=== PATIENT | male | born 1985 | race African-American/Black ===

== ENCOUNTER 2023-06-11 14:04 | Emergency (ER) | payer MEDICAID, SELFPAY ==
[2023-06-11] VITALS (18 sets, daily range): BP systolic 116–126; BP diastolic 76–88; PULSE 72–88; RESP 14–24; TEMP 36.8; O2SAT 94–100
--- NOTE | 2023-06-11 14:27 | ED.GENADUL_ITS ---
Discharge Plan Disposition Patient Disposition: Home Condition: Good Discharge Details Clinical Impression: Depression Primary Care Provider: None,None ED Provider: Von Beck Home Meds and New Rx's Prescriptions: No Action No Known Home Meds Discharge Instructions Instructions: Depression (ED) Additional Instructions: Please abide by the safety plan established with you by your mental health advocates. If you notice any worsening of your symptoms, or any new symptoms such as vomiting, diarrhea, fever, chills, shortness of breath, chest pain, numbness, weakness, or fainting , please return immediately to the emergency department for reevaluation. Please follow up with your primary care provider as soon as possible for reassessment and reevaluation. As always, it was a pleasure participating in your medical care today. Referrals: Abida Vilchis [Emergency Nurse] - Discharge Data Discharge Date/Time-TO BE ENTERED AT DEPARTURE: 06/12/23 10:52 Medical Decision Making <STEVAN Morales - Last Filed: 06/14/23 09:43> Patient is a pleasant 38-year-old male with past medical history significant for chronic alcohol use, pack-a-day smoker, presenting today with chief complaint of shortness of breath and suicidal ideation. He reports that he has plans to drink himself to . Did drink prior to arrival. He has been clean historically and states that he has not had any seizures with his withdrawals. Drank just prior to arrival and is not currently feeling like he is having any withdrawal symptoms. States that he has at max strength about 1 cake per day or half a gallon of hard liquor. Shortness of breath sounds to be chronic and he associates with smoking. He denies any chest pain. No fevers or chills. Endorses chronic cough but no change in his sputum production. Denies any GI upset today but states that yesterday he was having some vomiting associated with alcohol intake and that this was streaked with blood. No lauro red blood or large amounts of emesis. On exam, patient appears nontoxic. He is not tremulous or diaphoretic. He is resting comfortably no acute distress. Lungs are clear, normal cardiac exam. He does not appear anxious or restless. No acute evidence of ETOH withdrawal. Will put on CIWA with amount he drinks. No LE edema, calf pain. 2+ distal pulses. He has limited insight but is also intoxicated at this time. Endorses want to via ETOH intoxication and OD. Patient in safety clothing, one to one observer. Will obtain cxr for SOB, ECG, labs. Once sober, plan for MH evaluation. Concerned about MH. In regards to SOB, he is not having CP, unlikely ACS but will evaaluate with troponin. As this has been going on for days, not likely to need delta unless elevation. He does no thave personal, familial history or other risk factor for PE. No evidence of dissection. No chest trauma. He also advises that this could be asasociated with smoking. Will give nicotine supplementation. ECG without acute abnormaalaity. Labs reviewed. ETOH level 146. Has blood in urine which will need to be reevaluated by PCP. No other acute abnormality. At the end of my shift, patient resting comfortably, voluntarily waiting for MH evaluation and possible placement. Care transitioned to Albino Hilton with MH evaluation and disposition pending. 1600-patient signed out to me pending alcohol clearance, monitoring for any withdrawal symptoms, and psychiatric evaluation for suicidal ideations. Patient remained stable with no complaints or needs requested. Patient did have a recheck of alcohol and level was 12 so mental health was called for evaluation and evaluation. Patient signed out to Dr. Camille Stevenson pending psychiatric evaluation and recommendation. <Jorge Hilton, MELVIN - Last Filed: 06/12/23 00:20> Patient is a pleasant 38-year-old male with past medical history significant for chronic alcohol use, pack-a-day smoker, presenting today with chief complaint of shortness of breath and suicidal ideation. He reports that he has plans to drink himself to . Did drink prior to arrival. He has been clean historically and states that he has not had any seizures with his withdrawals. Drank just prior to arrival and is not currently feeling like he is having any withdrawal symptoms. States that he has at max strength about 1 cake per day or half a gallon of hard liquor. Shortness of breath sounds to be chronic and he associates with smoking. He denies any chest pain. No fevers or chills. Endorses chronic cough but no change in his sputum production. Denies any GI upset today but states that yesterday he was having some vomiting associated with alcohol intake and that this was streaked with blood. No lauro red blood or large amounts of emesis. On exam, patient appears nontoxic. He is not tremulous or diaphoretic. He is resting comfortably no acute distress. 1600-patient signed out to me pending alcohol clearance, monitoring for any withdrawal symptoms, and psychiatric evaluation for suicidal ideations. Patient remained stable with no complaints or needs requested. Patient did have a recheck of alcohol and level was 12 so mental health was called for evaluation and evaluation. Patient signed out to Dr. Camille Stevenson pending psychiatric evaluation and recommendation. HPI <STEVAN Morales - Last Filed: 06/14/23 09:43> General Date/Time Provider Initiated Documentation: 06/11/23 14:11 . Limitations to Documentation: no limitations . Information obtained by: patient and RN notes reviewed . History of Present Illness 38 year old M presents to the emergency department with the chief complaint of SI, wishes to detox from ETOH, described as moderate and similar to prior episodes, Quality is described as other (denies any pain), and is localized to the chest (endorses some SOB). Patient started experiencing this day(s) (chronic issues, worse in recent days) and it has been constant. No relieving factors improve symptom(s), No exacerbating factors reported . Patient notes cough (associated with smoking, states chronic), malaise and shortness of breath; denies chest pain, fever/chills, headaches, nausea/vomiting, rash, syncope and weakness. Patient did receive the following treatments prior to arrival, none Related Data Home Medications Medication Instructions Recorded Confirmed Unknown [No Known Home Meds] 06/11/23 06/11/23 Allergies Allergy/AdvReac Type Severity Reaction Status Date / Time tomato Allergy Intermediate Hives Unverified 06/11/23 14:09 General Stated Complaint: PsychEval MIRI: 2 Review of Systems <STEVAN Morales - Last Filed: 06/14/23 09:43> Constitutional Constitutional: Reports as per HPI, Denies chills, Denies fever(s) and Denies headache(s) ENT Ears, Nose, Mouth, and Throat: Denies headache(s) Cardiovascular Cardiovascular: Reports as per HPI, Denies chest pain and Denies lightheadedness Respiratory Respiratory: Reports as per HPI and Denies cough Gastrointestinal Gastrointestinal: Reports as per HPI, Denies abdominal pain, Denies change in bowel habits, Denies nausea and Denies vomiting Genitourinary Genitourinary: Denies system reviewed and no additional complaints, except as documented (denies any change in urinary habits) Integumentary/Breasts Skin/Breast: Reports as per HPI and Denies rash Neurologic Neurologic: Denies abnormal movements, Denies abnormal speech and Denies headache(s) PFSH <STEVAN Morales - Last Filed: 06/14/23 09:43> All Active Problems (Updated 06/12/23 @ 10:44 by Von Beck DO) Depression (Chronic) Social History Smoking/Tobacco Use Status: Current every day Tobacco Type: smokeless tobacco Smoking risk assessment performed?: Yes Alcohol Intake: current Alcohol Intake frequency: 3 or more drinks per day Alcohol type: beer Drug use: Never Substance use type: does not use Exam <STEVAN Morales - Last Filed: 06/14/23 09:43> Const General: cooperative, healthy appearing, comfortable, no acute distress, well developed and well groomed Nutritional Appearance: average body habitus and well nourished Orientation: alert and awake Eyes General: appearance normal, both eyes and all related structures Resp Effort & Inspection: normal respiratory effort, able to speak in complete sentences and no respiratory distress Auscultation: clear to auscultation bilaterally, no rales, no rhonchi and no wheezes Cardio Rate: regular rate Rhythm: regular rhythm Heart Sounds: S1 normal and S2 normal Skin General skin exam: no rashes or lesions noted and other (linear scars on left forearm) Trauma: no lacerations or abrasions Neuro General: patient alert and patient awake Cognition: normal cognition Speech: speech normal Gait: normal gait Psych Appearance: grossly normal and well kempt Mental Status: mental status grossly normal Speech and Movement: speech and movement normal Mood: congruent mood Affect: normal affect Attitude: cooperative Thought Process: normal Thought Content: suicidality (wants to by ETOH) Insight: limited Judgment: limited (has ETOH on board as well) Course <STEVAN Morales - Last Filed: 06/14/23 09:43> Vital Signs Vital signs: Vital Signs Temperature 36.8 C 06/11/23 14:00 Pulse 88 06/11/23 14:00 Respiratory Rate 14 06/11/23 14:00 Blood Pressure 124/80 06/11/23 14:00 Pulse Oximetry 100 06/11/23 14:00 Temperature 36.8 C 06/11/23 14:00 Temperature Source Skin 06/11/23 14:00 Pulse 88 06/11/23 14:00 Respiratory Rate 14 06/11/23 14:00 Blood Pressure 124/80 06/11/23 14:00 Blood Pressure Position Sitting 06/11/23 14:00 Pulse Oximetry 100 06/11/23 14:00 Oxygen Delivery Method Room Air 06/11/23 14:00 Oxygen Flow Rate 0 06/11/23 14:00 Pain Level 10 06/11/23 14:00 Sign Out <STEVAN Morales - Last Filed: 06/14/23 09:43> Sign Out Data: Sign Out Comment: Care transition to Jorge Hilton NP, with disposition pending. Patient hemodynamically stable with no acute abnormalities on labs. Here with chief complaint of shortness of breath, suicidal ideation and homicidality. He is agreeable and pleasant to staff at this time. CIRI protocol is established. No history of seizures with withdrawals. Last alcoholic beverage was just prior to arrival. Patient has not yet seen mental health. Chest x-ray pending. Shortness of breath was reported to be associated with smoking. Last updated by Adelina Becerril PA at 06/11/23 16:40 Sign Out Comment: Seen by crisis. Made a voluntary bed search. Not showing any acute signs of alcohol withdrawal at this time. No acute events overnight. I, Chaz Stevenson, have signed out care to the oncoming team pending voluntary bed search. Medically cleared but would still monitor for signs of significant alcohol withdrawal. Last updated by Chaz Stevenson MD at 06/12/23 04:53
--- NOTE | 2023-06-11 14:30 | RT.EKG_ITS ---
APPROVED REPORT Exam: Resting ECG Reason for Exam: SOB Patient Location: E HR:72 bpm ECG Measurements Heart Rate 72 AXIS WA 172 P 34 QRSd 80 QRS 5 QT 368 T 28 QTc 403 Conclusion Sinus rhythm...normal P axis, V-rate 60- 99 ST elev, probable normal early repol pattern...ST elevation, age<55
--- NOTE | 2023-06-11 14:30 | DI.RAD_ITS ---
Exam(s) XR CHEST 2V PA LATERAL EXAM: XR CHEST 2V PA LATERAL CLINICAL HISTORY: SOB. TECHNIQUE: 2D digital imaging was performed. COMPARISON: No exams were available for comparison FINDINGS: 2 views: Heart size is normal. The mediastinum is not widened. Lungs are clear. No infiltrates nor pleural effusions. IMPRESSION: No acute pulmonary findings. DATA REPOSITORY: RADIATION DOSE DELIVERED:
[2023-06-11 15:06] LABS: Abs Immature Grans 0.03 10^3/uL (0.0-0.06); Absolute Basophil Count 0.04 10^3/uL (0.0-0.2); Absolute Eosinophil Count 0.01 10^3/uL (0.0-0.7); Absolute Lymphocyte Count 1.28 10^3/uL (1.2-3.4); Absolute Monocyte Count 0.39 10^3/uL (0.1-0.8); Absolute Neutrophil Count 4.88 10^3/uL (1.2-6.7); Basophils % 0.6; Eosinophils % 0.2; HCT 42.5 % (40.0-50.0); HGB 14.1 g/dL (13.5-17.5); Immature Grans % 0.5; Lymphocytes % 19.3; MCH 33.1 pg (27.0-33.0); MCHC 33.2 % (32.0-36.0); MCV 100 fL (80-95); MPV 9.2 fL (8.0-11.0); Monocytes % 5.9; Neutrophils % 73.5; Platelet Count 207 10^3/uL (130-400); RBC 4.26 10^6/uL (4.36-5.78); RDW 11.9 % (11.8-14.1); RDW-SD 44.3 fL; WBC 6.63 10^3/uL (4.4-10.8)
[2023-06-11 15:07] LABS: Bilirubin Negative (Negative); Blood Trace-intact (Negative); Clarity Clear (Clear); Glucose Negative (Negative); Ketones Negative (Negative); Leukocyte Esterase Negative (Negative); Nitrite Negative (Negative); pH 5.5 (5-8)
[2023-06-11 15:19] LABS: Bacteria Rare HPF (Negative); Crystals Negative HPF (Negative); Epithelial Cells Rare HPF (Negative); Other Cells Negative (Negative); RBC 0-2 HPF (0-2); WBC 0-2 HPF (0-5)
[2023-06-11 15:20] LABS: C & S Indicated? No; Casts Negative LPF (Negative); Mucus Trace (Negative)
[2023-06-11 15:22] LABS: *AMPHETAMINES SCREEN URINE Negative (Negative); *BARBITURATES SCREEN URINE Negative (Negative); *BENZODIAZEPINES SCREEN URINE Negative (Negative); Cannabinoids THC Negative (Negative); Cocaine Screen,Urine Negative (Negative); METHADONE URINE SCREEN Negative (Negative); OPIATES URINE SCREEN Negative (Negative)
[2023-06-11 15:25] LABS: Tricyclic Antidepressants Negative (Negative)
[2023-06-11 15:27] LABS: Troponin I < 50 ng/L (<or=60)
[2023-06-11 15:33] LABS: Salicylate 3.1 mg/dL (<2.8)
[2023-06-11 15:35] LABS: ALT 43 U/L (16-63); AST 46 U/L (15-37); Albumin 3.9 g/dL (3.4-5.0); Alkaline Phosphatase 73 U/L (46-116); Anion Gap 6.8 mmol/L (3-11); BUN 15 mg/dL (7-18); CO2 31.2 mmol/L (21.0-32.0); CREATININE 1.1 mg/dL (0.70-1.30); Chloride 102 mmol/L (98-107); ETHANOL BLOOD 146.2 mg/dL (<10); Estimated GFR 87.57 (mL/min/1.73m2); Glucose 92 mg/dL (74-106); Potassium 4.6 mmol/L (3.5-5.1); Sodium 140 mmol/L (136-145); TSH (W/Ref FT4) 0.58 uIU/mL (0.36-3.74); Total Protein 7.9 g/dL (6.4-8.2)
[2023-06-11 15:36] LABS: Acetaminophen < 2 ug/mL (10-30)
[2023-06-11] MEDS: Nicotine 4 MG GUM CH (16:32)
--- NOTE | 2023-06-11 19:00 | NUR.NOTE ---
Addendum entered by Daniela Alejo RN 06/11/23 19:01: Assumed care of patient at this time. Original Note: Nursing Note: Report received from Earl YUSUF
[2023-06-11 21:03] LABS: ETHANOL BLOOD 12.9 mg/dL (<10)
--- NOTE | 2023-06-12 04:50 | W.EDPROG ---
Date of service: 06/12/23 Time of Service: 04:51 Medical Decision Making I, Chaz Stevenson, took signout on this patient. In summary 38-year-old male presents with suicidal ideation and alcohol intoxication. Clinically sober now and has cleared any alcohol that might of been in his system. Not showing signs of alcohol withdrawal. Seen by [facility] as he was still saying he wanted to drink himself to and he has been made a voluntary bed search. No acute events overnight. Medical Records Medical records reviewed: Yes I reviewed the patient's medical records. Sign Out Sign Out Data: Sign Out Comment: Care transition to Jorge Hilton NP, with disposition pending. Patient hemodynamically stable with no acute abnormalities on labs. Here with chief complaint of shortness of breath, suicidal ideation and homicidality. He is agreeable and pleasant to staff at this time. [facility] protocol is established. No history of seizures with withdrawals. Last alcoholic beverage was just prior to arrival. Patient has not yet seen mental health. Chest x-ray pending. Shortness of breath was reported to be associated with smoking. Last updated by Adelina Becerril PA at 06/11/23 16:40 Discharge Plan Discharge Details Chief Complaint: PsychEval Primary Care Provider: None,None ED Provider: Chaz Stevenson Home Meds and New Rx's Prescriptions: No Action No Known Home Meds
[2023-06-12] MEDS: Nicotine 4 MG GUM CH (08:42)
--- NOTE | 2023-06-12 10:42 | ED.PROG_ITS ---
Date of service: 06/12/23 Time of Service: 10:42 Medical Decision Making Patient was signed out to me by colleague Dr. Stevenson. Please refer to his HPI, physical exam, assessment plan. At time of signout we are awaiting reassessment by mental health. Patient is clinically sober. Patient feels much better. [facility] is seen and evaluated the patient, and at this time they and the patient feel comfortable going home. Safety plan has been established. Patient agrees with plan. The patient is able to speak clearly. There is no demonstration of any slurring of speech. There is evidence of clear decision making capacity. Patient is able to ambulate well without any difficulty. There are no signs of ataxia or stumbling motions.I have extensively reviewed the treatment plan and discharge instructions with the patient. I have addressed all patient concerns at this time. The patient was made aware of what symptoms to monitor for that would warrant a return to the emergency department. Discussed the plan with the patient, they demonstrate verbal understanding and agreement with our assessment and plan at this time. The documentation in this chart was dictated using Emida dictation software. Please excuse any dictation errors. Sign Out Sign Out Data: Sign Out Comment: Care transition to Jorge Hilton NP, with disposition pending. Patient hemodynamically stable with no acute abnormalities on labs. Here with chief complaint of shortness of breath, suicidal ideation and homicidality. He is agreeable and pleasant to staff at this time. [facility] protocol is established. No history of seizures with withdrawals. Last alcoholic beverage was just prior to arrival. Patient has not yet seen mental health. Chest x-ray pending. Shortness of breath was reported to be associated with smoking. Last updated by Adelina Becerril PA at 06/11/23 16:40 Sign Out Comment: Seen by crisis. Made a voluntary bed search. Not showing any acute signs of alcohol withdrawal at this time. No acute events overnight. I, Chaz Stevenson, have signed out care to the oncoming team pending voluntary bed search. Medically cleared but would still monitor for signs of significant alcohol withdrawal. Last updated by Chaz Stevenson MD at 06/12/23 04:53 Discharge Plan Disposition Patient Disposition: Home Condition: Good Discharge Details Chief Complaint: PsychEval Clinical Impression: Depression Primary Care Provider: None,None ED Provider: Hudson,Von R Home Meds and New Rx's Prescriptions: No Action No Known Home Meds Discharge Instructions Instructions: Depression (ED) Additional Instructions: Please abide by the safety plan established with you by your mental health advocates. If you notice any worsening of your symptoms, or any new symptoms such as vomiting, diarrhea, fever, chills, shortness of breath, chest pain, numbness, weakness, or fainting , please return immediately to the emergency department for reevaluation. Please follow up with your primary care provider as soon as possible for reassessment and reevaluation. As always, it was a pleasure participating in your medical care today. Referrals: Abida Vilchis [Emergency Nurse] -
--- NOTE | 2023-06-12 11:02 | CMPROGNOTE_ITS ---
Date of service: 06/12/23 Time of Service: 11:02 Care Management Progress Note Progress Note Text Progress Note Text: DISPOSITION: Yon presents in the ED on 06/11/2023 for suicidal ideation and intoxication. Once clinically sober, he was assessed by [facility] and remained at [facility] awaiting a voluntary psych placement. This morning, he is reassessed by Louise of [facility]. He now wishes to be discharged and declines to enter into a safety plan with [facility]. He is subsequently discharged to the community.
--- NOTE | 2023-06-12 11:02 | PDOC.CMPRO ---
Date of service: 06/12/23 Time of Service: 11:02 Care Management Progress Note Progress Note Text Progress Note Text: DISPOSITION: oYn presents in the ED on 06/11/2023 for suicidal ideation and intoxication. Once clinically sober, he was assessed by [facility] and remained at [facility] awaiting a voluntary psych placement. This morning, he is reassessed by Louise of [facility]. He now wishes to be discharged and declines to enter into a safety plan with [facility]. He is subsequently discharged to the community.
--- NOTE | 2023-06-12 14:06 | MHPN_ITS ---
Date of service: 06/12/23 Time of Service: 10:10 Mental Health Emergency Note Release [facility] release signed:: Yes Reason for Visit Client presented to [facility] ED [facility] on 06/11 due to shortness of breath and report of both suicidal and homicidal ideations. Client was under the influence of alcohol upon arrival to the ED. Client was assessed by TAYLOR Gay in the director of donor relations hour's of 06/12 where he reported to her plans of drinking himself to . Client is seen in person at [facility] ED by this personal lines underwriter this morning for re-assessment as he is currently seeking voluntary inpatient treatment. In the last 2 weeks has the pt presented for ES prior to today?: No Impression Client is a 38 y/o single male that is currently homeless, however per his report has been staying at the [facility] in [place] for the past month. Client reports that he came to [facility] ED to seek inpatient treatment in the [facility] and to get assistance with his substance use. Client presents with symptoms most congruent with major depressive disorder, however the client reports to this personal lines underwriter previous dx of Schzo- affective disorder. Client reports that he has been in the [facility] for about a month and is looking to get back to [place]. When this personal lines underwriter asks the client about suicidal and homicidal ideations he denies that he is having these thoughts. Client does not wish to seek inpatient treatment at this time and will be discharged back to the community. Plan/Disposition Recommended Disposition: Community resources (This client recommended that the client follow- through with [facility] in [place] where he reports that he is working with a case managerto get a bus ticket back to [place]. ). Plan: Client does not meet criteria for inpatient treatment at this time and does not wish to pursue inpatient treatment. Client is discharged from the hospital where he report that he will catch the [facility] bus back to [facility] so he can go to [facility]. Client declines to partake in safety plan with this personal lines underwriter. Client is provided with [facility] 24 hour phone number as well as [phone] to utilize as a resource if needed. Reports/communication Outcome discussed with: ED/Personnel (Verbal passover given to [facility] ED provider Dr. Beck. )
--- NOTE | 2023-06-12 14:06 | PDOC.MHPN2 ---
Date of service: 06/12/23 Time of Service: 10:10 Mental Health Emergency Note Release [facility] release signed:: Yes Reason for Visit Client presented to [facility] ED [facility] on 06/11 due to shortness of breath and report of both suicidal and homicidal ideations. Client was under the influence of alcohol upon arrival to the ED. Client was assessed by TAYLOR Gay in the painter interior finish hour's of 06/12 where he reported to her plans of drinking himself to . Client is seen in person at [facility] ED by this literary writer this morning for re-assessment as he is currently seeking voluntary inpatient treatment. In the last 2 weeks has the pt presented for ES prior to today?: No Impression Client is a 38 y/o single male that is currently homeless, however per his report has been staying at the [facility] in [place] for the past month. Client reports that he came to [facility] ED to seek inpatient treatment in the [facility] and to get assistance with his substance use. Client presents with symptoms most congruent with major depressive disorder, however the client reports to this literary writer previous dx of Schzo-affective disorder. Client reports that he has been in the [facility] for about a month and is looking to get back to [place]. When this literary writer asks the client about suicidal and homicidal ideations he denies that he is having these thoughts. Client does not wish to seek inpatient treatment at this time and will be discharged back to the community. Plan/Disposition Recommended Disposition: Community resources (This client recommended that the client follow- through with [facility] in [place] where he reports that he is working with a case managerto get a bus ticket back to [place]. ). Plan: Client does not meet criteria for inpatient treatment at this time and does not wish to pursue inpatient treatment. Client is discharged from the hospital where he report that he will catch the [facility] bus back to [facility] so he can go to [facility]. Client declines to partake in safety plan with this literary writer. Client is provided with [facility] 24 hour phone number as well as [phone] to utilize as a resource if needed. Reports/communication Outcome discussed with: ED/Personnel (Verbal passover given to [facility] ED provider Dr. Beck. )
== END 2023-06-12 10:52 | disposition home or self-care (01) ==
PROVIDERS: Nurse Practitioner Family; Physician Assistant; Emergency Provider Student in an Organized Health Care Education/Training Program
DX: R45.851 Suicidal ideations (principal); F10.120 Alcohol abuse with intoxication, uncomplicated; R06.02 Shortness of breath; F32.A Depression, unspecified; F17.210 Nicotine dependence, cigarettes, uncomplicated; Z59.00 Homelessness unspecified
CPT/HCPCS: 36415; 80053; 80307; 93005; 99284; 71046; 80320; 80329; 81003; 81015; 84443; 84484; 85025; 93010

== ENCOUNTER 2023-06-21 09:34 | Emergency (ER) | payer MEDICAID, SELFPAY ==
--- NOTE | 2023-06-21 09:30 | RT.EKG_ITS ---
APPROVED REPORT Exam: Resting ECG Reason for Exam: sob Patient Location: E HR:68 bpm ECG Measurements Heart Rate 68 AXIS WV 166 P 37 QRSd 72 QRS 34 QT 386 T 28 QTc 410 Conclusion Sinus rhythm...normal P axis, V-rate 60- 99 ST elevation, consider anterior injury...ST >0.15mV, V1-V5 Physician: diffuse ST evelation suggestive of repol. no stemi, unchanged from prior ekg on 06/11/23
[2023-06-21 09:37] VITALS: BP 125/76; PULSE 81; RESP 16; TEMP 36.9; O2SAT 98
--- OUTSIDE RECORDS SUMMARY | 2023-06-21 09:39 | XMS_ITS | Referral Summary ---
Author Name Unknown Organization [facility] o [address] [phone] [place] [address]- Care Team Providers Care Perl Software Engineer Name Role Phone PCP, Not on Staff Primary Care Physician Unavail able Encounter MRCY_FIN [id number] Date(s): 11/10/15 - 11/15/[address] [place]xxxxxxx [phone]- [phone] Discharge Diagnosis: Suicidal ideations Discharge Diagnosis: Bipolar disorder, unspecified Discharge Diagnosis: Tobacco use Discharge Disposition: Psychiatric/Mental Health Facility Attending Physician: CHAN RUST MD Vital Signs Most recent to oldest [Reference Range]: 1 2 3 4 5 6 7 8 9 10 Pain Intensity 0 (11/15/15 8:08 AM) 0 (11/15/15 6:33 AM) 0 (11/14/15 4:00 AM) 0 (11/10 10:27 PM) Pain Scale Used Numeric Rating Scale (11/15/15 6:33 AM) Numeric Rating Scale (11/14/15 4:00 AM) Numeric Rating Scale (11/10/15 10:27 PM) Temperature PO [36-37.5 deg C] 36.8 deg C (11/15/15 8:08 AM) 36.8 deg C (11/15/15 6:33 AM) 36.0 deg C (11/13/15 8:00 PM) 36.7 deg C ( 6 8:00 AM) 36.6 deg C ( 6 7:30 PM) 36.0 deg C ( 6 10:43 AM) 36.2 deg C (11/11 11:00 PM) 35.8 deg C *L* (11/11 4:00 PM) 35.5 deg C *L* (11/11 9:00 AM) 37 deg C (10/14 11/26 1:30 AM) Temp Tympanic [36.2-38.1 deg C] 36.8 deg C (11/10/15 10:27 PM) Heart Rate [50-120 bpm] 70 bpm (11/15/15 8:08 AM) 69 bpm (11/15/15 6:33 AM) 75 bpm (11/14/15 9:00 PM) 61 bpm ( 8:48 AM) 72 bpm ( 4:00 AM) 58 bpm ( 8:00 PM) 66 bpm ( 8:00 AM) 70 bpm ( 7:30 PM) 64 bpm ( 10:43 AM) 74 bpm (10/14 11/26 11:00 PM) Blood Pressure [90-160/40-140 mm Hg] 108/63mm Hg (11/15/15 8:08 AM) 109/53mm Hg (11/14/15 9:00 PM) 107/60mm Hg (11/14/15 4:00 AM) 103/61 mm Hg ( 8:00 PM) 99/50m m Hg ( 8:00 AM) 130/62 mm Hg ( 7:30 PM) 119/63 mm Hg ( 10:43 AM) 131/58 mm Hg (11/11 11:00 PM) NIBP Systolic [90-160 mm Hg] 108 mm Hg (11/15/15 6:33 AM) 121 mm Hg (11/14/15 8:48 AM) NIBP Diastolic [40-140 mm Hg] 63 mm Hg (11/15/15 6:33 AM) 65 mm Hg (11/14/15 8:48 AM) NIBP Mean 65 mm Hg (11/14/15 8:48 AM) Resp Rate (Monitor) [12-20 Breaths/Min] 20 Breaths/Mi n (11/15/15 6:33 AM) 20 Breaths/Mi n (11/14/15 9:00 PM) 16 Breaths/Mi n (11/14/15 8:48 AM) 16 Breath s/Min ( 4:00 AM) 17 Breath s/Min ( 8:00 PM) 16 Breath s/Min ( 8:00 AM) 18 Breath s/Min ( 7:30 PM) 16 Breath s/Min ( 10:43 AM) 18 Breath s/Min (11/11 11:00 PM) 14 Breat hs/Mi n (10/14 11/26 4:00 PM) SPO2 [87-100 %] 100 % (11/15/15 8:08 AM) 100 % (11/15/15 6:33 AM) 96 % (11/14/15 9:00 PM) 99 % ( 8:48 AM) 99 % ( 4:00 AM) 99 % ( 8:00 PM) 100 % ( 8:00 AM) 99 % ( 7:30 PM) 97 % (11/11 1:30 AM) 96 % (10/14 10:27 PM) Oxygen Amount Room air (11/15/15 6:33 AM) Room air (11/14/15 9:00 PM) Room air (11/14/15 8:48 AM) Room air ( 4:00 AM) Room air ( 8:00 PM) Room air ( 8:00 AM) Room air ( 10:43 AM) Room air (11/11 4:00 PM) Room air (11/11 9:00 AM) FIO2 - pt care 98 % (11/12/15 10:43 AM) 98 % (11/11/15 11:00 PM) Glucose Level [70-99 mg/dL] 83 mg/dL (11/10/15 11:32 PM) Height [244.00 cm] 170 cm (11/10/15 10:27 PM) Drug Calc Weight (kg) 72.7 kg (11/10/15 10:27 PM) Weight Method Stated (11/10/15 10:27 PM) BMI 25.16 (11/10/15 10:27 PM) Problem List Condition Effective Dates Status Health Status Inform ant Bipolar 1 disorder(Confirmed) Active HIV disease(Confirmed) Active Allergies, Adverse Reactions, Alerts No Known Allergies Medications No Known Medications Results General Chemistry Most recent to oldest [Reference Range]: 1 Sodium [136-146 mmol/L] 136 mmol/L (11/10/15 11:32 PM) Potassium [3.5-5.5 mmol/L] 3.9 mmol/L (11/10/15 11:32 PM) Chloride [98-110 mmol/L] 101 mmol/L (11/10/15 11:32 PM) CO2 [24-32 mmol/L] 27 mmol/L (11/10/15 11:32 PM) Anion Gap [6-17 mmol/L] 12 mmol/L (11/10/15 11:32 PM) Glucose Level [70-99 mg/dL] 83 mg/dL (11/10/15 11:32 PM) BUN [8-25 mg/dL] 19 mg/dL (11/10/15 11:32 PM) Creatinine [0.50-1.50 mg/dL] 1.17 mg/dL (11/10/15 11:32 PM) BUN/Second Helper Ratio [8-24] 16 (11/10/15 11:32 PM) eGFR Non- Am 73 mL/min/1.73m2 *NA* (11/10/15 11:32 PM) eGFR Afr/Amer 88 mL/min/1.73m2 *NA* (11/10/15 11:32 PM) Calcium [8.4-10.5 mg/dL] 9.0 mg/dL (11/10/15 11:32 PM) Corrected Calcium [8.4-10.5 mg/dL] 8.9 m g/dL (11/10/15 11:32 PM) Protein, Total [6.0-8.0 gm/dL] 6.9 gm/dL (11/10/15 11:32 PM) Albumin [3.0-5.0 gm/dL] 4.1 gm/dL (11/10/15 11:32 PM) Bili Total [0.2-1.2 mg/dL] 1.5 mg/dL *H* (11/10/15 11:32 PM) ALT [0-45 IU/L] 39 IU/L (11/10/15 11:32 PM) AST [0-40 IU/L] 49 IU/L *H* (11/10/15 11:32 PM) Alkphos [35-130 IU/L] 67 IU/L (11/10/15 11:32 PM) Hematology-CBC Most recent to oldest [Reference Range]: 1 WBC [4.3-11.0 K/uL] 8.8 K/uL (11/10/15 11:32 PM) RBC [4.40-5.90 million/uL] 4.09 million/ uL *L* (11/10/15 11:32 PM) Hgb [13.5-17.5 gm/dL] 12.6 gm/dL *L* (11/10/15 11:32 PM) Hct [41.0-52.0 %] 39.2 % *L* (11/10/15 11:32 PM) MCV [80.0-100.0 fL] 95.8 fL (11/10/15 11:32 PM) MCH [25.0-35.0 pg] 30.7 pg (11/10/15 11:32 PM) MCHC [31.0-37.0 gm/dL] 32.0 gm/dL (11/10/15 11:32 PM) RDW [11.5-14.5 %] 13.2 % (11/10/15 11:32 PM) Plt [150-400 K/uL] 237 K/uL (11/10/15 11:32 PM) Therapeutic Drugs Most recent to oldest [Reference Range]: 1 Acetaminophen Level [10-30 mcg/mL] <10 m cg/mL *L* (11/10/15 11:32 PM) Salicylate Level [0-20 mg/dL] <4 mg/dL (11/10/15 11:32 PM) Toxicology Most recent to oldest [Reference Range]: 1 Ethanol [<=5 mg/dL] <5 mg/dL (11/10/15 11:32 PM) Amphetamines Ur Negative *NA* (11/10/15 11:00 PM) Barbiturate Ur Negative *NA* (11/10/15 11:00 PM) Benzodiazepine Ur Negative *NA* (11/10/15 11:00 PM) Cocaine Ur Negative *NA* (11/10/15 11:00 PM) UMethadone Scr Negative *NA* (11/10/15 11:00 PM) Opiates Ur Negative *NA* (11/10/15 11:00 PM) PCP Scrn, Ur Negative *NA* (11/10/15 11:00 PM) THC, Ur Negative *NA* (11/10/15 11:00 PM) Tricyclic Scr, Ur Negative *NA* (11/10/15 11:00 PM) DrgScrn Method Instrument (11/10/15 11:00 PM) DrugScrn Interp URINE DRUG ABUSE SCR EEN THRESHOLD LIMITS ARE FOLLOWS Amphetamines 1000 ng/mL Benzodiazepines 200 ng/mL Cocaine Metabolite 300 ng/mL Opiates 300 ng/mL Barbiturates 200 ng/mL Tetrahydrocannibinol (THC) 50 ng/mL Phencyclidine (PCP) 25 ng/mL Tricyclic Antidepressants 500 ng/mL Methadone 300 ng/mL NOTE: The above assays provide only preliminary analytical results. If confirmation or quantification is needed, please request the specific assay(s) desired. Results are for medical purposes only. *Unknown* (11/10/15 11:00 PM) Immunizations Not Given Vaccine Date Status Refusal Reason influenza virus vaccine, inactivated 12/24/15 Not Given Patient Refuses Procedures Procedure Date Related Diagnosis Body Site None Social History Social History Type Response Tobacco Daily 10+ cigarettes , Cigarettes, Chewing tobacco Smoking Status Current every day sm oker Functional Status No data available for this section Assessment and Plan No data available for this section Hospital Discharge Instructions No data available for this section
--- OUTSIDE RECORDS SUMMARY | 2023-06-21 09:39 | XMS_ITS | Referral Summary ---
Author Name Unknown Organization [facility] o [address] [phone] [place] [address]- Care Team Providers Care Crm Business Analyst Name Role Phone PCP, Not on Staff Primary Care Physician Unavail able Encounter MRCY_FIN [id number] Date(s): 12/20/15 - 12/21/[address] [place] [phone]- [phone] Discharge Diagnosis: Suicidal ideations Discharge Diagnosis: Bipolar disorder, unspecified Discharge Disposition: Home/self care Attending Physician: Kelvin Ibarra MD Vital Signs Most recent to oldest [Reference Range]: 1 2 3 4 5 6 Pain Intensity 0 (12/20/15 6:27 PM) Pain Scale Used Numeric Rating Scale (12/20/15 6:27 PM) Temperature PO [36-37.5 deg C] 36.9 deg C (12/21/15 8:21 PM) 36.8 deg C (12/21/15 1:15 PM) 37.1 deg C (12/21/15 6:00 AM) 37.1 deg C (12/20/15 9:47 PM) Temperature Temporal Artery [36.4-38.1 deg C] 36.7 deg C (12/21/15 6:24 PM) 37.1 deg C (12/20/15 6:27 PM) Heart Rate [50-120 bpm] 74 bpm (12/21/15 8:21 PM) 67 bpm (12/21/15 6:24 PM) 78 bpm (12/21/15 1:15 PM) 68 bpm (12/21/15 6:00 AM) 70 bpm (12/20/15 9:47 PM) 80 bpm (12/20/15 6:27 PM) Blood Pressure [90-160/40-140 mm Hg] 109/60mm Hg (12/21/15 8:21 PM) 106/72mm Hg (12/21/15 6:24 PM) 130/88mm Hg (12/21/15 1:15 PM) 112/61mm Hg (12/21/15 6:00 AM) 124/74mm Hg (12/20/15 9:47 PM) 127/84mm Hg (12/20/15 6:27 PM) Resp Rate (Monitor) [12-20 Breaths/Min] 16 Breaths/Min (12/21/15 8:21 PM) 18 Breaths/Min (12/21/15 6:24 PM) 18 Breaths/Min (12/21/15 1:15 PM) 16 Breaths/Mi n (12/21/15 6:00 AM) 18 Breaths/Mi n (12/20/15 9:47 PM) 20 Breaths/Mi n (12/20/15 6:27 PM) SPO2 [87-100 %] 97 % (12/21/15 8:21 PM) 100 % (12/21/15 6:24 PM) 99 % (12/21/15 1:15 PM) 99 % (12/21/15 6:00 AM) 99 % (12/20/15 9:47 PM) 99 % (12/20/15 6:27 PM) Oxygen Amount Room air (12/21/15 8:21 PM) Room air (12/21/15 6:24 PM) Room air (12/21/15 1:15 PM) Glucose Level [70-99 mg/dL] 94 mg/dL (12/20/15 7:23 PM) Most recent to [Reference Range]: 1 2 3 4 5 6 Height [244.00 cm] 177 cm (12/20/15 6:27 PM) Drug Calc Weight (kg) 72.7 kg (12/20/15 6:27 PM) Weight Method Stated (12/20/15 6:27 PM) Most recent to [Reference Range]: 1 2 3 4 5 6 BMI 23.21 (12/20/15 6:27 PM) Problem List Condition Effective Dates Status Health Status Inform ant Bipolar 1 disorder(Confirmed) Active HIV disease(Confirmed) Active Allergies, Adverse Reactions, Alerts No Known Allergies Medications No Known Medications Results General Chemistry Most recent to oldest [Reference Range]: 1 Sodium [136-146 mmol/L] 140 mmol/L (12/20/15 7: PM) Potassium [3.5-5.5 mmol/L] 4.4 mmol/L (12/20/15: PM) Chloride [98-110 mmol/L] 103 mmol/L (12/20/15: PM) CO2 [24-32 mmol/L] 30 mmol/L (12/20/15: PM) Anion Gap [6-17 mmol/L] 11 mmol/L (12/20/15: PM) Glucose Level [70-99 mg/dL] 94 mg/dL (12/20/15: PM) BUN [8-25 mg/dL] 14 mg/dL (12/20/15: PM) Creatinine [0.50-1.50 mg/dL] 1.10 mg/dL (12/20/15:23 PM) BUN/Relay Shop Tester Ratio [8-24] 13 (12/20/15: PM) eGFR Non- Am 78 mL/min/1.73m2 *NA* (12/20/15: PM) eGFR Afr/Amer 94 mL/min/1.73m2 *NA* (12/20/15: PM) Calcium [8.4-10.5 mg/dL] 9.4 mg/dL (12/20/15: PM) Hematology-CBC Most recent to oldest [Reference Range]: 1 WBC [4.3-11.0 K/uL] 6.4 K/uL (12/20/15: PM) RBC [4.40-5.90 million/uL] 4.34 million/ uL *L* (12/20/15: PM) Hgb [13.5-17.5 gm/dL] 13.7 gm/dL (12/20/15: PM) Hct [41.0-52.0 %] 42.2 % (12/20/15: PM) MCV [80.0-100.0 fL] 97.4 fL (12/20/15: PM) MCH [25.0-35.0 pg] 31.7 pg (2/8/16 7:23 PM) MCHC [31.0-37.0 gm/dL] 32.5 gm/dL (12/20/15 7:23 PM) RDW [11.5-14.5 %] 12.8 % (12/20/15 7:23 PM) Plt [150-400 K/uL] 237 K/uL (12/20/15 7:23 PM) Therapeutic Drugs Most recent to oldest [Reference Range]: 1 Acetaminophen Level [10-30 mcg/mL] <10 m cg/mL *L* (12/20/15 7:23 PM) Salicylate Level [0-20 mg/dL] <4 mg/dL *NA* (12/20/15 7:23 PM) Toxicology Most recent to oldest [Reference Range]: 1 Ethanol [<=5 mg/dL] 81 mg/dL *H* (12/20/15 7:23 PM) Amphetamines Ur Negative *NA* (12/21/15 1:40 AM) Barbiturate Ur Negative *NA* (12/21/15 1:40 AM) Benzodiazepine Ur Negative *NA* (12/21/15 1:40 AM) Cocaine Ur Negative *NA* (12/21/15 1:40 AM) UMethadone Scr Negative *NA* (12/21/15 1:40 AM) Opiates Ur Negative *NA* (12/21/15 1:40 AM) PCP Scrn, Ur Negative *NA* (12/21/15 1:40 AM) THC, Ur Negative *NA* (12/21/15 1:40 AM) Tricyclic Scr, Ur Negative *NA* (12/21/15 1:40 AM) DrgScrn Method Instrument (12/21/15 1:40 AM) DrugScrn Interp URINE DRUG ABUSE SCR EEN [...] Results are for medical purposes only. *Unknown* (12/21/15 1:40 AM) Urinalysis Most recent to oldest [Reference Range]: 1 Color [Yellow] Yellow (12/21/15 1:45 PM) Appearance [Clear] Clear (12/21/15 1:45 PM) Specific [place] [1.005-1.035] 1.015 (12/21/15 1:45 PM) UpH [5.0-7.0] 7.0 (12/21/15 1:45 PM) UGlucose [Negative] Negative *NA* (12/21/15 1:45 PM) UBilirubin [Negative] Negative *NA* (12/21/15 1:45 PM) UKetones [Negative] Negative (12/21/15 1:45 PM) UBlood [Negative] Negative *NA* (12/21/15 1:45 PM) UProtein [Negative] Negative *NA* (12/21/15 1:45 PM) UA Urobilinogen [0.2-1.0 EU/dL] 0.2 EU/d L *NA* (12/21/15 1:45 PM) UNitrite [Negative] Negative *NA* (12/21/15 1:45 PM) ULeukocyte Esterase [Negative] Negative *NA* (12/21/15 1:45 PM) UCIF Yes/No No (12/21/15 1:45 PM) Immunizations No data available for this section Procedures Procedure Date Related Diagnosis Body Site None Social History Social History Type Response Tobacco Daily 10+ cigarettes , Cigarettes, Chewing tobacco Smoking Status Current every day sm oker Functional Status No data available for this section Assessment and Plan No data available for this section Hospital Discharge Instructions No data available for this section
--- OUTSIDE RECORDS SUMMARY | 2023-06-21 09:39 | XMS_ITS | Referral Summary ---
Author Name Unknown Organization [facility] o [address] [phone] [place] [address]- Care Team Providers Care Moccasin Sewer Name Role Phone PCP, Not on Staff Primary Care Physician Unavail able Encounter MRCY_FIN [id number] Date(s): 12/28/15 - 12/29/[address] [place] [phone]- [phone] Discharge Diagnosis: Bipolar disorder, unspecified Discharge Diagnosis: Patient's noncompliance with other medical treatment and regimen Discharge Disposition: Left Before Trtment Completed (Eloped) Attending Physician: Macy Mckeon MD Vital Signs Most recent to oldest [Reference Range]: 1 Pain Intensity 10 (12/28/15 11:46 PM) Pain Scale Used Numeric Rating Scale (12/28/15 11:46 PM) Temperature Temporal Artery [36.4-38.1 d eg C] 36.5 deg C (12/28/15 11:46 PM) Heart Rate [50-120 bpm] 91 bpm (12/28/15 11:46 PM) Blood Pressure [90-160/40-140 mm Hg] 130 /73mm Hg (12/28/15 11:46 PM) Resp Rate (Monitor) [12-20 Breaths/Min] 16 Breaths/Min (12/28/15 11:46 PM) SPO2 [87-100 %] 96 % (12/28/15 11:46 PM) Oxygen Amount Room air (12/28/15 11:46 PM) Most recent to oldest [Reference Range]: 1 Height [244.00 cm] 177.8 cm (12/28/15 11:46 PM) Drug Calc Weight (kg) 81.818 kg (12/28/15 11:46 PM) Weight Method Stated (12/28/15 11:46 PM) Most recent to oldest [Reference Range]: 1 BMI 25.88 (12/28/15 11:46 PM) Problem List Condition Effective Dates Status Health Status Inform ant Bipolar 1 disorder(Confirmed) Active HIV disease(Confirmed) Active Allergies, Adverse Reactions, Alerts No Known Allergies Medications No data available for this section Results No data available for this section Immunizations No data available for this section [...]
--- OUTSIDE RECORDS SUMMARY | 2023-06-21 09:40 | XMS_ITS | Referral Summary ---
Author Name Unknown Organization [facility] o [address] [phone] [place] [address]- Care Team Providers Care Residential Advisor Name Role Phone PCP, Not on Staff Primary Care Physician Unavail able Encounter MRCY_FIN [id number] Date(s): 11/29/15 - 11/29/[address] [place]xxx [phone]- [phone] Discharge Diagnosis: Bipolar disorder, current episode depressed, mild or moderate severity, unspecified Discharge Diagnosis: Pain in right hand Discharge Disposition: Psychiatric/Mental Health Facility Attending Physician: Gabbie Steve MD Vital Signs Most recent to oldest [Reference Range]: 1 2 3 4 Pain Intensity 3 (11/29/15 2:21 AM) 3 (11/29/15 2:21 AM) 10 (11/29/15 1:51 AM) 10 (11/29/15 12:38 AM) Pain Scale Used Numeric Rating Scale (11/29/15 2:21 AM) Numeric Rating Scale (11/29/15 2:21 AM) Numeric Rating Scale (11/29/15 1:51 AM) Numeric Rating Scale (11/29/15 12:38 AM) Temperature PO [36.0-37.5 deg C] 35.7 deg C *L* (11/29/15 12:38 AM) Heart Rate [50-120 bpm] 74 bpm (11/29/15 6:53 AM) 74 bpm (11/29/15 12:38 AM) Blood Pressure [90-160/40-140 mm Hg] 117/68mm Hg (11/29/15 6:53 AM) 134/85mm Hg (11/29/15 12:38 AM) Resp Rate (Monitor) [12-20 Breaths/Min] 18 Breaths/Min (11/29/15 6:53 AM) 18 Breaths/Min (11/29/15 12:38 AM) SPO2 [87-100 %] 100 % (11/29/15 6:53 AM) 100 % (11/29/15 12:38 AM) Oxygen Amount Room air (11/29/15 12:38 AM) Height [244.00 cm] 177 cm (11/29/15 12:38 AM) Drug Calc Weight (kg) 90 kg (11/29/15 12:38 AM) Weight Method Stated (11/29/15 12:38 AM) BMI 28.73 (11/29/15 12:38 AM) Problem List Condition Effective Dates Status Health Status Inform ant Bipolar 1 disorder(Confirmed) Active HIV disease(Confirmed) Active Allergies, Adverse Reactions, Alerts No Known Allergies Medications No Known Medications Results Therapeutic Drugs Most recent to oldest [Reference Range]: 1 Acetaminophen Level [10-30 mcg/mL] <10 m cg/mL *L* (11/29/15 1:58 AM) Salicylate Level [0-20 mg/dL] <4 mg/dL *NA* (11/29/15 1:58 AM) Toxicology Most recent to oldest [Reference Range]: 1 Ethanol [<=5 mg/dL] <5 mg/dL (11/29/15 1:58 AM) Amphetamines Ur Negative *NA* (11/29/15 1:20 AM) Barbiturate Ur Negative *NA* (11/29/15 1:20 AM) Benzodiazepine Ur Negative *NA* (11/29/15 1:20 AM) Cocaine Ur Negative *NA* (11/29/15 1:20 AM) UMethadone Scr Negative *NA* (11/29/15 1:20 AM) Opiates Ur Negative *NA* (11/29/15 1:20 AM) PCP Scrn, Ur Negative *NA* (11/29/15 1:20 AM) THC, Ur Negative *NA* (11/29/15 1:20 AM) Tricyclic Scr, Ur Negative *NA* (11/29/15 1:20 AM) DrgScrn Method Instrument (11/29/15 1:20 AM) DrugScrn Interp URINE DRUG ABUSE SCR [...] Results are for medical purposes only. *Unknown* (11/29/15 1:20 AM) Immunizations Not Given Vaccine Date Status Refusal [...] available for this section Hospital Discharge Instructions Patient Education 11/29/2015 00:37:20 Depression, Adult Depression, Adult Depression refers to feeling sad, low, down in the dumps, blue, gloomy, or empty. In general, thereare two kinds of depression: 1. Depression that we all experience from time to time because of upsetting life experiences, including the loss of a job or the ending of a relationship (normal sadness or normal grief). This kind of depression is considered normal, is short lived, and resolves within a few days to 2 weeks. (Depression experienced after the loss of a loved one is called bereavement. Bereavement often lasts longer than 2 weeks but normally gets better with time.) 2. Clinical depression, which lasts longer than normal sadness or normal grief or interferes with your ability to function at home, at work, and in school. It also interferes with your personal relationships. It affects almost every aspect of your life. Clinical depression is an illness. Symptoms of depression also can be caused by conditions other than normal sadness and grief or clinical depression. Examples of these conditions are listed as follows: ??? Physical illness???Some physical illnesses, including underactive thyroid gland (hypothyroidism), severe anemia, specific types of cancer, diabetes, uncontrolled seizures, heart and lung problems, strokes, and chronic pain are commonly associated with symptoms of depression. ??? Side effects of some prescription medicine???In some people, certain types of prescription medicine can cause symptoms of depression. ??? Substance abuse???Abuse of alcohol and illicit drugs can cause symptoms of depression. SYMPTOMS Symptoms of normal sadness and normal grief include the following: ??? Feeling sad or crying for short periods of time. ??? Not caring about anything (apathy). ??? Difficulty sleeping or sleeping too much. ??? No longer able to enjoy the things you used to enjoy. ??? Desire to be by oneself all the time (social isolation). ??? Lack of energy or motivation. ??? Difficulty concentrating or remembering. ??? Change in appetite or weight. ??? Restlessness or agitation. Symptoms of clinical depression include the same symptoms of normal sadness or normal grief and also the following symptoms: ??? Feeling sad or crying all the time. ??? Feelings of guilt or worthlessness. ??? Feelings of hopelessness or helplessness. ??? Thoughts of suicide or the desire to harm yourself (suicidal ideation). ??? Loss of touch with reality (psychotic symptoms). Seeing or hearing things that are not real (hallucinations) or having false beliefs about your life or the people around you (delusions and paranoia). DIAGNOSIS The diagnosis of clinical depression usually is based on the severity and duration of the symptoms.Your caregiver also will ask you questions about your medical history and substance use to find outif physical illness, use of prescription medicine, or substance abuse is causing your depression. Your caregiver also may order blood tests. TREATMENT Typically, normal sadness and normal grief do not require treatment. However, sometimes antidepressant medicine is prescribed for bereavement to ease the depressive symptoms until they resolve. The treatment for clinical depression depends on the severity of your symptoms but typically includes antidepressant medicine, counseling with a mental health professional, or a combination of both. Your caregiver will help to determine what treatment is best for you. Depression caused by physical illness usually goes away with appropriate medical treatment of the illness. If prescription medicine is causing depression, talk with your caregiver about stopping the medicine, decreasing the dose, or substituting another medicine. Depression caused by abuse of alcohol or illicit drugs abuse goes away with abstinence from these substances. Some adults need professional help in order to stop drinking or using drugs. SEEK IMMEDIATE CARE IF: ??? You have thoughts about hurting yourself or others. ??? You lose touch with reality (have psychotic symptoms). ??? You are taking medicine for depression and have a serious side effect. FOR MORE INFORMATION National [place] on Mental Illness: www.dominic.org?? National [place] of Mental Health: www.[facility].nih.gov?? Document Released: 10/26/2001 Document Revised: 04/29/2013 Document Reviewed: 01/27/2013 ExitCare?? Patient Information ??2015 [employer]. This information is not intended to replace advice given to you by your health care provider. Make sure you discuss any questions you have with your health care provider. Thumb Dislocation Thumb Dislocation Thumb dislocation is the displacement of the large bone of your thumb (metacarpal) from the socket that connects it to your hand. Very strong, fibrous tissues (ligaments) connect your thumb metacarpal to a bone in your hand at your thumb joint. Dislocation is caused by a forceful impact to your thumb. This impact moves your thumb metacarpal off your thumb joint and often tears your ligaments. Thumb dislocation usually occurs on the back (dorsal) side of your thumb. SYMPTOMS Symptoms of thumb dislocation include: ??? Noticeable deformity of your thumb. ??? Pain, with loss of movement. ??? Weakened employment service specialist between your thumb and your index finger. ??? Looseness in the joint, indicating a tear of the ligaments. DIAGNOSIS Thumb dislocation is diagnosed with a physical exam. Often, X-ray exams are done to see if you haveassociated injuries, such as bone fractures. TREATMENT Thumb dislocations are treated by putting your bones back into position (reduction) either by manually moving the bones back into place or through surgery. Your thumb is then kept in a fixed position(immobilized) with the use of a plaster cast or splint for 4 to 6 weeks. When your ligament has to be surgically repaired, it needs to be kept in a fixed position with a plaster cast or splint for 6 weeks. Hand exercises or physical therapy to maintain the range of motionand to regain strength is usually started as soon as the ligament is healed. Exercises and therapy generally last no more than 3 months. HOME CARE INSTRUCTIONS The following measures can help to reduce pain and speed up the healing process: ??? Rest your injured joint. Do not move it. Avoid activities similar to the one that caused your injury. ??? Apply ice to your injured joint for the first day or 2 after your reduction or as directed by your caregiver. Applying ice helps to reduce inflammation and pain. ? Put ice in a plastic bag. ? Place a towel between your skin and the bag. ? Leave the ice on for 15 to 20 minutes at a time, every 2 hours while you are awake. ??? Elevate your hand above your heart as directed by your caregiver. ??? Take [id number] or prescription medicine for pain as your caregiver instructs you. SEEK IMMEDIATE MEDICAL CARE IF: ??? Your cast becomes damaged. ??? Your pain becomes worse rather than better. ??? You lose feeling in your thumb or cannot move the tip of your thumb. MAKE SURE YOU: ??? Understand these instructions. ??? Will watch your condition. ??? Will get help right away if you are not doing well or get worse. Document Released: 01/07/2003 Document Revised: 01/20/2013 Document Reviewed: 03/28/2012 ExitCare?? Patient Information ??2015 [employer]. This information is not intended to replace advice given to you by your health care provider. Make sure you discuss any questions you have with your health care provider. Follow Up Care 11/29/2015 00:37:20 [facility] [place] Address:Unknown When:Unknown Comments:Please follow up at [facility] for your psychiatric care, and have someone check your medicines to see what you are really supposed to be on . I have written you these prescriptions, but you need to verify your medicines and doses. Take hte ibuprofen for your hand pain, and [facility] Dr Dhillon about your thumb With:Matt Dhillon Address: [address] [place] [address] [address] [place] [address] [phone] Business (1) When:2 to 4 days
--- OUTSIDE RECORDS SUMMARY | 2023-06-21 09:40 | XMS_ITS | Referral Summary ---
Author Name Unknown Organization [facility] o [address] [phone] [place] [address]- Care Team Providers Care Barrel Filler Head Name Role Phone PCP, Not on Staff Primary Care Physician Unavail able Encounter MRCY_FIN [id number] Date(s): 11/27/15 - 11/28/[address] [place] [phone]- [phone] Discharge Diagnosis: Suicidal ideations Discharge Diagnosis: Suicidal ideation, Resolved Discharge Diagnosis: Marijuana abuse Discharge Diagnosis: Cannabis abuse, uncomplicated Discharge Disposition: Psychiatric/Mental Health Facility Attending Physician: Kelvin Ibarra MD Vital Signs Most recent to oldest [Reference Range]: 1 2 3 Pain Intensity 0 (11/27/15 6:51 PM) Pain Scale Used Numeric Rating Scale (11/27/15 6:51 PM) Temperature PO [36-37.5 deg C] 36.8 deg C (11/28/15 4:00 PM) 36.6 deg C (11/28/15 8:07 AM) Temperature Temporal Artery [36.4-38.1 deg C] 37 deg C (11/27/15 6:51 PM) Heart Rate [50-120 bpm] 89 bpm (11/28/15 4:00 PM) 100 bpm (11/28/15 8:07 AM) 86 bpm (11/27/15 6:51 PM) Blood Pressure [90-160/40-140 mm Hg] 118/68mm Hg (11/28/15 4:00 PM) 133/67mm Hg (11/28/15 8:07 AM) 138/63mm Hg (11/27/15 6:51 PM) Resp Rate (Monitor) [12-20 Breaths/Min] 19 Breaths/Min (11/28/15 4:00 PM) 18 Breaths/Min (11/28/15 8:07 AM) 20 Breaths/Min (11/27/15 6:51 PM) SPO2 [87-100 %] 100 % (11/28/15 4:00 PM) 100 % (11/28/15 8:07 AM) 97 % (11/27/15 6:51 PM) Oxygen Amount Room air (11/28/15 4:00 PM) Room air (11/28/15 8:07 AM) Glucose Level [70-99 mg/dL] 79 mg/dL (11/27/15 7:40 PM) Height [244.00 cm] 177.8 cm (11/27/15 6:51 PM) Drug Calc Weight (kg) 90.909 kg (11/27/15 6:51 PM) Weight Method Stated (11/27/15 6:51 PM) BMI 28.76 (11/27/15 6:51 PM) Problem List Condition Effective Dates Status Health Status Inform ant Bipolar 1 disorder(Confirmed) Active HIV disease(Confirmed) Active Allergies, Adverse Reactions, Alerts No Known Allergies Medications No Known Medications Results General Chemistry Most recent to oldest [Reference Range]: 1 Sodium [136-146 mmol/L] 136 mmol/L (11/27/15 7:40 PM) Potassium [3.5-5.5 mmol/L] 3.8 mmol/L (11/27/15 7:40 PM) Chloride [98-110 mmol/L] 96 mmol/L *L* (11/27/15 7:40 PM) CO2 [24-32 mmol/L] 28 mmol/L (11/27/15 7:40 PM) Anion Gap [6-17 mmol/L] 16 mmol/L (11/27/15 7:40 PM) Glucose Level [70-99 mg/dL] 79 mg/dL (11/27/15 7:40 PM) BUN [8-25 mg/dL] 16 mg/dL (11/27/15 7:40 PM) Creatinine [0.50-1.50 mg/dL] 1.15 mg/dL (11/27/15 7:40 PM) BUN/Laundromat Worker Ratio [8-24] 14 (11/27/15 7:40 PM) eGFR Non- Am 74 mL/min/1.73m2 *NA* (11/27/15 7:40 PM) eGFR Afr/Amer 90 mL/min/1.73m2 *NA* (11/27/15 7:40 PM) Calcium [8.4-10.5 mg/dL] 9.0 mg/dL (11/27/15 7:40 PM) Hematology-CBC Most recent to oldest [Reference Range]: 1 WBC [4.3-11.0 K/uL] 8.3 K/uL (11/27/15 7:40 PM) RBC [4.40-5.90 million/uL] 3.99 million/ uL *L* (11/27/15 7:40 PM) Hgb [13.5-17.5 gm/dL] 12.7 gm/dL *L* (11/27/15 7:40 PM) Hct [41.0-52.0 %] 38.6 % *L* (11/27/15 7:40 PM) MCV [80.0-100.0 fL] 96.9 fL (11/27/15 7:40 PM) MCH [25.0-35.0 pg] 31.8 pg (11/27/15 7:40 PM) MCHC [31.0-37.0 gm/dL] 32.8 gm/dL (11/27/15 7:40 PM) RDW [11.5-14.5 %] 13.3 % (11/27/15 7:40 PM) Plt [150-400 K/uL] 204 K/uL (11/27/15 7:40 PM) Therapeutic Drugs Most recent to oldest [Reference Range]: 1 Acetaminophen Level [10-30 mcg/mL] <10 m cg/mL *L* (11/27/15 7:40 PM) Salicylate Level [0-20 mg/dL] <4 mg/dL (11/27/15 7:40 PM) Toxicology Most recent to oldest [Reference Range]: 1 Ethanol [<=5 mg/dL] < 5 mg/dL *NA* (11/27/15 7:40 PM) Amphetamines Ur Negative *NA* (11/27/15 7:29 PM) Barbiturate Ur Negative *NA* (11/27/15 7:29 PM) Benzodiazepine Ur Negative *NA* (11/27/15 7:29 PM) Cocaine Ur Negative *NA* (11/27/15 7:29 PM) UMethadone Scr Negative *NA* (11/27/15 7:29 PM) Opiates Ur Negative *NA* (11/27/15 7:29 PM) PCP Scrn, Ur Negative *NA* (11/27/15 7:29 PM) THC, Ur Positive *NA* (11/27/15 7:29 PM) Tricyclic Scr, Ur Negative *NA* (11/27/15 7:29 PM) DrgScrn Method Instrument (11/27/15 7:29 PM) DrugScrn Interp URINE DRUG ABUSE SCR [...] Results are for medical purposes only. *Unknown* (11/27/15 7:29 PM) Immunizations Not Given Vaccine Date Status Refusal Reason influenza virus vaccine, inactivated 12/24/15 Not Given Patient Refuses Procedures Procedure Date Related Diagnosis Body Site None Social History Social History Type Response Tobacco Daily 10+ cigarettes , Cigarettes, Chewing tobacco Smoking Status Current every day oker Functional Status No data available for this section Assessment and Plan No data available for this section Hospital Discharge Instructions Patient Education 11/27/2015 18:44:06 Suicidal Feelings, How to Help Yourself Suicidal Feelings, How to Help Yourself Everyone feels sad or unhappy at times, but depressing thoughts and feelings of hopelessness can lead to thoughts of suicide. It can seem as if life is too tough to handle. If you feel as though you have reached the point where suicide is the only answer, it is time to let someone know immediately. HOW TO COPE AND PREVENT SUICIDE ??? Let family, friends, teachers, or counselors know. Get help. Try not to isolate yourself from those who care about you. Even though you may not feel sociable, talk with someone every day. It is best if it is xbio-aj-byto. Remember, they will want to help you. ??? Eat a regularly spaced and well-balanced diet. ??? Get plenty of rest. ??? Avoid alcohol and drugs because they will only make you feel worse and may also lower your inhibitions. Remove them from the home. If you are thinking of taking an overdose of your prescribed medicines, give your medicines to someone who can give them to you one day at a time. If you are on antidepressants, let your caregiver know of your feelings so he or she can provide a safer medicine, ifthat is a concern. ??? Remove weapons or poisons from your home. ??? Try to stick to routines. Follow a schedule and remind yourself that you have to keep that schedule every day. ??? Set some realistic goals and achieve them. Make a list and cross things off as you go. Accomplishments give a sense of worth. Wait until you are feeling better before doing things you find difficult or unpleasant to do. ??? If you are able, try to start exercising. Even half-hour periods of exercise each day will makeyou feel better. Getting out in the sun or into nature helps you recover from depression faster. Ifyou have a favorite place to walk, take advantage of that. ??? Increase safe activities that have always given you pleasure. This may include playing your favorite music, reading a good book, painting a picture, or playing your favorite instrument. Do whatever takes your mind off your depression. ??? Keep your living space well-lighted. GET HELP Contact a suicide hotline, crisis center, or local suicide prevention center for help right away. Local centers may include a hospital, clinic, community service organization, social service provider, or health department. ??? Call your local emergency services (911 in the [place]). ??? Call a suicide hotline: ? 6-601-314-TALK ( ) in the [place]. ? 0-844-CUBNQUB ( ) in the [place]. ? in the [place] for [place]-speaking counselors. ? 7-973-413-4TTY ( ) in the [place] for TTY users. ??? Visit the following websites for information and help: ? National Suicide Prevention Lifeline: www.suicidepreventionlifeline.org ? Hopeline: www.hopeline.com ? [place] [employer] for Suicide Prevention: www.afsp.org ??? For lesbian, almaraz, bisexual, transgender, or questioning youth, contact The [employer]: ? 7-283-2-U-CHRISTIE ( ) in the [place]. ? www.theStartWirevorproject.org ??? In [place], treatment resources are listed in each province with listings available under [employer] or similar titles. Another source for Crisis Centres by Province is located at http://www.suicideprevention.ca/em-eqvllz-nyt/rjgo-o-tcfytf-centre-now/crisis-ce ntres Document Released: 05/04/2004 Document Revised: 01/20/2013 Document Reviewed: 09/22/2008 ExitCare?? Patient Information ??2015 [employer]. This information is not intended to replace advice given to you by your health care provider. Make sure you discuss any questions you have with your health care provider. Follow Up Care 11/27/2015 18:44:06 With:Return to ED if symptoms worsen Address:Unknown When:Unknown Comments:development of feeling like hurting yourself With:Follow up with your usual provider Address:Unknown When:Unknown
--- OUTSIDE RECORDS SUMMARY | 2023-06-21 09:40 | XMS_ITS | Referral Summary ---
Author Name Unknown Organization [facility] Address [address] [place] [address] [place] [address]- Care Team Providers Care Glass Worker Name Role Phone PCP, Not on Staff Primary Care Physician Unavail able Encounter MRCY_SHELTON [id number] Date(s): 11/30/15 - 11/30/[address] [address]- [phone] Discharge Diagnosis: Chest pain Discharge Diagnosis: Chest pain, unspecified Discharge Disposition: Home/self care Attending Physician: Satish Apodaca MD Vital Signs Most recent to oldest [Reference Range]: 1 2 Pain Intensity 0 (11/30/15 12:26 PM) 0 (11/30/15 10:45 AM) Pain Scale Used Numeric Rating Scale (11/30/15 10:45 AM) Temperature PO [36-37.5 deg C] 36.6 deg C (11/30/15 12:26 PM) Temperature PO [36.0-37.5 deg C] 36.8 de g C (11/30/15 10:45 AM) Heart Rate [50-120 bpm] 89 bpm (11/30/15 12:26 PM) 58 bpm (11/30/15 10:45 AM) Blood Pressure [90-160/40-140 mm Hg] 131 /86mm Hg (11/30/15 12:26 PM) 114/72mm Hg (11/30/15 10:45 AM) Resp Rate (Monitor) [12-20 Breaths/Min] 18 Breaths/Min (11/30/15 12:26 PM) 18 Breaths/Min (11/30/15 10:45 AM) SPO2 [87-100 %] 100 % (11/30/15 12:26 PM) 97 % (11/30/15 10:45 AM) Glucose Level [70-99 mg/dL] 67 mg/dL *L* (11/30/15 11:00 AM) Height [244.00 cm] 177 cm (11/30/15 10:45 AM) Drug Calc Weight (kg) 90 kg (11/30/15 10:45 AM) Weight Method Stated (11/30/15 10:45 AM) BMI 28.73 (11/30/15 10:45 AM) Problem List Condition Effective Dates Status Health Status Inform ant Bipolar 1 disorder(Confirmed) Active HIV disease(Confirmed) Active Allergies, Adverse Reactions, Alerts No Known Allergies Medications No Known Medications Results Cardiac Most recent to oldest [Reference Range]: 1 Troponin I [<=30 ng/L] <20 ng/L (11/30/15 11:00 AM) General Chemistry Most recent to oldest [Reference Range]: 1 Sodium [136-146 mmol/L] 139 mmol/L (11/30/15 11:00 AM) Potassium [3.5-5.5 mmol/L] 4.7 mmol/L (11/30/15 11:00 AM) Chloride [98-110 mmol/L] 103 mmol/L (11/30/15 11:00 AM) CO2 [24-32 mmol/L] 25 mmol/L (11/30/15 11:00 AM) Anion Gap [6-17 mmol/L] 16 mmol/L (11/30/15 11:00 AM) Glucose Level [70-99 mg/dL] 67 mg/dL *L* (11/30/15 11:00 AM) BUN [8-25 mg/dL] 17 mg/dL (11/30/15 11:00 AM) Creatinine [0.50-1.50 mg/dL] 0.95 mg/dL (11/30/15 11:00 AM) BUN/Asbestos Shingle Inspector Ratio [8-24] 18 (11/30/15 11:00 AM) eGFR Non- Am 92 mL/min/1.73m2 *NA* (11/30/15 11:00 AM) eGFR Afr/Amer 112 mL/min/1.73m2 *NA* (11/30/15 11:00 AM) Calcium [8.4-10.5 mg/dL] 10.0 mg/dL (11/30/15 11:00 AM) Hematology-CBC Most recent to oldest [Reference Range]: 1 WBC [4.3-11.0 K/uL] 7.1 K/uL (11/30/15 11:00 AM) RBC [4.40-5.90 million/uL] 4.47 million/ uL (11/30/15 11:00 AM) Hgb [13.5-17.5 gm/dL] 14.3 gm/dL (11/30/15 11:00 AM) Hct [41.0-52.0 %] 44.2 % (11/30/15 11:00 AM) MCV [80.0-100.0 fL] 98.9 fL (11/30/15 11:00 AM) MCH [25.0-35.0 pg] 31.9 pg (11/30/15 11:00 AM) MCHC [31.0-37.0 gm/dL] 32.3 gm/dL (11/30/15 11:00 AM) RDW [11.5-14.5 %] 13.5 % (11/30/15 11:00 AM) Plt [150-400 K/uL] 209 K/uL (11/30/15 11:00 AM) Therapeutic Drugs Most recent to oldest [Reference Range]: 1 Acetaminophen Level [10-30 mcg/mL] <10 m cg/mL *L* (11/30/15 11:00 AM) Salicylate Level [0-20 mg/dL] 0 mg/dL *NA* (11/30/15 11:00 AM) Toxicology Most recent to oldest [Reference Range]: 1 Ethanol [<=5 mg/dL] <5 mg/dL (11/30/15 11:00 AM) Amphetamines Ur [Negative] Negative *NA* (11/30/15 10:30 AM) Barbiturate Ur [Negative] Negative *NA* (11/30/15 10:30 AM) Benzodiazepine Ur [Negative] Negative *NA* (11/30/15 10:30 AM) Cocaine Ur [Negative] Negative *NA* (11/30/15 10:30 AM) Opiates Ur [Negative] Negative *NA* (11/30/15 10:30 AM) PCP Scrn, Ur [Negative] Negative *NA* (11/30/15 10:30 AM) THC, Ur [Negative] Negative *NA* (11/30/15 10:30 AM) Tricyclic Scr, Ur [Negative] Negative *NA* (11/30/15 10:30 AM) DrgScrn Method Instrument (11/30/15 10:30 AM) DrugScrn Interp URINE DRUG ABUSE SCR EEN THRESHOLD LIMITS ARE FOLLOWS Amphetamines 1000 ng/mL Benzodiazepines 200 ng/mL Cocaine Metabolite 300 ng/mL Opiates 300 ng/mL Barbiturates 200 ng/mL Tetrahydrocannibinol (THC) 50 ng/mL Phencyclidine (PCP) 25 ng/mL Tricyclic Antidepressants 500 ng/mL NOTE: This method does not detect Methadone.?? The above assays provide only preliminary analytical results.?? If confirmation or quantification is needed, please request the specific assay(s) desired. Results are for medical purposes only. *Unknown* (11/30/15 10:30 AM) KYCAScr Raw 129 *NA* (11/30/15 10:30 AM) Immunizations Not Given Vaccine Date Status [...] this section Hospital Discharge Instructions Patient Education 11/30/2015 10:12:21 Chest Pain (Nonspecific) Chest Pain (Nonspecific) It is often hard to give a specific diagnosis for the cause of chest pain. There is always a chancethat your pain could be related to something serious, such as a heart attack or a blood clot in thelungs. You need to follow up with your health care provider for further evaluation. CAUSES ??? Heartburn. ??? Pneumonia or bronchitis. ??? Anxiety or stress. ??? Inflammation around your heart (pericarditis) or lung (pleuritis or pleurisy). ??? A blood clot in the lung. ??? A collapsed lung (pneumothorax). It can develop suddenly on its own (spontaneous pneumothorax) or from trauma to the chest. ??? Shingles infection (herpes zoster virus). The chest wall is composed of bones, muscles, and cartilage. Any of these can be the source of the pain. ??? The bones can be bruised by injury. ??? The muscles or cartilage can be strained by coughing or overwork. ??? The cartilage can be affected by inflammation and become sore (costochondritis). DIAGNOSIS Lab tests or other studies may be needed to find the cause of your pain. Your health care provider may have you take a test called an ambulatory electrocardiogram (ECG). An ECG records your heartbeatpatterns over a 24-hour period. You may also have other tests, such as: ??? Transthoracic echocardiogram (TTE). During echocardiography, sound waves are used to evaluate how blood flows through your heart. ??? Transesophageal echocardiogram (TAO). ??? Cardiac monitoring. This allows your health care provider to monitor your heart rate and rhythmin real time. ??? Holter monitor. This is a portable device that records your heartbeat and can help diagnose heart arrhythmias. It allows your health care provider to track your heart activity for several days, if needed. ??? Stress tests by exercise or by giving medicine that makes the heart beat faster. TREATMENT ??? Treatment depends on what may be causing your chest pain. Treatment may include: ? Acid blockers for heartburn. ? Anti-inflammatory medicine. ? Pain medicine for inflammatory conditions. ? Antibiotics if an infection is present. ??? You may be advised to change lifestyle habits. This includes stopping smoking and avoiding alcohol, caffeine, and chocolate. ??? You may be advised to keep your head raised (elevated) when sleeping. This reduces the chance of acid going backward from your stomach into your esophagus. Most of the time, nonspecific chest pain will improve within 2???3 days with rest and mild pain medicine. HOME CARE INSTRUCTIONS ??? If antibiotics were prescribed, take them as directed. Finish them even if you start to feel better. ??? For the next few days, avoid physical activities that bring on chest pain. Continue physical activities as directed. ??? Do not use any tobacco products, including cigarettes, chewing tobacco, or electronic cigarettes. ??? Avoid drinking alcohol. ??? Only take medicine as directed by your health care provider. ??? Follow your health care provider's suggestions for further testing if your chest pain does not go away. ??? Keep any follow-up appointments you made. If you do not go to an appointment, you could developlasting (chronic) problems with pain. If there is any problem keeping an appointment, call to reschedule. SEEK MEDICAL CARE IF: ??? Your chest pain does not go away, even after treatment. ??? You have a rash with blisters on your chest. ??? You have a fever. SEEK IMMEDIATE MEDICAL CARE IF: ??? You have increased chest pain or pain that spreads to your arm, neck, jaw, back, or abdomen. ??? You have shortness of breath. ??? You have an increasing cough, or you cough up blood. ??? You have severe back or abdominal pain. ??? You feel nauseous or vomit. ??? You have severe weakness. ??? You faint. ??? You have chills. This is an emergency. Do not wait to see if the pain will go away. Get medical help at once. Call your local emergency services (911 in [place] Do not drive yourself to the hospital. MAKE SURE YOU: ??? Understand these instructions. ??? Will watch your condition. ??? Will get help right away if you are not doing well or get worse. Document Released: 08/08/2006 Document Revised: 11/03/2014 Document Reviewed: 06/03/2009 ExitCare?? Patient Information ??2015 [employer], [employer]. This information is not intended to replace advice given to you by your health care provider. Make sure you discuss any questions you have with your health care provider. Follow Up Care 11/30/2015 10:12:21 With:Return to ED if symptoms worsen Address:Unknown When:As needed With:Follow up with your usual provider Address:Unknown When:1 to 2 days With:Call for follow up appointment Address:Unknown When:1 to 2 days
--- OUTSIDE RECORDS SUMMARY | 2023-06-21 09:40 | XMS_ITS | Referral Summary ---
Author Name Unknown Organization [facility] o [address] [phone] [place] [address]- Care Team Providers Care Lens Examiner Name Role Phone PCP, Not on Staff Primary Care Physician Unavail able Encounter MRCY_FIN [id number] Date(s): 11/10/15 - 11/15/[address] [place] [address]- [phone] Discharge Diagnosis: Suicidal ideations Discharge Diagnosis: Bipolar [...] [0.50-1.50 mg/dL] 1.17 mg/dL (11/10/15 11:32 PM) BUN/Senior Sales Operations Manager Ratio [8-24] 16 (11/10/15 11:32 PM) eGFR [...]
--- OUTSIDE RECORDS SUMMARY | 2023-06-21 09:40 | XMS_ITS | Referral Summary ---
Author Name Unknown Organization [facility] o [address] [phone] [place] [address]- Care Team Providers Care Christmas Tree Contractor Name Role Phone PCP, Not on Staff Primary Care Physician Unavail able Encounter MRCY_FIN [id number] Date(s): 11/27/15 - 11/28/[address] [place] [address]- [phone] Discharge Diagnosis: Suicidal ideations Discharge Diagnosis: Suicidal [...] [0.50-1.50 mg/dL] 1.15 mg/dL (11/27/15 7:40 PM) BUN/Drafter Tool Design Ratio [8-24] 14 (11/27/15 7:40 PM) eGFR [...] day. It is best if it is [id number]-qkrw. Remember, they will want to help you. [...] your local emergency services (911 in the [place]). ??? Call a suicide hotline: ? 2-381-902-TALK ( ) in the [place]. ? 5-962-OTFRXGS ( ) in the [place]. ? in the [place] for Malian-speaking counselors. ? 2-880-582-4TTY ( ) in the [place] for TTY users. ??? Visit the following websites for information and help: ? National Suicide Prevention Lifeline: www.suicidepreventionlifeline.org ? Hopeline: www.hopeline.com ? [place] Foundation for Suicide Prevention: www.afsp.org ??? For lesbian, almaraz, bisexual, transgender, or questioning youth, contact The [place] [employer]: ? 8-280-3-U-CHRISTIE ( ) in the [place]. ? www.theclypdvorproject.org ??? In [place], treatment resources are listed in each province with listings available under [employer] or similar titles. Another source for Crisis Centres by Province is located at http://www.suicideprevention.ca/wb-gfjusj-pld/iowx-e-ggfkcx-centre-now/crisis-ce ntres Document Released: 05/04/2004 Document Revised: 01/20/2013 Document Reviewed: 09/22/2008 ExitCare?? Patient Information ??2015 [employer], [employer]. This information is not intended to replace advice given to you by your health care provider. Make sure you discuss any questions you have with your health care provider. Follow Up Care 11/27/2015 18:44:06 With:Return to ED if symptoms worsen Address:Unknown When:Unknown Comments:development of feeling like hurting yourself With:Follow up with your usual provider Address:Unknown When:Unknown
--- OUTSIDE RECORDS SUMMARY | 2023-06-21 09:40 | XMS_ITS | Referral Summary ---
Author Name Unknown Organization [facility] Address [address] [place] [address] [place] [address]- Care Team Providers Care Counseling Program Leader Name Role Phone PCP, Not on Staff Primary Care Physician Unavail able Encounter MRCY_SHELTON [id number] Date(s): 11/30/15 - 11/30/[address] [address]- [phone] Discharge Diagnosis: Chest pain Discharge Diagnosis: Chest [...] [0.50-1.50 mg/dL] 0.95 mg/dL (11/30/15 11:00 AM) BUN/Elastic Yarn Twister Helper Ratio [8-24] 18 (11/30/15 11:00 AM) eGFR [...] medical purposes only. *Unknown* (11/30/15 10:30 AM) MTCAScr Raw 129 *NA* (11/30/15 10:30 AM) Immunizations [...] Document Reviewed: 06/03/2009 ExitCare?? Patient Information ??2015 [employer], [employer]. This information is not intended to replace [...]
--- OUTSIDE RECORDS SUMMARY | 2023-06-21 09:40 | XMS_ITS | Referral Summary ---
Author Name Unknown Organization [facility] o [address] [phone] [place] [address]- Care Team Providers Care Ticket Taker Ferryboat Name Role Phone PCP, Not on Staff Primary Care Physician Unavail able Encounter MRCY_FIN [id number] Date(s): 11/29/15 - 11/29/[address] [place] [address]- [phone] Discharge Diagnosis: Bipolar disorder, current episode depressed, [...] serious side effect. FOR MORE INFORMATION National [place] on Mental Illness: www.dominic.org?? National [place] of Mental Health: www.[facility].nih.gov?? Document Released: 10/26/2001 Document Revised: 04/29/2013 Document Reviewed: 01/27/2013 ExitCare?? Patient Information ??2015 [employer]. This information is not intended to replace [...] Pain, with loss of movement. ??? Weakened tooler between your thumb and your index finger. [...] as directed by your caregiver. ??? Take grti-usi-daxybjz or prescription medicine for pain as your [...] Document Reviewed: 03/28/2012 ExitCare?? Patient Information ??2015 [employer]. This information is not intended to replace advice given to you by your health care provider. Make sure you discuss any questions you have with your health care provider. Follow Up Care 11/29/2015 00:37:20 [facility] Address:Unknown When:Unknown Comments:Please follow up at [facility] for your psychiatric care, and have someone check your medicines to see what you are really supposed to be on . I have written you these prescriptions, but you need to verify your medicines and doses. Take hte ibuprofen for your hand pain, and [facility], Dr Dhillon about your thumb With:Matt Dhillon Address: [address] [place] [address] [address] [place] [address] [phone] Business (1) When:2 to 4 days
--- OUTSIDE RECORDS SUMMARY | 2023-06-21 09:41 | XMS_ITS | Continuity of Care Document ---
Author Name [email or web address] [facility] Care Team Providers Care [employer] Psychology Professor Name Role Phone [facility] Unavailable Unavailable Problems Problem Status Onset Date Classification Date Reported Comments Source Bipolar I disorder (disorder) Active 05/08/2016 [facility] Human immunodeficiency virus infection (disorder) Active 05/08/2016 [facility] Discharge Diagnosis: Bipolar disorder, unspecified 05/08/2016 [facility] Discharge Diagnosis: Patient's noncompliance with other medical treatment and regimen 02/06/2016 [facility] Discharge Diagnosis: Bipolar disorder, current episode depressed, mild or moderate severity, unspecified 04/22/2016 [facility] Discharge Diagnosis: Pain in right hand 04/22/2016 [facility] Discharge Diagnosis: Chest pain 04/22/2016 [facility] Discharge Diagnosis: Suicidal ideations 05/08/2016 [facility] Discharge Diagnosis: Marijuana abuse 04/22/2016 [facility] Discharge Diagnosis: Tobacco use 05/08/2016 [facility] Medications Medication Details Route Status Patient Instructions Ordering Provider Order Date Source No Known Medications No known medications Active 016 [facility] No Known Medications No known medications Active 016 [facility] No Known Medications No known medications Active 016 [facility] No Known Medications No known medications Active 016 [facility] No Known Medications No known medications Active 015 [facility] Immunizations Immunization Date Given Site Status Last Updated Comments So urce influenza virus vaccine, inactivated 12/24/2015 Not Given [facility] Results Order Name Results Value Reference Range Date Interpretation Comments Source [facility]rug[facility] Amphetamines Ur Negative^C X7NEG 01/25 [facility]rug[facility] Barbiturate Ur Negative^C X7NEG 01/25 [facility] UADrugScrn Benzodiazepi ne Ur Negative^C X7NEG 01/25 [facility] UADrugScrn Cocaine Ur Negative^C X7NEG 01/25 [facility] UADrugScrn UMethadone Scr Negative^C X7NEG 01/25 [facility] UADrug[facility] Opiates Ur Negative^C X7NEG 01/25 [facility] UADrug[facility]rn PCP Scrn, Ur Negative^C X7NEG 01/25 [facility] UADrug[facility]rn THC, Ur Negative^C X7NEG 01/25 [facility] UADrugScrn Tricyclic Scr, Ur Negative^C X7NEG [facility]/25 [facility] ^Instrumen t 01/25 [facility] Interp URINE DRUG ABUSE SCREEN THRESHOLD LIMITS ARE FOLLOWS ------ Amphetamin es 1000 ng/mL Benzodiaze pines 200 ng/mL Cocaine Metabolite 300 ng/mL Opiates 300 ng/mL Barbiturat es 200 ng/mL Tetrahydro cannibinol (THC) 50 ng/mL Phencyclid ine (PCP) 25 ng/mL Tricyclic Antidepres sants 500 ng/mL Methadone 300 ng/mL NOTE: The above assays provide only preliminar y analytical results. If confirmati on or quantifica tion is needed, please request the specific assay(s) desired. Results are for medical purposes only. 01/25 [facility] Acetaminop hen Level Acetaminophe n Level <10 10 - 30 01/25 L Acetaminophen Ranges: Therapeutic: 10 - 30 mcg/mL Toxic 4 hr Post OD: > 150 mcg/mL Toxic 12 hr Post OD: > 50 mcg/mL To interpret levels after an overdose, the time of ingestion must be known. Serum half-life is the best predictor of the extent of possible hepatic injury. [facility] Sodium 134 136 - 146 01/25 L [facility] Potassium 3.6 3.5 - 5.5 01/25 [facility] Chloride 100 98 - 110 01/25 [facility] CMP CO2 26 24 - 32 01/25 [facility] Glucose Level 92 70 - 99 01/25 [facility] BUN 18 8 - 25 01/25 [facility] Creatinine 0.97 0.50 - 1.50 01/25 [facility] BUN/Library Consultant Ratio 19 8 - 24 01/25 [facility] Anion Gap 12 6 - 17 01/25 The reported anion gap uses the calculation of (Na + K)-(Cl +CO2). [facility] CMP Calcium 9.2 8.4 - 10.5 01/25 [facility] Corrected Calcium 9.0 8.4 - 10.5 01/25 [facility] Protein, Total 7.5 6.0 - 8.0 01/25 [facility] Albumin 4.2 3.0 - 5.0 01/25 [facility] CMP Alkphos 61 35 - 130 01/25 [facility] CMP ALT 24 0 - 45 01/25 [facility] CMP AST 29 0 - 40 01/25 [facility] CMP Bili Total 1.3 0.2 - 1.2 01/25 H [facility] CMP eGFR Non- Am 90 01/25 [facility] CMP eGFR Afr/Amer 109 01/25 Normal Reference: Greater than 60 mL/min/1.73m2 Chronic Kidney Disease Staging: The National Kidney Foundation criteria requires documentation of the GFR on two occasions at least 90 days apart. Stage 1 and 2 definitions REQUIRE correlations WITH the presence of Abnormal Urinalysis Sediment and/or Abnormal Radiographic findings. Stages are NOT defined by the GFR alone Stage 1: Kidney damage with normal or high GFR of 90 or greater Stage 2: Kidney damage with mild decrease in GFR of 60-89 Stage 3: Kidney damage with moderate decrease in GFR 30-59 Stage 4: Kidney damage with severe decrease in GFR 15-29 Stage 5: Kidney damage with GFR Less than 15 or on dialysis [facility] Ethanol Ethanol <5 <=5 01/25 Blood Alcohol (Ethanol) Conversion Information: Multiply mg/dL X 0.001 to convert to G/L Examples: 100 mg/dL X 0.001 = 0.10 G/L 80 mg/dL X 0.001 = 0.08 G/L Note: [place] Legal Limit = 0.08 G/L [facility] Salicylate Salicylate Level <4 0 - 20 01/25 ANALGESIC.... ........ 5.0 - 10.0 mg/dL ANTI-INFLAMMA TORY.... 20.0 - 30.0 mg/dL Levels above 30 may be toxic [facility] CBC w/Diff WBC 8.7 4.3 - 11.0 01/25 [facility] CBC w/Diff RBC 4.08 4.40 - 5.90 01/25 [facility] CBC w/Diff Hgb 12.8 13.5 - 17.5 01/25 [facility] CBC w/Diff Hct 38.7 41.0 - 52.0 01/25 [facility] CBC w/Diff MCV 94.8 80.0 - 100.0 01/25 [facility] CBC w/Diff MCH 31.4 25.0 - 35.0 01/25 [facility] CBC w/Diff MCHC 33.2 31.0 - 37.0 01/25 [facility] CBC w/Diff RDW 12.0 11.5 - 14.5 01/25 [facility] CBC w/Diff Plt 250 150 - 400 01/25 [facility] CBC w/Diff Neuts 57 36 - 76 01/25 [facility] CBC w/Diff Lymphs 32 20 - 45 01/25 [facility] CBC w/Diff Monos. 9 3 - 12 01/25 [facility] CBC w/Diff Eos. 1 0 - 5 01/25 [facility] CBC w/Diff Baso. 1 0 - 1 01/25 [facility] CBC w/Diff ABS Neut 4.9 1.3 - 7.4 01/25 [facility] CBC w/Diff ABS Lymph 2.8 0.7 - 3.1 01/25 [facility] CBC w/Diff ABS [place] 0.8 0.2 - 0.9 01/25 [facility] CBC w/Diff ABS Eos 0.1 0.0 - 0.4 01/25 [facility] CBC w/Diff ABS Baso 0.1 0.0 - 0.1 01/25 [facility] CBC w/Diff CBC Scan Auto Diff^Auto Diff 01/25 [facility] Sodium 140 136 - 146 01/16 [facility] Potassium 4.0 3.5 - 5.5 01/16 [facility] Chloride 103 98 - 110 01/16 [facility] CO2 31 24 - 32 01/16 [facility] Glucose Level 86 70 - 99 01/16 [facility] BUN 19 8 - 25 01/16 [facility] Creatinine 0.98 0.50 - 1.50 01/16 [facility] BUN/Library Consultant Ratio 19 8 - 24 01/16 [facility] Anion Gap 10 6 - 17 01/16 The reported anion gap uses the calculation of (Na + K)-(Cl +CO2). [facility] Calcium 9.2 8.4 - 10.5 01/16 [facility] Corrected Calcium 8.8 8.4 - 10.5 01/16 [facility] Protein, Total 7.6 6.0 - 8.0 01/16 [facility] Albumin 4.5 3.0 - 5.0 01/16 [facility] Alkphos 68 35 - 130 01/16 [facility] ALT 34 0 - 45 01/16 [facility] AST 30 0 - 40 01/16 [facility] Bili Total 0.8 0.2 - 1.2 01/16 [facility] eGFR Non- Am 89 01/16 [facility] eGFR Afr/Amer 108 01/16 Normal Reference: Greater than 60 mL/min/1.73m2 Chronic Kidney Disease Staging: The National Kidney Foundation criteria requires documentation of the GFR on two occasions at least 90 days apart. Stage 1 and 2 definitions REQUIRE correlations WITH the presence of Abnormal Urinalysis Sediment and/or Abnormal Radiographic findings. Stages are NOT defined by the GFR alone Stage 1: Kidney damage with normal or high GFR of 90 or greater Stage 2: Kidney damage with mild decrease in GFR of 60-89 Stage 3: Kidney damage with moderate decrease in GFR 30-59 Stage 4: Kidney damage with severe decrease in GFR 15-29 Stage 5: Kidney damage with GFR Less than 15 or on dialysis [facility] Salicylate Salicylate Level <4 0 - 20 01/16 ANALGESIC.... ........ 5.0 - 10.0 mg/dL ANTI-INFLAMMA TORY.... 20.0 - 30.0 mg/dL Levels above 30 may be toxic [facility] Acetaminop hen Level Acetaminophe n Level <10 10 - 30 01/16 L Acetaminophen Ranges: Therapeutic: 10 - 30 mcg/mL Toxic 4 hr Post OD: > 150 mcg/mL Toxic 12 hr Post OD: > 50 mcg/mL To interpret levels after an overdose, the time of ingestion must be known. Serum half-life is the best predictor of the extent of possible hepatic injury. [facility] Ethanol Ethanol <5 <=5 01/16 Blood Alcohol (Ethanol) Conversion Information: Multiply mg/dL X 0.001 to convert to G/L Examples: 100 mg/dL X 0.001 = 0.10 G/L 80 mg/dL X 0.001 = 0.08 G/L Note: [place] Legal Limit = 0.08 G/L [facility] CBC w/Diff WBC 5.9 4.3 - 11.0 01/16 [facility] CBC w/Diff RBC 4.10 4.40 - 5.90 01/16 [facility] CBC w/Diff Hgb 13.1 13.5 - 17.5 01/16 [facility] CBC w/Diff Hct 39.5 41.0 - 52.0 01/16 [facility] CBC w/Diff MCV 96.5 80.0 - 100.0 01/16 [facility] CBC w/Diff MCH 32.1 25.0 - 35.0 01/16 [facility] CBC w/Diff MCHC 33.2 31.0 - 37.0 01/16 [facility] CBC w/Diff RDW 12.5 11.5 - 14.5 01/16 [facility] CBC w/Diff Plt 223 150 - 400 01/16 [facility] CBC w/Diff Neuts 65 36 - 76 01/16 [facility] CBC w/Diff Lymphs 24 20 - 45 01/16 [facility] CBC w/Diff Monos. 9 3 - 12 01/16 [facility] CBC w/Diff Eos. 1 0 - 5 01/16 [facility] CBC w/Diff Baso. 1 0 - 1 01/16 [facility] CBC w/Diff ABS Neut 3.9 1.3 - 7.4 01/16 [facility] CBC w/Diff ABS Lymph 1.4 0.7 - 3.1 01/16 [facility] CBC w/Diff ABS [place] 0.5 0.2 - 0.9 01/16 [facility] CBC w/Diff ABS Eos 0.1 0.0 - 0.4 01/16 [facility] CBC w/Diff ABS Baso 0.1 0.0 - 0.1 01/16 [facility] CBC w/Diff CBC Scan Auto Diff^Auto Diff 01/16 [facility] UADrugScrn Amphetamines Ur Negative^C X7NEG Negative 01/16 [facility] UADrugScrn Barbiturate Ur Negative^C X7NEG Negative 01/16 [facility] UADrugScrn Benzodiazepi ne Ur Negative^C X7NEG Negative 01/16 [facility] UADrugScrn Cocaine Ur Negative^C X7NEG Negative [facility]^C X7NEG Negative [facility] Negative^C X7NEG Negative [facility]/16 [facility] P[facility], Ur Negative^C X7NEG Negative [facility]/16 [facility] THC, Ur Negative^C X7NEG Negative 01/16 [facility] Tricyclic Scr, Ur Negative^C X7NEG 01/16 [facility] Drg[facility] Method Instrument ^Instrumen t 01/16 [facility] DrugScrn Interp URINE DRUG ABUSE SCREEN THRESHOLD LIMITS ARE FOLLOWS ------ Amphetamin es 1000 ng/mL Benzodiaze pines 200 ng/mL Cocaine Metabolite 300 ng/mL Methadone 300 ng/mL Opiates 300 ng/mL Barbiturat es 200 ng/mL Tetrahydro cannibinol (THC) 50 ng/mL Phencyclid ine (PCP) 25 ng/mL Tricyclic Antidepres sants 500 ng/mL NOTE: The above assays provide only preliminar y analytical results. If confirmati on or quantifica tion is needed, please request the specific assay(s) desired. Results are for medical purposes only. 01/16 [facility] Acetamino hen Level Acetaminophe n Level <10 10 - 30 01/16 L Acetaminophen Ranges: Therapeutic: 10 - 30 mcg/mL Toxic 4 hr Post OD: > 150 mcg/mL Toxic 12 hr Post OD: > 50 mcg/mL To interpret levels after an overdose, the time of ingestion must be known. Serum half-life is the best predictor of the extent of possible hepatic injury. [facility] CMP Sodium 136 136 - 146 01/16 [facility] CMP Potassium 3.7 3.5 - 5.5 01/16 [facility] CMP Chloride 99 98 - 110 01/16 [facility] CMP CO2 28 24 - 32 01/16 [facility] CMP Glucose Level 87 70 - 99 01/16 [facility] CMP BUN 19 8 - 25 01/16 [facility] CMP Creatinine 1.01 0.50 - 1.50 01/16 [facility] CMP BUN/Library Consultant Ratio 19 8 - 24 01/16 [facility] CMP Anion Gap 13 6 - 17 01/16 The reported anion gap uses the calculation of (Na + K)-(Cl +CO2). [facility] CMP Calcium 9.2 8.4 - 10.5 01/16 [facility] Corrected Calcium 9.0 8.4 - 10.5 01/16 [facility] CMP Protein, Total 7.7 6.0 - 8.0 01/16 [facility] CMP Albumin 4.3 3.0 - 5.0 01/16 [facility] CMP Alkphos 78 35 - 130 01/16 [facility] CMP ALT 37 0 - 45 01/16 [facility] CMP AST 27 0 - 40 01/16 [facility] CMP Bili Total 0.6 0.2 - 1.2 01/16 [facility] CMP eGFR Non- Am 86 01/16 [facility] CMP eGFR Afr/Amer 104 01/16 Normal Reference: Greater than 60 mL/min/1.73m2 Chronic Kidney Disease Staging: The National Kidney Foundation criteria requires documentation of the GFR on two occasions at least 90 days apart. Stage 1 and 2 definitions REQUIRE correlations WITH the presence of Abnormal Urinalysis Sediment and/or Abnormal Radiographic findings. Stages are NOT defined by the GFR alone Stage 1: Kidney damage with normal or high GFR of 90 or greater Stage 2: Kidney damage with mild decrease in GFR of 60-89 Stage 3: Kidney damage with moderate decrease in GFR 30-59 Stage 4: Kidney damage with severe decrease in GFR 15-29 Stage 5: Kidney damage with GFR Less than 15 or on dialysis [facility] Ethanol Ethanol 140 <=5 01/16 H Blood Alcohol (Ethanol) Conversion Information: Multiply mg/dL X 0.001 to convert to G/L Examples: 100 mg/dL X 0.001 = 0.10 G/L 80 mg/dL X 0.001 = 0.08 G/L Note: [place] Limit = 0.08 G/L [facility] Salicylate Salicylate Level <4 0 - 20 01/16 ANALGESIC.... ........ 5.0 - 10.0 mg/dL ANTI-INFLAMMA TORY.... 20.0 - 30.0 mg/dL Levels above 30 may be toxic [facility] Hemogram WBC 6.2 4.3 - 11.0 01/16 [facility] Hemogram RBC 4.03 4.40 - 5.90 01/16 L [facility] Hemogram Hgb 12.8 13.5 - 17.5 01/16 [facility] Hemogram Hct 39.2 41.0 - 52.0 01/16 [facility] Hemogram MCV 97.2 80.0 - 100.0 01/16 [facility] Hemogram MCH 31.6 25.0 - 35.0 01/16 [facility] Hemogram MCHC 32.5 31.0 - 37.0 01/16 [facility] Hemogram RDW 12.2 11.5 - 14.5 01/16 [facility] Hemogram Plt 215 150 - 400 01/16 [facility] UADrugScrn Amphetamines Ur Positive^C X7POS 01/16 [facility] Barbiturate Ur Negative^C X7NEG 01/16 [facility] UADrugScrn Benzodiazepi ne Ur Negative^C X7NEG 01/16 [facility] UADrugScrn Cocaine Ur Negative^C X7NEG 01/16 [facility] UADrugScrn UMethadone Scr Negative^C X7NEG 01/16 [facility] UADrugScrn Opiates Ur Negative^C X7NEG 01/16 [facility] UADrugScrn PCP Scrn, Ur Negative^C X7NEG 01/16 [facility] UADrugScrn THC, Ur Negative^C X7NEG 01/16 [facility] UADrugScrn Tricyclic Scr, Ur Negative^C X7NEG 01/16 . [facility] UADrugScrn DrgScrn Method Instrument ^Instrumen t 01/16 [facility] UADrugScrn DrugScrn Interp URINE DRUG ABUSE SCREEN THRESHOLD LIMITS ARE FOLLOWS ------ Amphetamin es 1000 ng/mL Benzodiaze pines 200 ng/mL Cocaine Metabolite 300 ng/mL Opiates 300 ng/mL Barbiturat es 200 ng/mL Tetrahydro cannibinol (THC) 50 ng/mL Phencyclid ine (PCP) 25 ng/mL Tricyclic Antidepres sants 500 ng/mL Methadone 300 ng/mL NOTE: The above assays provide only preliminar y analytical results. If confirmati on or quantifica tion is needed, please request the specific assay(s) desired. Results are for medical purposes only. 01/16 [facility] [id number] .TSH 3rd Gen 0.6906 0.35 - 4.94 12/23 Test performed at: [facility] [employer] [facility] A member of [address] # [id number] Coagulation Operator: Duy Stone M.D. [facility] CMP Sodium 140 136 - 146 12/22 [facility] CMP Potassium 4.1 3.5 - 5.5 12/22 [facility] CMP Chloride 101 98 - 116 12/22 [facility] CMP CO2 31 24 - 32 12/22 [facility] CMP Glucose Level 94 70 - 99 12/22 [facility] CMP BUN 12 8 - 25 12/22 [facility] CMP Creatinine 1.03 0.50 - 1.50 12/22 [facility] CMP BUN/Library Consultant Ratio 12 8 - 24 12/22 [facility] CMP Anion Gap 12 6 - 17 12/22 The reported anion gap uses the calculation of (Na + K)-(Cl +CO2). [facility] CMP Calcium 9.2 8.4 - 10.5 12/22 [facility] CMP Corrected Calcium 9.5 8.4 - 10.5 12/22 [facility] CMP Protein, Total 6.0 6.0 - 8.0 12/22 [facility] CMP Albumin 3.6 3.0 - 5.0 12/22 [facility] CMP Alkphos 64 35 - 130 12/22 [facility] CMP ALT 25 0 - 45 12/22 [facility] CMP AST 23 0 - 40 12/22 [facility] CMP Bili Total 0.8 0.2 - 1.2 12/22 [facility] CMP eGFR Non- Am 84 12/22 [facility] CMP eGFR Afr/Amer 101 12/22 Normal Reference: Greater than 60 mL/min/1.73m2 Chronic Kidney Disease Staging: The National Kidney Foundation criteria requires documentation of the GFR on two occasions at least 90 days apart. Stage 1 and 2 definitions REQUIRE correlations WITH the presence of Abnormal Urinalysis Sediment and/or Abnormal Radiographic findings. Stages are NOT defined by the GFR alone Stage 1: Kidney damage with normal or high GFR of 90 or greater Stage 2: Kidney damage with mild decrease in GFR of 60-89 Stage 3: Kidney damage with moderate decrease in GFR 30-59 Stage 4: Kidney damage with severe decrease in GFR 15-29 Stage 5: Kidney damage with GFR Less than 15 or on dialysis [facility] CBC w/Diff WBC 5.0 4.3 - 11.0 12/22 [facility] CBC w/Diff RBC 3.92 4.40 - 5.90 12/22 [facility] CBC w/Diff Hgb 13.0 13.5 - 17.5 12/22 [facility] CBC w/Diff Hct 37.5 41.0 - 52.0 12/22 [facility] CBC w/Diff MCV 95.5 80.0 - 100.0 12/22 [facility] CBC w/Diff MCH 33.0 25.0 - 35.0 12/22 [facility] CBC w/Diff MCHC 34.6 31.0 - 37.0 12/22 [facility] CBC w/Diff RDW 12.3 11.5 - 14.5 12/22 [facility] CBC w/Diff Plt 228 150 - 400 12/22 [facility] CBC w/Diff Neuts 60 36 - 76 12/22 [facility] CBC w/Diff Lymphs 29 20 - 45 12/22 [facility] CBC w/Diff Monos. 8 3 - 12 12/22 [facility] CBC w/Diff Eos. 2 0 - 5 12/22 [facility] CBC w/Diff Baso. 1 0 - 1 12/22 [facility] CBC w/Diff ABS Neut 3.1 1.3 - 7.4 12/22 [facility] CBC w/Diff ABS Lymph 1.4 0.7 - 3.1 12/22 [facility] CBC w/Diff ABS [place] 0.4 0.2 - 0.9 12/22 [facility] CBC w/Diff ABS Eos 0.1 0.0 - 0.4 12/22 [facility] CBC w/Diff ABS Baso 0.0 0.0 - 0.1 12/22 [facility] CBC w/Diff CBC Scan Auto Diff^Auto Diff 12/22 [facility] UA CIF Appearance Clear^COTY R Clear 12/21 [facility] CIF Color Yellow^YEL LOW Yellow 12/21 [facility] CIF Specific [place] 1.015 1.005 - 1.035 12/21 [facility] CIF UpH 7.0^7.0 5.0 - 7.0 12/21 [facility] CIF UBlood Negative^N EGATIVE Negative 12/21 [facility] CIF UBilirubin Negative^N EGATIVE Negative 12/21 [facility] CIF UGlucose Negative^N EGATIVE Negative 12/21 [facility] CIF UKetones Negative^N EGATIVE Negative 12/21 [facility] CIF ULeukocyte Esterase Negative^N EGATIVE Negative 12/21 [facility] CIF UNitrite Negative^N EGATIVE Negative 12/21 [facility] CIF UProtein Negative^N EGATIVE Negative 12/21 [facility] UA CIF UA Urobilinogen 0.2^0.2 0.2 - 1.0 12/21 [facility] UA CIF UCIF Yes/No No^No 12/21 [facility] Urinalysis UBlood Negative *NA* (12/21/15 1:45 PM) Negative 12/21 [facility] Urinalysis UpH 7.0 (12/21/15 1:45 PM) 5.0 - 7.0 12/21 [facility] Urinalysis ULeukocyte Esterase Negative *NA* (12/21/15 1:45 PM) Negative 12/21 [facility] Urinalysis UCIF Yes/No No (12/21/15 1:45 PM) 12/21 [facility] Urinalysis UProtein Negative *NA* (12/21/15 1:45 PM) Negative 12/21 [facility] Urinalysis UNitrite Negative *NA* (12/21/15 1:45 PM) Negative 12/21 [facility] Urinalysis Specific [place] 1.015 1.005 - 1.035 12/21 [facility] Urinalysis UKetones Negative (12/21/15 1:45 PM) Negative 12/21 [facility] Urinalysis UA Urobilinogen 0.2 EU/dL 0.2 - 1.0 12/21 [facility] Urinalysis UBilirubin Negative *NA* (12/21/15 1:45 PM) Negative 12/21 [facility] Urinalysis UGlucose Negative *NA* (12/21/15 1:45 PM) Negative 12/21 [facility] Urinalysis Appearance Clear (12/21/15 1:45 PM) Clear 12/21 [facility] Urinalysis Color Yellow (12/21/15 1:45 PM) Yellow 12/21 [facility] [facility] UADrugScrn Amphetamines Ur Negative^C X7NEG 12/21 [facility] UADrugScrn Barbiturate Ur Negative^C X7NEG 12/21 [facility] UADrugScrn Benzodiazepi ne Ur Negative^C X7NEG 12/21 [facility] UADrugScrn Cocaine Ur Negative^C [facility]7NEG 12/[facility]^C X7NEG 12/21 [facility] UADrugScrn Opiates Ur Negative^C X7NEG 12/[facility], Ur Negative^C X7NEG 12/21 [facility] UADrugScrn THC, Ur Negative^C X7NEG 12/21 [facility] UADrugScrn Tricyclic Scr, Ur Negative^C X7NEG 12/21 [facility] ^Instrumen t 12/21 [facility] Interp URINE DRUG ABUSE SCREEN THRESHOLD LIMITS ARE FOLLOWS ------ Amphetamin es 1000 ng/mL Benzodiaze pines 200 ng/mL Cocaine Metabolite 300 ng/mL Opiates 300 ng/mL Barbiturat es 200 ng/mL Tetrahydro cannibinol (THC) 50 ng/mL Phencyclid ine (PCP) 25 ng/mL Tricyclic Antidepres sants 500 ng/mL Methadone 300 ng/mL NOTE: The above assays provide only preliminar y analytical results. If confirmati on or quantifica tion is needed, please request the specific assay(s) desired. Results are for medical purposes only. 12/21 [facility] Toxicology Tricyclic Scr, Ur Negative *NA* (12/21/15 1:40 AM) 12/21 [facility] Toxicology DrgScrn Method Instrument (12/21/15 1:40 AM) 12/21 [facility] Toxicology Amphetamines Ur Negative *NA* (12/21/15 1:40 AM) 12/21 [facility] Toxicology Barbiturate Ur Negative *NA* (12/21/15 1:40 AM) 12/21 [facility] Toxicology Benzodiazepi ne Ur Negative *NA* (12/21/15 1:40 AM) 12/21 [facility] Toxicology Cocaine Ur Negative *NA* (12/21/15 1:40 AM) 12/21 [facility] Toxicology THC, Ur Negative *NA* (12/21/15 1:40 AM) 12/21 [facility] Toxicology Opiates Ur Negative *NA* (12/21/15 1:40 AM) 12/21 [facility] Toxicology UMethadone Scr Negative *NA* (12/21/15 1:40 AM) 12/21 [facility] Toxicology PCP Scrn, Ur Negative *NA* (12/21/15 1:40 AM) 12/21 [facility] Toxicology DrugScrn Interp URINE DRUG ABUSE SCREEN THRESHOLD LIMITS ARE FOLLOWS ------ Amphetamin es 1000 ng/mL Benzodiaze pines 200 ng/mL Cocaine Metabolite 300 ng/mL Opiates 300 ng/mL Barbiturat es 200 ng/mL Tetrahydro cannibinol (THC) 50 ng/mL Phencyclid ine (PCP) 25 ng/mL Tricyclic Antidepres sants 500 ng/mL Methadone 300 ng/mL NOTE: The above assays provide only preliminar y analytical results. If confirmati on or quantifica tion is needed, please request the specific assay(s) desired. Results are for medical purposes only. 12/21 [facility] Acetaminop hen Level Acetaminophe n Level <10 10 - 30 12/21 L Acetaminophen Ranges: Therapeutic: 10 - 30 mcg/mL Toxic 4 hr Post OD: > 150 mcg/mL Toxic 12 hr Post OD: > 50 mcg/mL To interpret levels after an overdose, the time of ingestion must be known. Serum half-life is the best predictor of the extent of possible hepatic injury. [facility] Salicylate Salicylate Level <4 0 - 20 12/21 ANALGESIC.... ........ 5.0 - 10.0 mg/dL ANTI-INFLAMMA TORY.... 20.0 - 30.0 mg/dL Levels above 30 may be toxic [facility] Ethanol Ethanol 81 <=5 12/21 H Blood Alcohol (Ethanol) Conversion Information: Multiply mg/dL X 0.001 to convert to G/L Examples: 100 mg/dL X 0.001 = 0.10 G/L 80 mg/dL X 0.001 = 0.08 G/L Note: [place] Legal Limit = 0.08 G/L [facility] BASIC Sodium 140 136 - 146 12/21 [facility] BASIC Potassium 4.4 3.5 - 5.5 12/21 [facility] BASIC Chloride 103 98 - 110 12/21 [facility] BASIC CO2 30 24 - 32 12/21 [facility] BASIC Glucose Level 94 70 - 99 12/21 [facility] BASIC BUN 14 8 - 25 12/21 [facility] BASIC Creatinine 1.10 0.50 - 1.50 12/21 [facility] BASIC BUN/Library Consultant Ratio 13 8 - 24 12/21 [facility] BASIC Calcium 9.4 8.4 - 10.5 12/21 [facility] BASIC Anion Gap 11 6 - 17 12/21 The reported anion gap uses the calculation of (Na + K)-(Cl +CO2). [facility] BASIC eGFR Non- Am 78 12/21 [facility] BASIC eGFR Afr/Amer 94 12/21 Normal Reference: Greater than 60 mL/min/1.73m2 Chronic Kidney Disease Staging: The National Kidney Foundation criteria requires documentation of the GFR on two occasions at least 90 days apart. Stage 1 and 2 definitions REQUIRE correlations WITH the presence of Abnormal Urinalysis Sediment and/or Abnormal Radiographic findings. Stages are NOT defined by the GFR alone Stage 1: Kidney damage with normal or high GFR of 90 or greater Stage 2: Kidney damage with mild decrease in GFR of 60-89 Stage 3: Kidney damage with moderate decrease in GFR 30-59 Stage 4: Kidney damage with severe decrease in GFR 15-29 Stage 5: Kidney damage with GFR Less than 15 or on dialysis [facility] Hemogram WBC 6.4 4.3 - 11.0 12/21 [facility] Hemogram RBC 4.34 4.40 - 5.90 12/21 L [facility] Hemogram Hgb 13.7 13.5 - 17.5 12/21 [facility] Hemogram Hct 42.2 41.0 - 52.0 12/21 [facility] Hemogram MCV 97.4 80.0 - 100.0 12/21 [facility] Hemogram MCH 31.7 25.0 - 35.0 12/21 [facility] Hemogram MCHC 32.5 31.0 - 37.0 12/21 [facility] Hemogram RDW 12.8 11.5 - 14.5 12/21 [facility] Hemogram Plt 237 150 - 400 12/21 [facility] General Chemistry CO2 30 24 - 32 12/21 [facility] General Chemistry Chloride 103 98 - 110 12/21 [facility] Chemistry BUN 14 8 - 25 12/21 [facility] Chemistry eGFR Afr/Amer 94 12/21 [facility] Chemistry eGFR Non- Am 78 12/21 [facility] Chemistry Creatinine 1.10 0.50 - 1.50 12/21 [facility] BUN/Library Consultant Ratio 13 8 - 24 12/21 [facility] General Chemistry Anion Gap 11 6 - 17 12/21 [facility] General Chemistry Calcium 9.4 8.4 - 10.5 12/21 [facility] General Chemistry Potassium 4.4 3.5 - 5.5 12/21 [facility] General Chemistry Sodium 140 136 - 146 12/21 [facility] Glucose Level 94 70 - 99 12/21 [facility] Hematology -CBC Plt 237 150 - 400 12/21 [facility] Hematology -CBC RDW 12.8 11.5 - 14.5 12/21 [facility] Hematology -CBC MCHC 32.5 31.0 - 37.0 12/21 [facility] Hematology -CBC MCH 31.7 25.0 - 35.0 12/21 [facility] Hematology -CBC WBC 6.4 4.3 - 11.0 12/21 [facility] Hematology -CBC Hgb 13.7 13.5 - 17.5 12/21 [facility] Hematology -CBC RBC 4.34 4.40 - 5.90 12/21 [facility] Hematology -CBC MCV 97.4 80.0 - 100.0 12/21 [facility] Hematology -CBC Hct 42.2 41.0 - 52.0 12/21 [facility] Salicylate Level <4 0 - 20 12/21 [facility] c Drugs Acetaminophe n Level <10 10 - 30 12/21 [facility] Toxicology Ethanol 81 <=5 mg/dL 12/21 [facility] Troponin I Troponin I <20 <=30 11/30 The laboratory has changed to using a high sensitivity Troponin I assay. The results are now reported as whole numbers in ng/L. The new reference range is 0-30 ng/L, and is set at the 99th percentile of values in a normal (non cardiac) population. The 2012 [place] Definition of Myocardial Infarction recommends a cutoff value of 30 ng/L for the diagnosis of [place]. In the appropriate clinical context, the level of troponin alone is not diagnostic of [place]. Serial assays are recommended, and must be correlated with the clinical and EKG findings. [facility] Acetaminop hen Level Acetaminophe n Level <10 10 - 30 11/30 L Acetaminophen Ranges: Therapeutic: 10 - 30 mcg/mL Toxic 4 hr Post OD: > 150 mcg/mL Toxic 12 hr Post OD: > 50 mcg/mL To interpret levels after an overdose, the time of ingestion must be known. Serum half-life is the best predictor of the extent of possible hepatic injury. [facility] Salicylate Salicylate Level 0 0 - 20 11/30 ANALGESIC.... ........ 5.0 - 10.0 mg/dL ANTI-INFLAMMA TORY.... 20.0 - 30.0 mg/dL Levels above 30 may be toxic [facility] BASIC Sodium 139 136 - 146 11/30 [facility] BASIC Potassium 4.7 3.5 - 5.5 11/30 [facility] BASIC Chloride 103 98 - 110 11/30 [facility] BASIC CO2 25 24 - 32 11/30 [facility] BASIC Glucose Level 67 70 - 99 11/30 L [facility] BASIC BUN 17 8 - 25 11/30 [facility] BASIC Creatinine 0.95 0.50 - 1.50 11/30 [facility] BASIC BUN/Library Consultant Ratio 18 8 - 24 11/30 [facility] BASIC Calcium 10.0 8.4 - 10.5 11/30 [facility] BASIC Anion Gap 16 6 - 17 11/30 The reported anion gap uses the calculation of (Na + K)-(Cl +CO2). [facility] BASIC eGFR Non- Am 92 11/30 [facility] BASIC eGFR Afr/Amer 112 11/30 Normal Reference: Greater than 60 mL/min/1.73m2 Chronic Kidney Disease Staging: The National Kidney Foundation criteria requires documentation of the GFR on two occasions at least 90 days apart. Stage 1 and 2 definitions REQUIRE correlations WITH the presence of Abnormal Urinalysis Sediment and/or Abnormal Radiographic findings. Stages are NOT defined by the GFR alone Stage 1: Kidney damage with normal or high GFR of 90 or greater Stage 2: Kidney damage with mild decrease in GFR of 60-89 Stage 3: Kidney damage with moderate decrease in GFR 30-59 Stage 4: Kidney damage with severe decrease in GFR 15-29 Stage 5: Kidney damage with GFR Less than 15 or on dialysis [facility] Ethanol Ethanol <5 <=5 11/30 Blood Alcohol (Ethanol) Conversion Information: Multiply mg/dL X 0.001 to convert to G/L Examples: 100 mg/dL X 0.001 = 0.10 G/L 80 mg/dL X 0.001 = 0.08 G/L Note: [place] Legal Limit = 0.08 G/L [facility] Hemogram WBC 7.1 4.3 - 11.0 11/30 [facility] Hemogram RBC 4.47 4.40 - 5.90 11/30 [facility] Hemogram Hgb 14.3 13.5 - 17.5 11/30 [facility] Hemogram Hct 44.2 41.0 - 52.0 11/30 [facility] Hemogram MCV 98.9 80.0 - 100.0 11/30 [facility] Hemogram MCH 31.9 25.0 - 35.0 11/30 [facility] Hemogram MCHC 32.3 31.0 - 37.0 11/30 [facility] Hemogram RDW 13.5 11.5 - 14.5 11/30 [facility] Hemogram Plt 209 150 - 400 11/30 [facility] UADrugScrn Amphetamines Ur Negative^C X7NEG Negative 11/30 [facility] UADrug[facility]rn Barbiturate Ur Negative^C X7NEG Negative 11/30 [facility] UADrugScrn Benzodiazepi ne Ur Negative^C X7NEG Negative 11/30 [facility] UADrugScrn Cocaine Ur Negative^C X7NEG Negative 11/30 [facility] UADrugScrn Opiates Ur Negative^C X7NEG Negative 11/30 [facility] UADrugScrn PCP Scrn, Ur Negative^C X7NEG Negative 11/30 [facility] UADrugScrn THC, Ur Negative^C X7NEG Negative 11/30 [facility] UADrug[facility]rn Tricyclic Scr, Ur Negative^N egative Negative 11/30 [facility] UADrug[facility]rn DrgScrn Method Instrument ^Instrumen t 11/30 [facility] UADrug[facility] DrugScrn Interp URINE DRUG ABUSE SCREEN THRESHOLD LIMITS ARE FOLLOWS ------ Amphetamin es 1000 ng/mL Benzodiaze pines 200 ng/mL Cocaine Metabolite 300 ng/mL Opiates 300 ng/mL Barbiturat es 200 ng/mL Tetrahydro cannibinol (THC) 50 ng/mL Phencyclid ine (PCP) 25 ng/mL Tricyclic Antidepres sants 500 ng/mL NOTE: This method does not detect Methadone. The above assays provide only preliminar y analytical results. If confirmati on or quantifica tion is needed, please request the specific assay(s) desired. Results are for medical purposes only. 11/30 [facility] Cardiac Troponin I <20 <=30 ng/L 11/30 [facility] General Chemistry BUN/Library Consultant Ratio 18 8 - 24 11/30 [facility] General Chemistry eGFR Afr/Amer 112 11/30 [facility] General Chemistry eGFR Non- Am 92 11/30 [facility] General Chemistry BUN 17 8 - 25 11/30 [facility] General Chemistry Creatinine 0.95 0.50 - 1.50 11/30 [facility] General Chemistry Anion Gap 16 6 - 17 11/30 [facility] General Chemistry Calcium 10.0 8.4 - 10.5 11/30 [facility] General Chemistry CO2 25 24 - 32 11/30 [facility] General Chemistry Sodium 139 136 - 146 11/30 [facility] General Chemistry Glucose Level 67 70 - 99 11/30 [facility] General Chemistry Chloride 103 98 - 110 11/30 [facility] General Chemistry Potassium 4.7 3.5 - 5.5 11/30 [facility] Hematology -CBC Plt 209 150 - 400 11/30 [facility] Hematology -CBC MCV 98.9 80.0 - 100.0 11/30 [facility] Hematology -CBC RDW 13.5 11.5 - 14.5 11/30 [facility] Hematology -CBC MCHC 32.3 31.0 - 37.0 11/30 [facility] Hematology -CBC MCH 31.9 25.0 - 35.0 11/30 [facility] Hematology -CBC WBC 7.1 4.3 - 11.0 11/30 [facility] Hematology -CBC Hct 44.2 41.0 - 52.0 11/30 [facility] Hematology -CBC RBC 4.47 4.40 - 5.90 11/30 [facility] Hematology -CBC Hgb 14.3 13.5 - 17.5 11/30 [facility] Therapeuti c Drugs Acetaminophe n Level <10 10 - 30 11/30 [facility] Therapeuti c Drugs Salicylate Level 0 0 - 20 11/30 [facility] Toxicology Ethanol <5 <=5 mg/dL 11/30 [facility] Toxicology Cocaine Ur Negative *NA* (11/30/15 10:30 AM) Negative 11/30 [facility] Toxicology Opiates Ur Negative *NA* (11/30/15 10:30 AM) Negative 11/30 [facility] Toxicology PCP Scrn, Ur Negative *NA* (11/30/15 10:30 AM) Negative 11/30 [facility] Toxicology DrgScrn Method Instrument (11/30/15 10:30 AM) 11/30 [facility] Toxicology UTCAScr Raw 129 11/30 [facility] Toxicology DrugScrn Inter URINE DRUG ABUSE SCREEN THRESHOLD LIMITS ARE FOLLOWS ------ Amphetamin es 1000 ng/mL Benzodiaze pines 200 ng/mL Cocaine Metabolite 300 ng/mL Opiates 300 ng/mL Barbiturat es 200 ng/mL Tetrahydro cannibinol (THC) 50 ng/mL Phencyclid ine (PCP) 25 ng/mL Tricyclic Antidepres sants 500 ng/mL NOTE: This method does not detect Methadone. ? The above assays provide only preliminar y analytical results.? If confirmati on or quantifica tion is needed, please request the specific assay(s) desired. Results are for medical purposes only. 11/30 [facility] Toxicology Tricyclic Scr, Ur Negative *NA* (11/30/15 10:30 AM) Negative 11/30 [facility] Toxicology THC, Ur Negative *NA* (11/30/15 10:30 AM) Negative 11/30 [facility] Toxicology Barbiturate Ur Negative *NA* (11/30/15 10:30 AM) Negative 11/30 [facility] Toxicology Benzodiazepi ne Ur Negative *NA* (11/30/15 10:30 AM) Negative 11/30 [facility] Toxicology Amphetamines Ur Negative *NA* (11/30/15 10:30 AM) Negative 11/30 [facility] UADrugScrn Amphetamines Ur Negative^C X7NEG 11/29 [facility] UADrugScrn Barbiturate Ur Negative^C X7NEG 11/29 [facility] UADrugScrn Benzodiazepi ne Ur Negative^C X7NEG 11/29 [facility] UADrugScrn Cocaine Ur Negative^C X7NEG 11/29 [facility] UADrugScrn UMethadone Scr Negative^C X7NEG 11/29 [facility] UADrugScrn Opiates Ur Negative^C X7NEG 11/29 [facility] UADrugScrn PCP Scrn, Ur Negative^C X7NEG 11/29 [facility] UADrugScrn THC, Ur Negative^C X7NEG 11/29 [facility] UADrugScrn Tricyclic Scr, Ur Negative^C X7NEG 11/29 . [facility] UADrugScrn DrgScrn Method Instrument ^Instrumen t 11/29 [facility] UADrugScrn DrugScrn Interp URINE DRUG ABUSE SCREEN THRESHOLD LIMITS ARE FOLLOWS ------ Amphetamin es 1000 ng/mL Benzodiaze pines 200 ng/mL Cocaine Metabolite 300 ng/mL Opiates 300 ng/mL Barbiturat es 200 ng/mL Tetrahydro cannibinol (THC) 50 ng/mL Phencyclid ine (PCP) 25 ng/mL Tricyclic Antidepres sants 500 ng/mL Methadone 300 ng/mL NOTE: The above assays provide only preliminar y analytical results. If confirmati on or quantifica tion is needed, please request the specific assay(s) desired. Results are for medical purposes only. 11/29 [facility] Acetaminop hen Level Acetaminophe n Level <10 10 - 30 11/29 L Acetaminophen Ranges: Therapeutic: 10 - 30 mcg/mL Toxic 4 hr Post OD: > 150 mcg/mL Toxic 12 hr Post OD: > 50 mcg/mL To interpret levels after an overdose, the time of ingestion must be known. Serum half-life is the best predictor of the extent of possible hepatic injury. [facility] Ethanol Ethanol <5 <=5 11/29 Blood Alcohol (Ethanol) Conversion Information: Multiply mg/dL X 0.001 to convert to G/L Examples: 100 mg/dL X 0.001 = 0.10 G/L 80 mg/dL X 0.001 = 0.08 G/L Note: [place] Legal Limit = 0.08 G/L [facility] Salicylate Salicylate Level <4 0 - 20 11/29 ANALGESIC.... ........ 5.0 - 10.0 mg/dL ANTI-INFLAMMA TORY.... 20.0 - 30.0 mg/dL Levels above 30 may be toxic [facility] Therapeu [facility] Drugs Salicylate Level <4 0 - 20 11/29 [facility] Therapeuti c Drugs Acetaminophe n Level <10 10 - 30 11/29 [facility] Toxicology Ethanol <5 <=5 mg/dL 11/29 [facility] Toxicology DrugScrn Interp URINE DRUG ABUSE SCREEN THRESHOLD LIMITS ARE FOLLOWS ------ Amphetamin es 1000 ng/mL Benzodiaze pines 200 ng/mL Cocaine Metabolite 300 ng/mL Opiates 300 ng/mL Barbiturat es 200 ng/mL Tetrahydro cannibinol (THC) 50 ng/mL Phencyclid ine (PCP) 25 ng/mL Tricyclic Antidepres sants 500 ng/mL Methadone 300 ng/mL NOTE: The above assays provide only preliminar y analytical results. If confirmati on or quantifica tion is needed, please request the specific assay(s) desired. Results are for medical purposes only. 11/29 [facility] Toxicology PCP Scrn, Ur Negative *NA* (11/29/15 1:20 AM) 11/29 [facility] Toxicology UMethadone Scr Negative *NA* (11/29/15 1:20 AM) 11/29 [facility] Toxicology Opiates Ur Negative *NA* (11/29/15 1:20 AM) 11/29 [facility] Toxicology DrgScrn Method Instrument (11/29/15 1:20 AM) 11/29 [facility] Toxicology Tricyclic Scr, Ur Negative *NA* (11/29/15 1:20 AM) 11/29 [facility] Toxicology Amphetamines Ur Negative *NA* (11/29/15 1:20 AM) 11/29 [facility] Toxicology Benzodiazepi ne Ur Negative *NA* (11/29/15 1:20 AM) 11/29 [facility] Toxicology Barbiturate Ur Negative *NA* (11/29/15 1:20 AM) 11/29 [facility] Toxicology Cocaine Ur Negative *NA* (11/29/15 1:20 AM) 11/29 [facility] Toxicology THC, Ur Negative *NA* (11/29/15 1:20 AM) 11/29 [facility] UADrugScrn Amphetamines Ur Negative^C X7NEG 11/28 [facility] UADrugScrn Barbiturate Ur Negative^C X7NEG 11/28 [facility] UADrugScrn Benzodiazepi ne Ur Negative^C X7NEG 11/[facility]^C X[facility]NEG 11/28 [facility] UMethadone Scr Negative^C X7NEG 11/28 [facility] UADrugScrn Opiates Ur Negative^C X7NEG 11/28 [facility] UADrugScrn PCP Scrn, Ur Negative^C X7NEG 11/28 [facility] UADrugScrn THC, Ur Positive^C X7POS 11/28 [facility] Tricyclic Scr, Ur Negative^C X7NEG 11/28 . [facility] Method Instrument ^Instrumen t 11/28 [facility] Interp URINE DRUG ABUSE SCREEN THRESHOLD LIMITS ARE FOLLOWS ------ Amphetamin es 1000 ng/mL Benzodiaze pines 200 ng/mL Cocaine Metabolite 300 ng/mL Opiates 300 ng/mL Barbiturat es 200 ng/mL Tetrahydro cannibinol (THC) 50 ng/mL Phencyclid ine (PCP) 25 ng/mL Tricyclic Antidepres sants 500 ng/mL Methadone 300 ng/mL NOTE: The above assays provide only preliminar y analytical results. If confirmati on or quantifica tion is needed, please request the specific assay(s) desired. Results are for medical purposes only. 11/28 [facility] Acetaminop hen Level Acetaminophe n Level <10 10 - 30 11/28 L Acetaminophen Ranges: Therapeutic: 10 - 30 mcg/mL Toxic 4 hr Post OD: > 150 mcg/mL Toxic 12 hr Post OD: > 50 mcg/mL To interpret levels after an overdose, the time of ingestion must be known. Serum half-life is the best predictor of the extent of possible hepatic injury. [facility] BASIC Sodium 136 136 - 146 11/28 [facility] BASIC Potassium 3.8 3.5 - 5.5 11/28 [facility] BASIC Chloride 96 98 - 110 11/28 L [facility] BASIC CO2 28 24 - 32 11/28 [facility] BASIC Glucose Level 79 70 - 99 11/28 [facility] BASIC BUN 16 8 - 25 11/28 [facility] BASIC Creatinine 1.15 0.50 - 1.50 11/28 [facility] BASIC BUN/Library Consultant Ratio 14 8 - 24 11/28 [facility] BASIC Calcium 9.0 8.4 - 10.5 11/28 [facility] BASIC Anion Gap 16 6 - 17 11/28 The reported anion gap uses the calculation of (Na + K)-(Cl +CO2). [facility] BASIC eGFR Non- Am 74 11/28 [facility] BASIC eGFR Afr/Amer 90 11/28 Normal Reference: Greater than 60 mL/min/1.73m2 Chronic Kidney Disease Staging: The National Kidney Foundation criteria requires documentation of the GFR on two occasions at least 90 days apart. Stage 1 and 2 definitions REQUIRE correlations WITH the presence of Abnormal Urinalysis Sediment and/or Abnormal Radiographic findings. Stages are NOT defined by the GFR alone Stage 1: Kidney damage with normal or high GFR of 90 or greater Stage 2: Kidney damage with mild decrease in GFR of 60-89 Stage 3: Kidney damage with moderate decrease in GFR 30-59 Stage 4: Kidney damage with severe decrease in GFR 15-29 Stage 5: Kidney damage with GFR Less than 15 or on dialysis [facility] Salicylate Salicylate Level <4 0 - 20 11/28 ANALGESIC.... ........ 5.0 - 10.0 mg/dL ANTI-INFLAMMA TORY.... 20.0 - 30.0 mg/dL Levels above 30 may be toxic [facility] Hemogram WBC 8.3 4.3 - 11.0 11/28 [facility] Hemogram RBC 3.99 4.40 - 5.90 11/28 L [facility] [facility] Hemogram Hgb 12.7 13.5 - 17.5 11/28 [facility] Hemogram Hct 38.6 41.0 - 52.0 11/28 [facility] Hemogram MCV 96.9 80.0 - 100.0 11/28 [facility] Hemogram MCH 31.8 25.0 - 35.0 11/28 [facility] Hemogram MCHC 32.8 31.0 - 37.0 11/28 [facility] Hemogram RDW 13.3 11.5 - 14.5 11/28 [facility] Hemogram Plt 204 150 - 400 11/28 [facility] Ethanol Ethanol < 5 <=5 11/28 Blood Alcohol (Ethanol) Conversion Information: Multiply mg/dL X 0.001 to convert to G/L Examples: 100 mg/dL X 0.001 = 0.10 G/L 80 mg/dL X 0.001 = 0.08 G/L Note: [place] Legal Limit = 0.08 G/L [facility] General Chemistry Anion Gap 16 6 - 17 11/28 [facility] General Chemistry Chloride 96 98 - 110 11/28 [facility] Chemistry CO2 28 24 - 32 11/28 [facility] Chemistry Glucose Level 79 70 - 99 11/28 [facility] Chemistry BUN 16 8 - 25 11/28 [facility] Chemistry Sodium 136 136 - 146 11/28 [facility] Chemistry BUN/Library Consultant Ratio 14 8 - 24 11/28 [facility] General Chemistry eGFR Afr/Amer 90 11/28 [facility] General Chemistry Potassium 3.8 3.5 - 5.5 11/28 [facility] General Chemistry Creatinine 1.15 0.50 - 1.50 11/28 [facility] Chemistry Calcium 9.0 8.4 - 10.5 11/28 [facility] Chemistry eGFR Non- Am 74 11/28 [facility] Hematology -CBC RDW 13.3 11.5 - 14.5 11/28 [facility] Hematology -CBC MCHC 32.8 31.0 - 37.0 11/28 [facility] Hematology -CBC Plt 204 150 - 400 11/28 [facility] Hematology -CBC MCH 31.8 25.0 - 35.0 11/28 [facility] Hematology -CBC Hgb 12.7 13.5 - 17.5 11/28 [facility] Hematology -CBC WBC 8.3 4.3 - 11.0 11/28 [facility] Hematology -CBC MCV 96.9 80.0 - 100.0 11/28 [facility] Hematology -CBC RBC 3.99 4.40 - 5.90 11/28 [facility] Hematology -CBC Hct 38.6 41.0 - 52.0 11/28 [facility] Drugs Acetaminophe n Level <10 10 - 30 11/28 [facility] c Drugs Salicylate Level <4 0 - 20 11/28 [facility] Toxicology Ethanol <5 <=5 mg/dL 11/28 [facility] Toxicology Tricyclic Scr, Ur Negative *NA* (11/27/15 7:29 PM) 11/28 [facility] Toxicology PCP Scrn, Ur Negative *NA* (11/27/15 7:29 PM) 11/28 [facility] Toxicology DrgScrn Method Instrument (11/27/15 7:29 PM) 11/28 [facility] Toxicology DrugScrn Inter URINE DRUG ABUSE SCREEN THRESHOLD LIMITS ARE FOLLOWS ------ Amphetamin es 1000 ng/mL Benzodiaze pines 200 ng/mL Cocaine Metabolite 300 ng/mL Opiates 300 ng/mL Barbiturat es 200 ng/mL Tetrahydro cannibinol (THC) 50 ng/mL Phencyclid ine (PCP) 25 ng/mL Tricyclic Antidepres sants 500 ng/mL Methadone 300 ng/mL NOTE: The above assays provide only preliminar y analytical results. If confirmati on or quantifica tion is needed, please request the specific assay(s) desired. Results are for medical purposes only. 11/28 [facility] Toxicology Amphetamines Ur Negative *NA* (11/27/15 7:29 PM) 11/28 [facility] Toxicology Cocaine Ur Negative *NA* (11/27/15 7:29 PM) 11/28 [facility] Toxicology THC, Ur Positive *NA* (11/27/15 7:29 PM) 11/28 [facility] Toxicology Benzodiazepi ne Ur Negative *NA* (11/27/15 7:29 PM) 11/28 [facility] Toxicology UMethadone Scr Negative *NA* (11/27/15 7:29 PM) 11/28 [facility] Toxicology Opiates Ur Negative *NA* (11/27/15 7:29 PM) 11/28 [facility] Toxicology Barbiturate Ur Negative *NA* (11/27/15 7:29 PM) 11/28 [facility] Ethanol Ethanol <5 <=5 11/11 Blood Alcohol (Ethanol) Conversion Information: Multiply mg/dL X 0.001 to convert to G/L Examples: 100 mg/dL X 0.001 = 0.10 G/L 80 mg/dL X 0.001 = 0.08 G/L Note: [place] Limit = 0.08 G/L [facility] Salicylate Salicylate Level <4 0 - 20 11/11 ANALGESIC.... ........ 5.0 - 10.0 mg/dL ANTI-INFLAMMA TORY.... 20.0 - 30.0 mg/dL Levels above 30 may be toxic [facility] CMP Sodium 136 136 - 146 11/11 [facility] CMP Potassium 3.9 3.5 - 5.5 11/11 [facility] CMP Chloride 101 98 - 110 11/11 [facility] CMP CO2 27 24 - 32 11/11 [facility] CMP Glucose Level 83 70 - 99 11/11 [facility] CMP BUN 19 8 - 25 11/11 [facility] CMP Creatinine 1.17 0.50 - 1.50 11/11 [facility] CMP BUN/Library Consultant Ratio 16 8 - 24 11/11 [facility] CMP Anion Gap 12 6 - 17 11/11 The reported anion gap uses the calculation of (Na + K)-(Cl +CO2). [facility] CMP Calcium 9.0 8.4 - 10.5 11/11 [facility] CMP Corrected Calcium 8.9 8.4 - 10.5 11/11 [facility] CMP Protein, Total 6.9 6.0 - 8.0 11/11 [facility] CMP Albumin 4.1 3.0 - 5.0 11/11 [facility] CMP Alkphos 67 35 - 130 11/11 [facility] CMP ALT 39 0 - 45 11/11 [facility] CMP AST 49 0 - 40 11/11 H [facility] CMP Bili Total 1.5 0.2 - 1.2 11/11 H [facility] CMP eGFR Non- Am 73 11/11 [facility] CMP eGFR Afr/Amer 88 11/11 Normal Reference: Greater than 60 mL/min/1.73m2 Chronic Kidney Disease Staging: The National Kidney Foundation criteria requires documentation of the GFR on two occasions at least 90 days apart. Stage 1 and 2 definitions REQUIRE correlations WITH the presence of Abnormal Urinalysis Sediment and/or Abnormal Radiographic findings. Stages are NOT defined by the GFR alone Stage 1: Kidney damage with normal or high GFR of 90 or greater Stage 2: Kidney damage with mild decrease in GFR of 60-89 Stage 3: Kidney damage with moderate decrease in GFR 30-59 Stage 4: Kidney damage with severe decrease in GFR 15-29 Stage 5: Kidney damage with GFR Less than 15 or on dialysis [facility] Acetaminop hen Level Acetaminophe n Level <10 10 - 30 11/11 L Acetaminophen Ranges: Therapeutic: 10 - 30 mcg/mL Toxic 4 hr Post OD: > 150 mcg/mL Toxic 12 hr Post OD: > 50 mcg/mL To interpret levels after an overdose, the time of ingestion must be known. Serum half-life is the best predictor of the extent of possible hepatic injury. [facility] Hemogram WBC 8.8 4.3 - 11.0 11/11 [facility] Hemogram RBC 4.09 4.40 - 5.90 11/11 L [facility] Hemogram Hgb 12.6 13.5 - 17.5 11/11 L [facility] Hemogram Hct 39.2 41.0 - 52.0 11/11 L [facility] Hemogram MCV 95.8 80.0 - 100.0 11/11 [facility] Hemogram MCH 30.7 25.0 - 35.0 11/11 [facility] Hemogram MCHC 32.0 31.0 - 37.0 11/11 [facility] Hemogram RDW 13.2 11.5 - 14.5 11/11 [facility] Hemogram Plt 237 150 - 400 11/11 [facility] General Chemistry eGFR Afr/Amer 88 11/11 [facility] Chemistry eGFR Non- Am 73 11/11 [facility] Chemistry Corrected Calcium 8.9 8.4 - 10.5 11/11 [facility] Chemistry Calcium 9.0 8.4 - 10.5 11/11 [facility] BUN/Library Consultant Ratio 16 8 - 24 11/11 [facility] Creatinine 1.17 0.50 - 1.50 11/11 [facility] BUN 19 8 - 25 11/11 [facility] Glucose Level 83 70 - 99 11/11 [facility] CO2 27 24 - 32 11/11 [facility] Chloride 101 98 - 110 11/11 [facility] Bili Total 1.5 0.2 - 1.2 11/11 [facility] ALT 39 0 - 45 11/11 [facility] Chemistry AST 49 0 - 40 11/11 [facility] Potassium 3.9 3.5 - 5.5 11/11 [facility] Sodium 136 136 - 146 11/11 [facility] Alkphos 67 35 - 130 11/11 [facility] Protein, Total 6.9 6.0 - 8.0 11/11 [facility] Anion Gap 12 6 - 17 11/11 [facility] Albumin 4.1 3.0 - 5.0 11/11 [facility] Hematology -CBC Hct 39.2 41.0 - 52.0 11/11 [facility] Hematology -CBC RBC 4.09 4.40 - 5.90 11/11 [facility] Hematology -CBC Hgb 12.6 13.5 - 17.5 11/11 [facility] Hematology -CBC RDW 13.2 11.5 - 14.5 11/11 [facility] Hematology -CBC MCHC 32.0 31.0 - 37.0 11/11 [facility] Hematology -CBC Plt 237 150 - 400 11/11 [facility] Hematology -CBC WBC 8.8 4.3 - 11.0 11/11 [facility] Hematology -CBC MCH 30.7 25.0 - 35.0 11/11 [facility] Hematology -CBC MCV 95.8 80.0 - 100.0 11/11 [facility] c Drugs Acetaminophe n Level <10 10 - 30 11/11 [facility] c Drugs Salicylate Level <4 0 - 20 11/11 [facility] Toxicology Ethanol <5 <=5 mg/dL 11/11 [facility] UADrugScrn Amphetamines Ur Negative^C X7NEG 11/11 [facility] UADrugScrn Barbiturate Ur Negative^C X7NEG 11/11 [facility] UADrugScrn Benzodiazepi ne Ur Negative^C X7NEG 11/11 [facility] UADrugScrn Cocaine Ur Negative^C X7NEG 11/11 [facility] UADrugScrn UMethadone Scr Negative^C X7NEG 11/11 [facility] UADrugScrn Opiates Ur Negative^C X7NEG 11/11 [facility] UADrugScrn PCP Scrn, Ur Negative^C X7NEG 11/11 [facility] UADrugScrn THC, Ur Negative^C X7NEG 11/11 [facility] UADrugScrn Tricyclic Scr, Ur Negative^C X7NEG 11/11 [facility] ^Instrumen t 11/11 [facility] URINE DRUG ABUSE SCREEN THRESHOLD LIMITS ARE FOLLOWS ------ Amphetamin es 1000 ng/mL Benzodiaze pines 200 ng/mL Cocaine Metabolite 300 ng/mL Opiates 300 ng/mL Barbiturat es 200 ng/mL Tetrahydro cannibinol (THC) 50 ng/mL Phencyclid ine (PCP) 25 ng/mL Tricyclic Antidepres sants 500 ng/mL Methadone 300 ng/mL NOTE: The above assays provide only preliminar y analytical results. If confirmati on or quantifica tion is needed, please request the specific assay(s) desired. Results are for medical purposes only. 11/11 [facility] URINE DRUG ABUSE SCREEN THRESHOLD LIMITS ARE FOLLOWS ------ Amphetamin es 1000 ng/mL Benzodiaze pines 200 ng/mL Cocaine Metabolite 300 ng/mL Opiates 300 ng/mL Barbiturat es 200 ng/mL Tetrahydro cannibinol (THC) 50 ng/mL Phencyclid ine (PCP) 25 ng/mL Tricyclic Antidepres sants 500 ng/mL Methadone 300 ng/mL NOTE: The above assays provide only preliminar y analytical results. If confirmati on or quantifica tion is needed, please request the specific assay(s) desired. Results are for medical purposes only. 11/11 [facility] Toxicology PCP Scrn, Ur Negative *NA* (11/10/15 11:00 PM) 11/11 [facility] Toxicology DrgScrn Method Instrument (11/10/15 11:00 PM) 11/11 [facility] Toxicology Tricyclic Scr, Ur Negative *NA* (11/10/15 11:00 PM) 11/11 [facility] Toxicology Cocaine Ur Negative *NA* (11/10/15 11:00 PM) 11/11 [facility] Toxicology Barbiturate Ur Negative *NA* (11/10/15 11:00 PM) 11/11 [facility] Toxicology THC, Ur Negative *NA* (11/10/15 11:00 PM) 11/11 [facility] Toxicology Benzodiazepi ne Ur Negative *NA* (11/10/15 11:00 PM) 11/11 [facility] Toxicology Amphetamines Ur Negative *NA* (11/10/15 11:00 PM) 11/11 [facility] Toxicology UMethadone Scr Negative *NA* (11/10/15 11:00 PM) 11/11 [facility] Toxicology Opiates Ur Negative *NA* (11/10/15 11:00 PM) 11/11 [facility] UADrugScrn Amphetamines Ur Negative^C X7NEG 10/30 [facility] UADrugScrn Barbiturate Ur Negative^C X7NEG 10/30 [facility] UADrugScrn Benzodiazepi ne Ur Negative^C X7NEG 10/30 [facility] UADrugScrn Cocaine Ur Negative^C X7NEG 10/30 [facility] UADrugScrn UMethadone Scr Negative^C X7NEG 10/30 [facility] UADrugScrn Opiates Ur Negative^C X7NEG 10/30 [facility] UADrugScrn PCP Scrn, Ur Negative^C X7NEG 10/30 [facility] UADrugScrn THC, Ur Negative^C X7NEG 10/30 [facility] UADrugScrn Tricyclic Scr, Ur Negative^C X7NEG 10/30 . [facility] UADrugScrn DrgScrn Method Instrument ^Instrumen t 10/30 [facility] UADrugScrn DrugScrn Interp URINE DRUG ABUSE SCREEN THRESHOLD LIMITS ARE FOLLOWS ------ Amphetamin es 1000 ng/mL Benzodiaze pines 200 ng/mL Cocaine Metabolite 300 ng/mL Opiates 300 ng/mL Barbiturat es 200 ng/mL Tetrahydro cannibinol (THC) 50 ng/mL Phencyclid ine (PCP) 25 ng/mL Tricyclic Antidepres sants 500 ng/mL Methadone 300 ng/mL NOTE: The above assays provide only preliminar y analytical results. If confirmati on or quantifica tion is needed, please request the specific assay(s) desired. Results are for medical purposes only. 10/30 [facility] Bilirubin Direct Bili Direct 0.2 0.0 - 0.3 10/30 [facility] Acetaminop hen Level Acetaminophe n Level <10 10 - 30 10/30 L Acetaminophen Ranges: Therapeutic: 10 - 30 mcg/mL Toxic 4 hr Post OD: > 150 mcg/mL Toxic 12 hr Post OD: > 50 mcg/mL To interpret levels after an overdose, the time of ingestion must be known. Serum half-life is the best predictor of the extent of possible hepatic injury. [facility] CMP Sodium 139 136 - 146 10/30 [facility] CMP Potassium 3.4 3.5 - 5.5 10/30 L [facility] CMP Chloride 104 98 - 110 10/30 [facility] CMP CO2 24 24 - 32 10/30 [facility] CMP Glucose Level 92 70 - 99 10/30 [facility] CMP BUN 12 8 - 25 10/30 [facility] CMP Creatinine 1.14 0.50 - 1.50 10/30 [facility] CMP BUN/Library Consultant Ratio 11 8 - 24 10/30 [facility] CMP Anion Gap 14 6 - 17 10/30 The reported anion gap uses the calculation of (Na + K)-(Cl +CO2). [facility] CMP Calcium 8.9 8.4 - 10.5 10/30 [facility] Corrected Calcium 8.7 8.4 - 10.5 10/30 [facility] CMP Protein, Total 7.0 6.0 - 8.0 10/30 [facility] CMP Albumin 4.2 3.0 - 5.0 10/30 [facility] CMP Alkphos 78 35 - 130 10/30 [facility] CMP ALT 20 0 - 45 10/30 [facility] CMP AST 24 0 - 40 10/30 [facility] CMP Bili Total 1.3 0.2 - 1.2 10/30 H [facility] CMP eGFR Non- Am 75 10/30 [facility] CMP eGFR Afr/Amer 91 10/30 Normal Reference: Greater than 60 mL/min/1.73m2 Chronic Kidney Disease Staging: The National Kidney Foundation criteria requires documentation of the GFR on two occasions at least 90 days apart. Stage 1 and 2 definitions REQUIRE correlations WITH the presence of Abnormal Urinalysis Sediment and/or Abnormal Radiographic findings. Stages are NOT defined by the GFR alone Stage 1: Kidney damage with normal or high GFR of 90 or greater Stage 2: Kidney damage with mild decrease in GFR of 60-89 Stage 3: Kidney damage with moderate decrease in GFR 30-59 Stage 4: Kidney damage with severe decrease in GFR 15-29 Stage 5: Kidney damage with GFR Less than 15 or on dialysis [facility] Salicylate Salicylate Level <4 0 - 20 10/30 ANALGESIC.... ........ 5.0 - 10.0 mg/dL ANTI-INFLAMMA TORY.... 20.0 - 30.0 mg/dL Levels above 30 may be toxic [facility] Ethanol Ethanol 53 <=5 10/30 H Blood Alcohol (Ethanol) Conversion Information: Multiply mg/dL X 0.001 to convert to G/L Examples: 100 mg/dL X 0.001 = 0.10 G/L 80 mg/dL X 0.001 = 0.08 G/L Note: [place] Legal Limit = 0.08 G/L [facility] Hemogram WBC 6.9 4.3 - 11.0 10/29 [facility] Hemogram RBC 4.25 4.40 - 5.90 10/29 L [facility] Hemogram Hgb 12.9 13.5 - 17.5 10/29 L [facility] Hemogram Hct 40.0 41.0 - 52.0 10/29 L [facility] Hemogram MCV 94.0 80.0 - 100.0 10/29 [facility] Hemogram MCH 30.4 25.0 - 35.0 10/29 [facility] Hemogram MCHC 32.3 31.0 - 37.0 10/29 [facility] Hemogram RDW 13.5 11.5 - 14.5 10/29 [facility] Hemogram Plt 224 150 - 400 10/29 [facility] Acetaminop hen Level Acetaminophe n Level <10 - 30 10/10 L Acetaminophen Ranges: Therapeutic: 10 - 30 mcg/mL Toxic 4 hr Post OD: > 150 mcg/mL Toxic 12 hr Post OD: > 50 mcg/mL To interpret levels after an overdose, the time of ingestion must be known. Serum half-life is the best predictor of the extent of possible hepatic injury. [facility] BASIC Sodium 134 136 - 146 10/10 L [facility] BASIC Potassium 4.2 3.5 - 5.5 10/10 [facility] BASIC Chloride 98 98 - 110 10/10 [facility] BASIC CO2 27 24 - 32 10/10 [facility] BASIC Glucose Level 90 70 - 99 10/10 [facility] BASIC BUN 13 8 - 25 10/10 [facility] BASIC Creatinine 1.03 0.50 - 1.50 10/10 [facility] BASIC BUN/Library Consultant Ratio 13 8 - 24 10/10 [facility] BASIC Calcium 9.1 8.4 - 10.5 10/10 [facility] BASIC Anion Gap 13 6 - 17 10/10 The reported anion gap uses the calculation of (Na + K)-(Cl +CO2). [facility] BASIC eGFR Non- Am 84 10/10 [facility] BASIC eGFR Afr/Amer 102 10/10 Normal Reference: Greater than 60 mL/min/1.73m2 Chronic Kidney Disease Staging: The National Kidney Foundation criteria requires documentation of the GFR on two occasions at least 90 days apart. Stage 1 and 2 definitions REQUIRE correlations WITH the presence of Abnormal Urinalysis Sediment and/or Abnormal Radiographic findings. Stages are NOT defined by the GFR alone Stage 1: Kidney damage with normal or high GFR of 90 or greater Stage 2: Kidney damage with mild decrease in GFR of 60-89 Stage 3: Kidney damage with moderate decrease in GFR 30-59 Stage 4: Kidney damage with severe decrease in GFR 15-29 Stage 5: Kidney damage with GFR Less than 15 or on dialysis [facility] Liver Panel Protein, Total 8.1 6.0 - 8.0 10/10 H [facility] Liver Panel Albumin 4.9 3.0 - 5.0 10/10 [facility] Liver Panel Alkphos 84 35 - 130 10/10 [facility] Liver Panel ALT 21 0 - 45 10/10 [facility] Liver Panel AST 29 0 - 40 10/10 [facility] Liver Panel Bili Total 2.2 0.2 - 1.2 10/10 H [facility] Liver Panel Bili Direct 0.3 0.0 - 0.3 10/10 [facility] Salicylate Salicylate Level <4 0 - 20 10/10 ANALGESIC.... ........ 5.0 - 10.0 mg/dL ANTI-INFLAMMA TORY.... 20.0 - 30.0 mg/dL Levels above 30 may be toxic [facility] Ethanol Ethanol 26 <=5 10/10 H Blood Alcohol (Ethanol) Conversion Information: Multiply mg/dL X 0.001 to convert to G/L Examples: 100 mg/dL X 0.001 = 0.10 G/L 80 mg/dL X 0.001 = 0.08 G/L Note: [place] Legal Limit = 0.08 G/L [facility] Hemogram WBC 5.4 4.3 - 11.0 10/10 [facility] Hemogram RBC 4.57 4.40 - 5.90 10/10 [facility] Hemogram Hgb 14.3 13.5 - 17.5 10/10 [facility] Hemogram Hct 43.2 41.0 - 52.0 10/10 [facility] Hemogram MCV 94.6 80.0 - 100.0 10/10 [facility] Hemogram MCH 31.3 25.0 - 35.0 10/10 [facility] Hemogram MCHC 33.1 31.0 - 37.0 10/10 [facility] Hemogram RDW 12.3 11.5 - 14.5 10/10 [facility] Hemogram Plt 236 150 - 400 10/10 [facility] Acetaminop hen Level Acetaminophe n Level <10 10 - 30 08/28 L Acetaminophen Ranges: Therapeutic: 10 - 30 mcg/mL Toxic 4 hr Post OD: > 150 mcg/mL Toxic 12 hr Post OD: > 50 mcg/mL To interpret levels after an overdose, the time of ingestion must be known. Serum half-life is the best predictor of the extent of possible hepatic injury. [facility] CMP Sodium 142 136 - 146 08/28 [facility] CMP Potassium 3.8 3.5 - 5.5 08/28 [facility] CMP Chloride 103 98 - 110 08/28 [facility] CMP CO2 32 24 - 32 08/28 [facility] CMP Glucose Level 84 70 - 99 08/28 [facility] CMP BUN 20 8 - 25 08/28 [facility] CMP Creatinine 1.24 0.50 - 1.50 08/28 [facility] CMP BUN/Library Consultant Ratio 16 8 - 24 08/28 [facility] CMP Anion Gap 11 6 - 17 08/28 The reported anion gap uses the calculation of (Na + K)-(Cl +CO2). [facility] CMP Calcium 9.2 8.4 - 10.5 08/28 [facility] CMP Corrected Calcium 8.9 8.4 - 10.5 08/28 [facility] CMP Protein, Total 7.7 6.0 - 8.0 08/28 [facility] CMP Albumin 4.4 3.0 - 5.0 08/28 [facility] CMP Alkphos 68 35 - 130 08/28 [facility] CMP ALT 26 0 - 45 08/28 [facility] CMP AST 33 0 - 40 08/28 [facility] CMP Bili Total 1.5 0.2 - 1.2 08/28 H [facility] CMP eGFR Non- Am 68 08/28 [facility] CMP eGFR Afr/Amer 82 08/28 Normal Reference: Greater than 60 mL/min/1.73m2 Chronic Kidney Disease Staging: The National Kidney Foundation criteria requires documentation of the GFR on two occasions at least 90 days apart. Stage 1 and 2 definitions REQUIRE correlations WITH the presence of Abnormal Urinalysis Sediment and/or Abnormal Radiographic findings. Stages are NOT defined by the GFR alone Stage 1: Kidney damage with normal or high GFR of 90 or greater Stage 2: Kidney damage with mild decrease in GFR of 60-89 Stage 3: Kidney damage with moderate decrease in GFR 30-59 Stage 4: Kidney damage with severe decrease in GFR 15-29 Stage 5: Kidney damage with GFR Less than 15 or on dialysis [facility] Salicylate Salicylate Level <4 0 - 20 08/28 ANALGESIC.... ........ 5.0 - 10.0 mg/dL ANTI-INFLAMMA TORY.... 20.0 - 30.0 mg/dL Levels above 30 may be toxic [facility] Ethanol Ethanol <5 <=5 08/28 Blood Alcohol (Ethanol) Conversion Information: Multiply mg/dL X 0.001 to convert to G/L Examples: 100 mg/dL X 0.001 = 0.10 G/L 80 mg/dL X 0.001 = 0.08 G/L Note: [place] Limit = 0.08 G/L [facility] UADrugScrn Amphetamines Ur Negative^C X7NEG 08/28 [facility] UADrug[employer]rn Barbiturate Ur Negative^C X7NEG 08/28 [facility] UADrugScrn Benzodiazepi ne Ur Negative^C X7NEG 08/28 [facility] UADrugScrn Cocaine Ur Positive^C X7POS 08/28 [facility] UADrugScrn UMethadone Scr Negative^C X7NEG 08/28 [facility] UADrugScrn Opiates Ur Negative^C X7NEG 08/28 [facility] UADrug[employer]rn PCP Scrn, Ur Negative^C X7NEG 08/28 [facility] UADrug[employer]rn THC, Ur Negative^C X7NEG 08/28 [facility] UADrug[employer]rn Tricyclic Scr, Ur Negative^C X7NEG 08/28 . [facility] UADrug[employer]rn DrgScrn Method Instrument ^Instrumen t 08/28 [facility] UADrug[facility] DrugScrn Inter URINE DRUG ABUSE SCREEN THRESHOLD LIMITS ARE FOLLOWS ------ Amphetamin es 1000 ng/mL Benzodiaze pines 200 ng/mL Cocaine Metabolite 300 ng/mL Opiates 300 ng/mL Barbiturat es 200 ng/mL Tetrahydro cannibinol (THC) 50 ng/mL Phencyclid ine (PCP) 25 ng/mL Tricyclic Antidepres sants 500 ng/mL Methadone 300 ng/mL NOTE: The above assays provide only preliminar y analytical results. If confirmati on or quantifica tion is needed, please request the specific assay(s) desired. Results are for medical purposes only. 08/28 [facility] Hemogram WBC 9.8 4.3 - 11.0 08/28 [facility] Hemogram RBC 4.18 4.40 - 5.90 08/28 L [facility] Hemogram Hgb 13.5 13.5 - 17.5 08/28 [facility] Hemogram Hct 40.8 41.0 - 52.0 08/28 [facility] Hemogram MCV 97.7 80.0 - 100.0 08/28 [facility] Hemogram MCH 32.4 25.0 - 35.0 08/28 [facility] Hemogram MCHC 33.2 31.0 - 37.0 08/28 [facility] Hemogram RDW 12.5 11.5 - 14.5 08/28 [facility] Hemogram Plt 217 150 - 400 08/28 [facility] Acetaminop hen Level Acetaminophe n Level <10 10 - 30 08/21 L Acetaminophen Ranges: Therapeutic: 10 - 30 mcg/mL Toxic 4 hr Post OD: > 150 mcg/mL Toxic 12 hr Post OD: > 50 mcg/mL To interpret levels after an overdose, the time of ingestion must be known. Serum half-life is the best predictor of the extent of possible hepatic injury. [facility] BASIC Sodium 140 136 - 146 08/21 [facility] BASIC Potassium 3.8 3.5 - 5.5 08/21 [facility] BASIC Chloride 103 98 - 110 08/21 [facility] BASIC CO2 26 24 - 32 08/21 [facility] BASIC Glucose Level 80 70 - 99 08/21 [facility] BASIC BUN 17 8 - 25 08/21 [facility] BASIC Creatinine 1.07 0.50 - 1.50 08/21 [facility] BASIC BUN/Library Consultant Ratio 16 8 - 24 08/21 [facility] BASIC Calcium 9.0 8.4 - 10.5 08/21 [facility] BASIC Anion Gap 15 6 - 17 08/21 The reported anion gap uses the calculation of (Na + K)-(Cl +CO2). [facility] BASIC eGFR Non- Am 81 08/21 [facility] BASIC eGFR Afr/Amer 98 08/21 Normal Reference: Greater than 60 mL/min/1.73m2 Chronic Kidney Disease Staging: The National Kidney Foundation criteria requires documentation of the GFR on two occasions at least 90 days apart. Stage 1 and 2 definitions REQUIRE correlations WITH the presence of Abnormal Urinalysis Sediment and/or Abnormal Radiographic findings. Stages are NOT defined by the GFR alone Stage 1: Kidney damage with normal or high GFR of 90 or greater Stage 2: Kidney damage with mild decrease in GFR of 60-89 Stage 3: Kidney damage with moderate decrease in GFR 30-59 Stage 4: Kidney damage with severe decrease in GFR 15-29 Stage 5: Kidney damage with GFR Less than 15 or on dialysis [facility] Ethanol Ethanol 152 <=5 08/21 H Blood Alcohol (Ethanol) Conversion Information: Multiply mg/dL X 0.001 to convert to G/L Examples: 100 mg/dL X 0.001 = 0.10 G/L 80 mg/dL X 0.001 = 0.08 G/L Note: [place] Limit = 0.08 G/L [facility] Salicylate Salicylate Level <4 0 - 20 08/21 ANALGESIC.... ........ 5.0 - 10.0 mg/dL ANTI-INFLAMMA TORY.... 20.0 - 30.0 mg/dL Levels above 30 may be toxic [facility] UADrugScrn Amphetamines Ur Positive^C X7POS 08/20 [facility] UADrug[facility]rn Barbiturate Ur Negative^C X7NEG 08/20 [facility] UADrugScrn Benzodiazepi ne Ur Negative^C X7NEG 08/20 [facility] UADrugScrn Cocaine Ur Negative^C X7NEG 08/20 [facility] UADrugScrn UMethadone Scr Negative^C X7NEG 08/20 [facility] UADrugScrn Opiates Ur Negative^C X7NEG 08/20 [facility] UADrugScrn PCP Scrn, Ur Negative^C X7NEG 08/20 [facility] UADrugScrn THC, Ur Negative^C X7NEG 08/20 [facility] UADrugScrn Tricyclic Scr, Ur Negative^C X7NEG 08/20 [facility] ^Instrumen t 08/20 [facility] Interp URINE DRUG ABUSE SCREEN THRESHOLD LIMITS ARE FOLLOWS ------ Amphetamin es 1000 ng/mL Benzodiaze pines 200 ng/mL Cocaine Metabolite 300 ng/mL Opiates 300 ng/mL Barbiturat es 200 ng/mL Tetrahydro cannibinol (THC) 50 ng/mL Phencyclid ine (PCP) 25 ng/mL Tricyclic Antidepres sants 500 ng/mL Methadone 300 ng/mL NOTE: The above assays provide only preliminar y analytical results. If confirmati on or quantifica tion is needed, please request the specific assay(s) desired. Results are for medical purposes only. 08/20 [facility] Hemogram WBC 5.8 4.3 - 11.0 08/20 [facility] Hemogram RBC 3.95 4.40 - 5.90 08/20 [facility] Hemogram Hgb 12.4 13.5 - 17.5 08/20 [facility] Hemogram Hct 38.7 41.0 - 52.0 08/20 [facility] Hemogram MCV 98.1 80.0 - 100.0 08/20 [facility] Hemogram MCH 31.4 25.0 - 35.0 08/20 [facility] Hemogram MCHC 32.0 31.0 - 37.0 08/20 [facility] Hemogram RDW 12.4 11.5 - 14.5 08/20 [facility] Hemogram Plt 223 150 - 400 08/20 [facility] UADrugScrn Amphetamines Ur Negative^C X7NEG 07/23 [facility] UADrugScrn Barbiturate Ur Negative^C X7NEG 07/23 [facility] UADrugScrn Benzodiazepi ne Ur Negative^C X7NEG 07/23 [facility] UADrugScrn Cocaine Ur Negative^C X7NEG 07/23 [facility] UADrugScrn UMethadone Scr Negative^C X7NEG 07/23 [facility] UADrugScrn Opiates Ur Negative^C X7NEG 07/23 [facility] UADrugScrn PCP Scrn, Ur Negative^C X7NEG 07/23 [facility] UADrugScrn THC, Ur Negative^C X7NEG 07/23 [facility] UADrugScrn Tricyclic Scr, Ur Negative^C X7NEG 07/23 . [facility] Method Instrument ^Instrumen t 07/23 [facility] Interp URINE DRUG ABUSE SCREEN THRESHOLD LIMITS ARE FOLLOWS ------ Amphetamin es 1000 ng/mL Benzodiaze pines 200 ng/mL Cocaine Metabolite 300 ng/mL Opiates 300 ng/mL Barbiturat es 200 ng/mL Tetrahydro cannibinol (THC) 50 ng/mL Phencyclid ine (PCP) 25 ng/mL Tricyclic Antidepres sants 500 ng/mL Methadone 300 ng/mL NOTE: The above assays provide only preliminar y analytical results. If confirmati on or quantifica tion is needed, please request the specific assay(s) desired. Results are for medical purposes only. 07/23 [facility] UA Appearance Clear^COTY R Clear 07/23 [facility] UA Color Yellow^YEL LOW Yellow 07/23 [facility] Specific [place] 1.025 1.005 - 1.035 07/23 [facility] UpH 5.5^5.5 5.0 - 7.0 07/23 [facility] UBlood Negative^N EGATIVE Negative 07/23 [facility] UBilirubin Negative^N EGATIVE Negative 07/23 [facility] UGlucose Negative^N EGATIVE Negative 07/23 [facility] UKetones Negative^N EGATIVE Negative 07/23 [facility] ULeukocyte Esterase Negative^N EGATIVE Negative 07/23 [facility] UNitrite Negative^N EGATIVE Negative 07/23 [facility] UProtein Negative^N EGATIVE Negative 07/23 [facility] UA Urobilinogen 0.2^0.2 0.2 - 1.0 07/23 [facility] Liver Panel Protein, Total 7.5 6.0 - 8.0 07/23 [facility] Liver Panel Albumin 4.1 3.0 - 5.0 07/23 [facility] Liver Panel Alkphos 99 35 - 130 07/23 [facility] Liver Panel ALT 23 0 - 45 07/23 [facility] Liver Panel AST 28 0 - 40 07/23 [facility] Liver Panel Bili Total 1.3 0.2 - 1.2 07/23 H [facility] Liver Panel Bili Direct 0.2 0.0 - 0.3 07/23 [facility] Salicylate Salicylate Level <4 0 - 20 07/23 ANALGESIC.... ........ 5.0 - 10.0 mg/dL ANTI-INFLAMMA TORY.... 20.0 - 30.0 mg/dL Levels above 30 may be toxic [facility] Acetaminop hen Level Acetaminophe n Level <10 10 - 30 07/23 L Acetaminophen Ranges: Therapeutic: 10 - 30 mcg/mL Toxic 4 hr Post OD: > 150 mcg/mL Toxic 12 hr Post OD: > 50 mcg/mL To interpret levels after an overdose, the time of ingestion must be known. Serum half-life is the best predictor of the extent of possible hepatic injury. [facility] BASIC Sodium 140 136 - 146 07/23 [facility] BASIC Potassium 4.2 3.5 - 5.5 07/23 [facility] BASIC Chloride 105 98 - 110 07/23 [facility] BASIC CO2 28 24 - 32 07/23 [facility] BASIC Glucose Level 91 70 - 99 07/23 [facility] BASIC BUN 18 8 - 25 07/23 [facility] BASIC Creatinine 0.93 0.50 - 1.50 07/23 [facility] BASIC BUN/Library Consultant Ratio 19 8 - 24 07/23 [facility] BASIC Calcium 9.1 8.4 - 10.5 07/23 [facility] BASIC Anion Gap 11 6 - 17 07/23 The reported anion gap uses the calculation of (Na + K)-(Cl +CO2). [facility] BASIC eGFR Non- Am 95 07/23 [facility] BASIC eGFR Afr/Amer 115 07/23 Normal Reference: Greater than 60 mL/min/1.73m2 Chronic Kidney Disease Staging: The National Kidney Foundation criteria requires documentation of the GFR on two occasions at least 90 days apart. Stage 1 and 2 definitions REQUIRE correlations WITH the presence of Abnormal Urinalysis Sediment and/or Abnormal Radiographic findings. Stages are NOT defined by the GFR alone Stage 1: Kidney damage with normal or high GFR of 90 or greater Stage 2: Kidney damage with mild decrease in GFR of 60-89 Stage 3: Kidney damage with moderate decrease in GFR 30-59 Stage 4: Kidney damage with severe decrease in GFR 15-29 Stage 5: Kidney damage with GFR Less than 15 or on dialysis [facility] Ethanol Ethanol 41 <=5 07/23 H Blood Alcohol (Ethanol) Conversion Information: Multiply mg/dL X 0.001 to convert to G/L Examples: 100 mg/dL X 0.001 = 0.10 G/L 80 mg/dL X 0.001 = 0.08 G/L Note: [place] Legal Limit = 0.08 G/L [facility] Hemogram WBC 9.5 4.3 - 11.0 07/23 [facility] Hemogram RBC 4.15 4.40 - 5.90 07/23 L [facility] Hemogram Hgb 12.9 13.5 - 17.5 07/23 L [facility] Hemogram Hct 39.9 41.0 - 52.0 07/23 L [facility] Hemogram MCV 96.2 80.0 - 100.0 07/23 [facility] Hemogram MCH 31.1 25.0 - 35.0 07/23 [facility] Hemogram MCHC 32.3 31.0 - 37.0 07/23 [facility] Hemogram RDW 13.1 11.5 - 14.5 07/23 [facility] Hemogram Plt 187 150 - 400 07/23 [facility] Lipase Lipase 30 0 - 51 06/23 [facility] Liver Panel Protein, Total 6.9 6.0 - 8.0 06/23 [facility] Liver Panel Albumin 4.0 3.0 - 5.0 06/23 [facility] Liver Panel Alkphos 76 35 - 130 06/23 [facility] Liver Panel ALT 14 0 - 45 06/23 [facility] Liver Panel AST 19 0 - 40 06/23 [facility] Liver Panel Bili Total 0.9 0.2 - 1.2 06/23 [facility] Liver Panel Bili Direct 0.1 0.0 - 0.3 06/23 [facility] Salicylate Salicylate Level <4 0 - 20 06/23 ANALGESIC.... ........ 5.0 - 10.0 mg/dL ANTI-INFLAMMA TORY.... 20.0 - 30.0 mg/dL Levels above 30 may be toxic [facility] Acetaminop hen Level Acetaminophe n Level <10 10 - 30 06/23 L Acetaminophen Ranges: Therapeutic: 10 - 30 mcg/mL Toxic 4 hr Post OD: > 150 mcg/mL Toxic 12 hr Post OD: > 50 mcg/mL To interpret levels after an overdose, the time of ingestion must be known. Serum half-life is the best predictor of the extent of possible hepatic injury. [facility] BASIC Sodium 139 136 - 146 06/23 [facility] BASIC Potassium 3.7 3.5 - 5.5 06/23 [facility] BASIC Chloride 106 98 - 110 06/23 [facility] BASIC CO2 28 24 - 32 06/23 [facility] BASIC Glucose Level 96 70 - 99 06/23 [facility] BASIC BUN 9 8 - 25 06/23 [facility] BASIC Creatinine 0.84 0.50 - 1.50 06/23 [facility] BASIC BUN/Library Consultant Ratio 11 8 - 24 06/23 [facility] BASIC Calcium 8.7 8.4 - 10.5 06/23 [facility] BASIC Anion Gap 9 6 - 17 06/23 The reported anion gap uses the calculation of (Na + K)-(Cl +CO2). [facility] BASIC eGFR Non- Am 107 06/23 [facility] BASIC eGFR Afr/Amer 129 06/23 Normal Reference: Greater than 60 mL/min/1.73m2 Chronic Kidney Disease Staging: The National Kidney Foundation criteria requires documentation of the GFR on two occasions at least 90 days apart. Stage 1 and 2 definitions REQUIRE correlations WITH the presence of Abnormal Urinalysis Sediment and/or Abnormal Radiographic findings. Stages are NOT defined by the GFR alone Stage 1: Kidney damage with normal or high GFR of 90 or greater Stage 2: Kidney damage with mild decrease in GFR of 60-89 Stage 3: Kidney damage with moderate decrease in GFR 30-59 Stage 4: Kidney damage with severe decrease in GFR 15-29 Stage 5: Kidney damage with GFR Less than 15 or on dialysis [facility] Ethanol Ethanol 38 <=5 06/23 H Blood Alcohol (Ethanol) Conversion Information: Multiply mg/dL X 0.001 to convert to G/L Examples: 100 mg/dL X 0.001 = 0.10 G/L 80 mg/dL X 0.001 = 0.08 G/L Note: [place] Limit = 0.08 G/L [facility] UADrugScrn Amphetamines Ur Negative^C X7NEG 06/23 [facility] UADrugScrn Barbiturate Ur Negative^C X7NEG 06/23 [facility] UADrugScrn Benzodiazepi ne Ur Negative^C X7NEG 06/23 [facility] UADrugScrn Cocaine Ur Negative^C X7NEG 06/23 [facility] UADrugScrn UMethadone Scr Negative^C X7NEG 06/23 [facility] UADrugScrn Opiates Ur Negative^C X7NEG 06/23 [facility] UADrugScrn PCP Scrn, Ur Negative^C X7NEG 06/23 [facility] UADrugScrn THC, Ur Negative^C X7NEG 06/23 [facility] UADrugScrn Tricyclic Scr, Ur Negative^C X7NEG 06/23 . [facility] UADrugScrn DrgScrn Method Instrument ^Instrumen t 06/23 [facility] Interp URINE DRUG ABUSE SCREEN THRESHOLD LIMITS ARE FOLLOWS ------ Amphetamin es 1000 ng/mL Benzodiaze pines 200 ng/mL Cocaine Metabolite 300 ng/mL Opiates 300 ng/mL Barbiturat es 200 ng/mL Tetrahydro cannibinol (THC) 50 ng/mL Phencyclid ine (PCP) 25 ng/mL Tricyclic Antidepres sants 500 ng/mL Methadone 300 ng/mL NOTE: The above assays provide only preliminar y analytical results. If confirmati on or quantifica tion is needed, please request the specific assay(s) desired. Results are for medical purposes only. 06/23 [facility] CBC w/Diff* WBC 4.5 4.3 - 11.0 06/23 [facility] CBC w/Diff* RBC 3.86 4.40 - 5.90 06/23 [facility] CBC w/Diff* Hgb 12.3 13.5 - 17.5 06/23 [facility] CBC w/Diff* Hct 37.6 41.0 - 52.0 06/23 [facility] CBC w/Diff* MCV 97.3 80.0 - 100.0 06/23 [facility] CBC w/Diff* MCH 31.9 25.0 - 35.0 06/23 [facility] CBC w/Diff* MCHC 32.8 31.0 - 37.0 06/23 [facility] CBC w/Diff* RDW 13.0 11.5 - 14.5 06/23 [facility] CBC w/Diff* Plt 182 150 - 400 06/23 [facility] CBC w/Diff* Neuts 50 36 - 76 06/23 [facility] CBC w/Diff* Lymphs 36 20 - 45 06/23 [facility] CBC w/Diff* Monos. 8 3 - 12 06/23 [facility] CBC w/Diff* Eos. 6 0 - 5 06/23 H [facility] CBC w/Diff* Baso. 1 0 - 1 06/23 [facility] CBC w/Diff* ABS Neut 2.2 1.3 - 7.4 06/23 [facility] CBC w/Diff* ABS Lymph 1.6 0.7 - 3.1 06/23 [facility] CBC w/Diff* ABS [place] 0.3 0.2 - 0.9 06/23 [facility] CBC w/Diff* ABS Eos 0.2 0.0 - 0.4 06/23 [facility] CBC w/Diff* CBC Scan Auto Diff^Auto Diff 06/23 [facility] *Diff Auto Neut% 60.5 37.0 - 75.0 01/05 [facility] *Diff Auto Lymph% 26.3 20.0 - 40.0 01/05 [facility] *Diff Auto [place]% 10.3 3.0 - 11.0 01/05 [facility] *Diff Auto Eos% 2.2 0.0 - 10.0 01/05 [facility] *Diff Auto Baso% 0.7 0.0 - 1.5 01/05 [facility] *Diff Auto ABS Neut 3.1 1.9 - 8.0 01/05 [facility] *Diff Auto ABS Lymph 1.3 0.9 - 5.2 01/05 [facility] *Diff Auto ABS [place] 0.5 0.2 - 1.0 01/05 [facility] *Diff Auto ABS Eos 0.1 0.0 - 0.8 01/05 [facility] *Diff Auto ABS Baso 0.0 0.0 - 0.2 01/05 [facility] *Hemogram WBC Instr 5.1 01/05 [facility] *Hemogram WBC 5.1 5.0 - 11.0 01/05 [facility] *Hemogram RBC 4.04 4.60 - 6.20 01/05 [facility] *Hemogram Hgb 12.6 14.0 - 18.0 01/05 [facility] *Hemogram Hct 38.8 42.0 - 52.0 01/05 [facility] *Hemogram MCV 96.1 80.0 - 97.0 01/05 [facility] *Hemogram MCH 31.2 27.0 - 31.0 01/05 [facility] *Hemogram MCHC 32.5 32.0 - 37.0 01/05 [facility] *Hemogram RDW 12.6 11.0 - 16.0 01/05 [facility] *Hemogram Plt 206 140 - 400 01/05 [facility] Acetaminop hen Level Acetaminophe n Level <3.0 10.0 - 30.0 01/05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 Social history: Alcohol use, Family/social situation: Homeless. Physical Examination Vital Signs Vital-Signs 01/16/16 23:34 PST Pain Intensity 0 Pain Scale Used Numeric Rating Scale Temperature PO 36.5 deg C Heart Rate 91 bpm NIBP Systolic 124 mm Hg NIBP Diastolic 82 mm Hg Resp Rate (Monitor) 18 Breaths/Min SPO2 94 % Oxygen Amount Room air . O2 Saturation is low on Room Air. General: Alert, no acute distress. Skin: Warm, dry. Ears, nose, mouth and throat: Oral mucosa moist, no pharyngeal erythema or exudate. Neck: Trachea midline. Cardiovascular: Regular rate and rhythm, Normal peripheral perfusion, No edema. Respiratory: Lungs are clear to auscultation, respirations are non-labored, breath sounds are equal. Gastrointestinal: Soft, Nontender, Non distended, Normal bowel sounds. Neurological: Alert and oriented to person, place, time, and situation, No focal neurological deficit observed. Medical Decision Making Differential Diagnosis: alcohol abuse, medication noncompliance, malingering, bipolar disorder. Rationale: Patient has been drinking, he states that he has had thoughts of hurting himself. He states that he has been drinking today. He denies any significant plan. He does have a history of bipolar disorder. He was medically cleared when sober, MAT team evaluated patient and was cleared for outpatient follow up with prescriptions of his psychatric medications. . Documents reviewed: Emergency department records (12/30/2015 for bipolar disorder). Orders Launch Order Profile (Selected) Inpatient Orders Ordered Consult to Drywall Taper: Sitter: Suicidal Ideation/Suicidal Attempts: Suicide Precautions: Urine Dipstick POC Testing: Completed Acetaminophen Level: Alcohol Level: CBC w/o Diff: CMP (BMP + ALB, Tot Prot, Bili, CA, Alk Phos, ALT, AST): Salicylate Level: Urine Drug Screen: . Results review: Lab results : Laboratory 01/16/16 23:45 PST DrugScrn Interp 01/16/16 23:55 PST WBC 6.2 K/uL RBC 4.03 million/uL L Hgb 12.8 gm/dL L Hct 39.2 % L MCV 97.2 fL MCH 31.6 pg MCHC 32.5 gm/dL RDW 12.2 % Plt 215 K/uL Sodium 136 mmol/L Potassium 3.7 mmol/L Chloride 99 mmol/L CO2 28 mmol/L Anion Gap 13 mmol/L Glucose Level 87 mg/dL BUN 19 mg/dL Creatinine 1.01 mg/dL BUN/Library Consultant Ratio 19 eGFR Non- Am 86 mL/min/1.73m2 NA eGFR Afr/Amer 104 mL/min/1.73m2 NA Calcium 9.2 mg/dL Corrected Calcium 9.0 mg/dL Protein, Total 7.7 gm/dL Albumin 4.3 gm/dL Bili Total 0.6 mg/dL ALT 37 IU/L AST 27 IU/L Alkphos 78 IU/L Acetaminophen Level <10 mcg/mL L Salicylate Level <4 mg/dL Ethanol 140 mg/dL H 01/16/16 23:45 PST Amphetamines Ur Positive Barbiturate Ur Negative Benzodiazepine Ur Negative Cocaine Ur Negative UMethadone Scr Negative Opiates Ur Negative PCP Scrn, Ur Negative THC, Ur Negative Tricyclic Scr, Ur Negative DrgScrn Method Instrument . Reexamination/ Reevaluation Time: 01/17/16 06:00:00 . Course: progressing as expected. Assessment: Patient was evaluated by MAT team after medically cleared and was cleared for discharged with presciptions for his psychiatric medications. . Impression and Plan Alcohol intoxication (RUL39-ZL F10.129, Discharge, Medical) Psychiatric illness (DTY58-DI F99, Discharge, Medical) Medication therapy changed (IEO29-VO Z79.899, Discharge, Medical) Plan Condition: Stable. Disposition: Medically cleared. Prescriptions: Applied DNA Sciencess List (Selected) Prescriptions Prescribed QUEtiapine 100 mg oral tablet: 1 Tab, PO, qHS, 30 Tab escitalopram 10 mg oral tablet: 1 Tab, PO, qHS, 30 Tab. Patient was given the following educational materials: Alcohol Intoxication. Counseled: Patient, Regarding diagnosis, Regarding diagnostic results, Patient indicated understanding of instructions. Notes: This document was transcribed by emily Allen for Karan Garcia M.D. Disclaimer: All medical record entries made by the scribe were at my direction. I have reviewed the chart and agree that the record and accurately reflects my person performance of the history, physical exam, medical decision making, and the emergency department course for this patient. I have also personally directed, reviewed, and agree with discharge instructions and disposition. Provider name: Karan Garcia M.D. . Electronically Signed By: Karan Garcia MD On 01/30/16 18:22 Co Signature By: Modify Signature By: Kurt Allen On 01/17/16 02:10 01/17/2016 [facility] ED Physician Notes Patient: NORI ARSHAD (M) (M) Age: 30 years Sex: M : 83 Associated Diagnoses: None Author: Macy Mckeon MD Basic Information Time seen: Date and time 12/29/15 00:46:00. History source: Patient. Arrival mode: Walking. History limitation: None. History of Present Illness The patient presents with psychiatric problem. Patient is a 30 year old male with a history of bipolar disorder who presents to the ED with complaints of suicidal and homicidal ideations. He reports that he was seen at [facility] 2 days ago for depression and medication noncompliance. He states that he is not taking his medications for his bipolar disorder and hears voices intermittently. . Character of symptoms suicidal thoughts. Self injury: none. Risk factors consist of suicide risk, homicide risk and non-compliance. Prior episodes: frequent. Review of Systems Constitutional symptoms: Negative except as documented in HPI. Skin symptoms: Negative except as documented in HPI. Eye symptoms: Negative except as documented in HPI. ENMT symptoms: Negative except as documented in HPI. Respiratory symptoms: Negative except as documented in HPI. Cardiovascular symptoms: Negative except as documented in HPI. Gastrointestinal symptoms: Negative except as documented in HPI. Genitourinary symptoms: Negative except as documented in HPI. Musculoskeletal symptoms: Negative except as documented in HPI. Neurologic symptoms: Negative except as documented in HPI. Psychiatric symptoms: Depression, suicidal, homicidal, hallucinations. Past Medical/ Family/ Social History Medical history: All Problems (Selected) Bipolar 1 disorder / [id number] / Confirmed HIV disease / [id number] / Confirmed. Surgical history: Negative. Social history: Alcohol use: Occasionally, Tobacco use: Denies, Drug use: Denies. Physical Examination Vital Signs Vital-Signs 12/28/15 23:46 PST Pain Intensity 10 Pain Scale Used Numeric Rating Scale Temperature Temporal Artery 36.5 deg C Heart Rate 91 bpm NIBP Systolic 130 mm Hg NIBP Diastolic 73 mm Hg Resp Rate (Monitor) 16 Breaths/Min SPO2 96 % Oxygen Amount Room air . oxygen saturation is normal on room air. General: Alert, no acute distress. Skin: Warm, pink, no rash. Head: Normocephalic. Neck: Supple, no tenderness. Eye: Pupils are equal, round and reactive to light, extraocular movements are intact, normal conjunctiva. Ears, nose, mouth and throat: Tympanic membranes clear. Cardiovascular: Regular rate and rhythm, No murmur, No edema. Respiratory: Lungs are clear to auscultation, respirations are non-labored, breath sounds are equal. Chest wall: No tenderness, No deformity. Back: Nontender, Normal range of motion. Musculoskeletal: Normal ROM, normal strength, no deformity. Gastrointestinal: Soft, Nontender, Non distended, Normal bowel sounds. Neurological: Alert and oriented to person, place, time, and situation, No focal neurological deficit observed, CN II-XII intact, normal motor observed, normal speech observed. Lymphatics: No lymphadenopathy. Psychiatric: Cooperative, Mood and affect: drowsy but easily aroused, answers questions appropriately . Medical Decision Making Differential Diagnosis: Depression, suicide risk, bipolar disorder, hallucination. Rationale: Patient with a hx of bipolar disorder who present with SI/HI. He has no plan. He has no specific HI directed at a person.He is very vague. The pt was to have labs done. He eloped. PD was notified.. Documents reviewed: Prior records (LAST ADMITTED: 12/21/2015 DISCHARGED: 12/24/2015 DIAGNOSIS: Major depressive disorder, severe, recurrent. Alcohol abuse.). Orders Launch Order Profile (Selected) Inpatient Orders Ordered Consult to Drywall Taper: Fall Risk Alert: Sitter: Suicidal Ideation/Suicidal Attempts: Suicide Precautions: Ordered (Dispatched) Toxicology Drug Screen Urine: Canceled Acetaminophen Level: CBC w/Diff* (man diff if indicated): CMP (BMP + ALB, Tot Prot, Bili, CA, Alk Phos, ALT, AST): Ethanol Level: Salicylate Level: . Impression and Plan Bipolar disease, chronic (ACK53-DC F31.9, Working, Medical) Plan Disposition: Eloped. Notes: This document was transcribed by emily Cosme for Dr. Macy Mckeon MD Disclaimer: All medical record entries made by the scribe were at my direction. I have reviewed the chart and agree that the record accurately reflects my personal performance of the history, physical exam, medical decision making, and the emergency department course for this patient. I have also personally directed, reviewed, and agree with the discharge instructions and disposition. Physician Name: Macy Mckeon MD . Electronically Signed By: Macy Mckeon MD On 01/23/16 07:59 Co Signature By: Modify Signature By: Shirley Cosme On 12/29/15 01:22 12/29/2015 [facility] QUEtiapine 100 mg Tab 100 12/24/2015 [facility] escitalopram 10 mg Tab 10 12/24/2015 [facility] risperiDONE 2mg disint Tab 4 12/22/2015 [facility] zolpidem 5 mg Tab 5 12/22/2015 [facility] OLANZapine 10 mg Tab 10 12/21/2015 [facility] LORazepam 1 mg Tab 1 12/21/2015 [facility] ED Physician Notes Patient: NORI ARSHAD (M) (M) Age: 30 years Sex: M : 83 Associated Diagnoses: None Author: Carson Rodriguez PA-C Basic Information Time seen: Date and time 12/20/15 20:25:00. History source: Patient. Arrival mode: Walking. History limitation: None. Additional information: Chief Complaint (ST) Chief Complaint ED: 'I thought of hurting myself' 12/20/15 18:27. History of Present Illness The patient presents with a psychiatric problem. Patient is a 30 year old male with a history of bipolar disorder who presents to the ED with suicidal ideations stating that he 'might hurt himself.' Patient was recently diagnosed with HIV and states that he is still in shock. He denies any suicide attempts or specific plans, except for stating that he has thought about slicing his throat. He reports he has stopped taking his medications and that he vomited earlier. Denies chest pain, diarrhea, shortness of breath and reports he feels fine physically. . The onset was just prior to arrival. The course/duration of symptoms is constant. Character of symptoms suicidal thoughts. Risk factors consist of suicide risk. Associated symptoms: vomiting. Review of Systems Gastrointestinal symptoms: Vomiting. Psychiatric symptoms: suicidal ideations. Additional review of systems information: All other systems reviewed and otherwise negative. Health Status Allergies: Allergic Reactions (All) NKA. Medications: Include Documented Meds (Selected) Inpatient Medications Ordered Ativan: 1 mg, PO, once, PRN: Anxiety ZyPREXA: 10 mg, PO, qDay Prescriptions Prescribed SEROquel 200 mg oral tablet: 1 Tab, PO, qHS, 30 Tab ZyPREXA 15 mg oral tablet: 1 Tab, PO, qHS, 14 Tab ibuprofen 600 mg oral tablet: 1 Tab, PO, QID, 20 Tab, PRN: for pain risperiDONE 4 mg oral tablet: 1 Tab, PO, Daily, 30 Tab Documented Medications Documented Ambien: PO Suspended SEROquel: PO. Past Medical/ Family/ Social History Medical history: All Problems Bipolar 1 disorder / [id number] / Confirmed. Surgical history: Negative. Social history: Alcohol use: Regularly, Tobacco use: Denies, Drug use: Denies. Physical Examination Vital Signs Vital-Signs 12/20/15 19:23 PST Glucose Level 94 mg/dL 12/20/15 18:27 PST Pain Intensity 0 Pain Scale Used Numeric Rating Scale Temperature Temporal Artery 37.1 deg C Heart Rate 80 bpm NIBP Systolic 127 mm Hg NIBP Diastolic 84 mm Hg Resp Rate (Monitor) 20 Breaths/Min SPO2 99 % . oxygen saturation is normal on room air. General: Alert, no acute distress. Skin: Warm, dry, no rash. Head: Normocephalic, atraumatic. Neck: Supple, no tenderness. Eye: Pupils are equal, round and reactive to light, extraocular movements are intact, normal conjunctiva. Ears, nose, mouth and throat: Oral mucosa moist, no pharyngeal erythema or exudate. Cardiovascular: Regular rate and rhythm, No murmur, Normal peripheral perfusion, No edema. Respiratory: Lungs are clear to auscultation, respirations are non-labored, breath sounds are equal, Symmetrical chest wall expansion. Gastrointestinal: Soft, Nontender, Non distended. Back: Nontender, Normal range of motion. Musculoskeletal: Normal ROM, normal strength. Neurological: Alert and oriented to person, place, time, and situation, No focal neurological deficit observed, CN II-XII intact, normal motor observed, normal speech observed. Lymphatics: No lymphadenopathy. Psychiatric: Cooperative, appropriate mood and affect. Medical Decision Making Differential Diagnosis: Depression, suicide risk, bipolar disorder, alcohol intoxication. Documents reviewed: Emergency department records (last seen in ED on 11/30/2015 for chest pain). Orders Launch Order Profile (Selected) Inpatient Orders Ordered Add On Lab: Consult to Drywall Taper: Regular Diet: Sitter: Suicidal Ideation/Suicidal Attempts: Suicide Precautions: Urine Dipstick POC Testing: ZyPREXA: 10 mg, PO, qDay Completed Alcohol Level: Ativan: 1 mg, PO, once, PRN: Anxiety BMP (Lytes, Glucose, Bun, Creat, and CA): Blood Count: Drug Abuse Screen Urine: Salicylate Level: Tylenol Level: . Results review: Lab results : Laboratory 12/21/15 01:40 PST DrugScrn Interp Amphetamines Ur Negative Barbiturate Ur Negative Benzodiazepine Ur Negative Cocaine Ur Negative UMethadone Scr Negative Opiates Ur Negative PCP Scrn, Ur Negative THC, Ur Negative Tricyclic Scr, Ur Negative DrgScrn Method Instrument 12/20/15 19:23 PST WBC 6.4 K/uL RBC 4.34 million/uL L Hgb 13.7 gm/dL Hct 42.2 % MCV 97.4 fL MCH 31.7 pg MCHC 32.5 gm/dL RDW 12.8 % Plt 237 K/uL Sodium 140 mmol/L Potassium 4.4 mmol/L Chloride 103 mmol/L CO2 30 mmol/L Anion Gap 11 mmol/L Glucose Level 94 mg/dL BUN 14 mg/dL Creatinine 1.10 mg/dL BUN/Library Consultant Ratio 13 eGFR Non- Am 78 mL/min/1.73m2 NA eGFR Afr/Amer 94 mL/min/1.73m2 NA Calcium 9.4 mg/dL Acetaminophen Level <10 mcg/mL L Salicylate Level <4 mg/dL Ethanol 81 mg/dL H . Impression and Plan Suicidal ideation (JGS77-YR R45.851, Working, Medical) Bipolar disorder (NVW71-YU F31.9, Working, Medical) Plan Condition: Stable. Disposition: Medically cleared. Counseled: Patient, Regarding diagnosis, Regarding diagnostic results, Regarding treatment plan, Patient indicated understanding of instructions. Notes: This document was transcribed by emily Smith for STEVAN Skinner Disclaimer: All medical record entries made by the scribe were at my direction. I have reviewed the chart and agree that the record accurately reflects my personal performance of the history, physical exam, medical decision making, and the emergency department course for this patient. I have also personally directed, reviewed, and agree with the discharge instructions and disposition. Notes: Any imaging studies were interpreted by a radiologist, or they were interpreted jointly by me and the supervising physician. Any EKG was inspected by me, but interpreted by the supervising physician. Supervising Physician: Dr. Kelvin Ibarra MD. Electronically Signed By: Carson Rodriguez PA-C On 12/22/15 07:37 Co Signature By: Kelvin Ibarra MD On 12/22/15 07:38 Alcon Smith Modify Signature By: Alcon Smith On 12/20/15 21:11 12/21/2015 [facility] ED Physician Notes Patient: NORI ARSHAD (M) (M) Age: 30 years Sex: M : [birth year] Associated Diagnoses: None Author: Devon Kimball MD Basic Information Time seen: Provider Initial Contact Time 12/20/2015 19:06 . History source: Patient. Arrival mode: Walking. History limitation: None. Additional information: Chief Complaint (ST) Chief Complaint ED: 'I thought of hurting myself' 02/08/16 18:27. History of Present Illness The patient presents with psychiatric problem. 30 year old male presents with suicidal ideation without a plan. States he just found out he has HIV. Denies vomiting, cough, or shortness of breath. . Review of Systems Psychiatric symptoms: Suicidal. Health Status Allergies: Allergic Reactions (Selected) NKA. Medications: Include Documented Meds (Selected) Prescriptions Prescribed SEROquel 200 mg oral tablet: 1 Tab, PO, qHS, 30 Tab ZyPREXA 15 mg oral tablet: 1 Tab, PO, qHS, 14 Tab ibuprofen 600 mg oral tablet: 1 Tab, PO, QID, 20 Tab, PRN: for pain risperiDONE 4 mg oral tablet: 1 Tab, PO, Daily, 30 Tab Documented Medications Documented Ambien: PO Suspended SEROquel: PO. Past Medical/ Family/ Social History Medical history: All Problems Bipolar 1 disorder / [id number] / Confirmed. Surgical history: Negative. Social history: Alcohol use: Occasionally, Tobacco use: Denies, Drug use: Denies. Physical Examination Vital Signs Vital-Signs 12/20/15 18:27 PST SPO2 99 % Heart Rate 80 bpm NIBP Diastolic 84 mm Hg NIBP Systolic 127 mm Hg Resp Rate (Monitor) 20 Breaths/Min Temperature Temporal Artery 37.1 deg C Pain Intensity 0 Pain Scale Used Numeric Rating Scale . Measurements 12/20/15 18:27 PST Drug Calc Weight (kg) 72.7 kg BMI 23.21 Height 177 cm . SPO2 12/20/15 18:27 PST SPO2 99 % . O2 sat on RA is normal. Medical Decision Making Documents reviewed: Emergency department records (last seen in the ED on 11/30/15 for Chest pain). Orders Launch Order Profile (Selected) Inpatient Orders Ordered Consult to Drywall Taper: Sitter: Suicidal Ideation/Suicidal Attempts: Suicide Precautions: Urine Dipstick POC Testing: Ordered (Dispatched) Alcohol Level: BMP (Lytes, Glucose, Bun, Creat, + CA): Blood Count: Drug Abuse Screen Urine: . Impression and Plan Plan Counseled: Patient, Regarding treatment plan, Patient indicated understanding of instructions. Notes: This document was transcribed by emily Wheat for Dr. Devon Kimball Disclaimer: All medical record entries made by the scribe were at my direction. I have reviewed the chart and agree that the record accurately reflects my personal performance of the history, physical exam, medical decision making, and the emergency department course for this patient. I have also personally directed, reviewed, and agree with the discharge instructions and disposition. Provider Name: Devon Kimball MD The above information is a Provider at Triage Exam. See further documentation by ED Physician, PA or ENGINEERING DOCUMENTATION SPECIALIST. Independent Findings: suicidal ideation. Electronically Signed By: Devon Kimball MD On 12/20/15 20:10 Co Signature By: Modify Signature By: Maryuri Wheat On 12/20/15 19:09 12/21/2015 [facility] ED Physician Notes Patient: NORI ARSHAD (M) (M) Age: 30 years Sex: M : [birth year] Associated Diagnoses: None Author: Satish Apodaca MD Basic Information Time seen: Provider Initial Contact Time 11/30/2015 10:19. History source: Patient, EMS. Arrival mode: Ambulance. History limitation: None. Additional information: Chief Complaint (ST) No results found.. History of Present Illness The patient presents with chest pain. Patient is a 30 year old male with no significant medical history, who presents to the ED via ambulance with complaints of intermittent 'squeezing' chest discomfort since this morning. EMS gave adult dose of Aspirin en route and patient reports relief of symptoms now. Patient reports he has suicidal ideation, however, with no plan. He also complains of right wrist pain since yesterday. He denies any history of cardiac issues. He denies any pain now.. The onset was just prior to arrival. The course/duration of symptoms is Intermittent. Radiating pain: none. The character of symptoms is Squeezing . Prior episodes: none. Review of Systems Cardiovascular symptoms: Chest pain, intermittent. Musculoskeletal symptoms: right wrist pain. Additional review of systems information: All other systems reviewed and otherwise negative. Health Status Allergies: Allergic Reactions (Selected) NKA. Past Medical/ Family/ Social History Medical history Psychiatric: bipolar. Social history: Alcohol use: Regularly, Tobacco use: Denies, Drug use: Denies. Physical Examination Vital Signs Vital-Signs 11/29/15 06:53 PST Heart Rate 74 bpm NIBP Systolic 117 mm Hg NIBP Diastolic 68 mm Hg Resp Rate (Monitor) 18 Breaths/Min SPO2 100 % 11/29/15 02:21 PST Pain Intensity 3 Pain Intensity 3 Pain Scale Used Numeric Rating Scale Pain Scale Used Numeric Rating Scale 11/29/15 01:51 PST Pain Intensity 10 Pain Scale Used Numeric Rating Scale 11/29/15 00:38 PST Pain Intensity 10 Pain Scale Used Numeric Rating Scale Temperature PO 35.7 deg C L Heart Rate 74 bpm NIBP Systolic 134 mm Hg NIBP Diastolic 85 mm Hg Resp Rate (Monitor) 18 Breaths/Min SPO2 100 % Oxygen Amount Room air . Oxygen Saturation Normal on Room Air. General: Alert, no acute distress. Skin: Warm. Head: Normocephalic, atraumatic. Neck: Supple. Eye: Normal conjunctiva. Cardiovascular: Regular rate and rhythm, No murmur, Normal peripheral perfusion. Respiratory: Lungs are clear to auscultation, respirations are non-labored, breath sounds are equal. Gastrointestinal: Soft, Nontender, Non distended. Musculoskeletal: Normal ROM. Neurological: Alert and oriented to person, place, time, and situation. Psychiatric: Abnormal / Psychotic thoughts: Suicidal (without plan). Medical Decision Making Documents reviewed: Emergency department records (11/29/2015 for right hand pain). Orders Launch Order Profile (Selected) Inpatient Orders Ordered Sitter: Ordered (Dispatched) Alcohol Level: Aspirin Level: CBC w/o Diff: CHEM - 8: Troponin I: Tylenol Level: Urine Drug Screen: Ordered (Exam Ordered) CXR 1 View Portable: . Electrocardiogram: Time 11/30/15 10:22:00, rate 73, normal sinus rhythm, No ST-T changes, no ectopy, normal WI + QRS intervals, EP Interp. Results review: Lab results : Laboratory 11/30/15 10:30 PST DrugScrn Interp 11/30/15 11:00 PST WBC 7.1 K/uL RBC 4.47 million/uL Hgb 14.3 gm/dL Hct 44.2 % MCV 98.9 fL MCH 31.9 pg MCHC 32.3 gm/dL RDW 13.5 % Plt 209 K/uL Sodium 139 mmol/L Potassium 4.7 mmol/L Chloride 103 mmol/L CO2 25 mmol/L Anion Gap 16 mmol/L Glucose Level 67 mg/dL L BUN 17 mg/dL Creatinine 0.95 mg/dL BUN/Library Consultant Ratio 18 eGFR Non- Am 92 mL/min/1.73m2 NA eGFR Afr/Amer 112 mL/min/1.73m2 NA Calcium 10.0 mg/dL Troponin I <20 ng/L Acetaminophen Level <10 mcg/mL L Salicylate Level 0 mg/dL Ethanol <5 mg/dL 11/30/15 10:30 PST Amphetamines Ur Negative Barbiturate Ur Negative Benzodiazepine Ur Negative Cocaine Ur Negative Opiates Ur Negative PCP Scrn, Ur Negative THC, Ur Negative Tricyclic Scr, Ur Negative DrgScrn Method Instrument UTCAScr Raw 129 NA 11/29/15 01:20 PST DrugScrn Interp 11/29/15 01:58 PST Acetaminophen Level <10 mcg/mL L Salicylate Level <4 mg/dL Ethanol <5 mg/dL 11/29/15 01:20 PST Amphetamines Ur Negative Barbiturate Ur Negative Benzodiazepine Ur Negative Cocaine Ur Negative UMethadone Scr Negative Opiates Ur Negative PCP Scrn, Ur Negative THC, Ur Negative Tricyclic Scr, Ur Negative DrgScrn Method Instrument . Radiology results: Radiologist's interpretation Name: NORI ARSHAD Account: [id number] : 1985 Result Date: 11/30/15 11:13 Verified By: Nav Sellers MD at 11/30/15 11:33 Report : XR Chest 1 View Portable Impressions:1. No acute pulmonary process.2. Nonenlarged cardiopericardial silhouette. 11/30/15 11:33 ++++++++++++++++++++++++++++++ +++++++++++++++++++++++++ . Notes: MDM - well appearing and non-toxic cp eval considering the above differential. cxr shows no widening of mediastinem, no evidence of pna or pneumothorax. Labs show no elevated cardiac enzymes. Less likely ACS. No emergency medical condition evident at this time. WIll initiate symptomatic therapy and recommend close outpatient follow-up. Pt without any prior risk factors for ACS and would be categorized as low risk., Patient is suspicious for malingering. When his durating of stay was completed and I had finished my evaluation with him, the patient left and stated he was 'just going to go to another hospital'. He has already been evaluated 3 times by social work and psychiatry in the last 3 days with similar assessments. . Reexamination/ Reevaluation Time: 11/30/15 12:10:00 . Notes: at bedside reevaluating patient and discussing diagnostic results. Discussed plan for discharge. Impression and Plan Chest pain (RLY03-XS R07.9, Discharge, Medical) Plan Condition: Stable. Disposition: Discharged: Time 11/30/15 12:14:00, to home. Patient was given the following educational materials: Chest Pain (Nonspecific). Follow up with: Call for follow up appointment Within 1 to 2 days; Return to ED if symptoms worsen Within As needed; Follow up with your usual provider Within 1 to 2 days. Counseled: Patient, Regarding diagnosis, Regarding diagnostic results, Regarding treatment plan, Patient indicated understanding of instructions. Notes: This document was transcribed by emily Pham and Santy Laureano for Satish Apodaca MD Disclaimer: All medical record entries made by the scribe were at my direction. I have reviewed the chart and agree that the record and accurately reflects my person performance of the history, physical exam, medical decision making, and the emergency department course for this patient. I have also personally directed, reviewed, and agree with discharge instructions and disposition. Physician Name: Satish Apodaca MD. Electronically Signed By: Satish Apodaca MD On 11/30/15 13:20 Co Signature By: Modify Signature By: Satish Apodaca MD On 11/30/15 13:20 11/30/2015 [facility] HYDROcod/acetamin (5/325) mg Tab 1 11/29/2015 [facility] ibuprofen 600 mg Tab 600 11/29/2015 [facility] ED Physician Notes Patient: NORI ARSHAD (M) (M) Age: 30 years Sex: M : [birth year] Associated Diagnoses: None Author: Gabbie Steve MD Basic Information Time seen: Provider Initial Contact Time 11/29/2015 00:50. History source: Patient. Arrival mode: Private vehicle. History limitation: None. Additional information: Chief Complaint (ST) Chief Complaint ED: SI 11/29/15 00:38. History of Present Illness The patient presents with psychiatric problem. Patient is a 30 year old male with a history of bipolar disorder who presents to the ED with depression and suicidal ideation onset earlier today. Patient reports that he has been compliant with his medications and is trying to be admitted to [facility]. Patient also reports right hand pain after hitting his hand against a trash can earlier today. Denies fever, cough, chest pain, nausea, vomiting, or diarrhea. Patient was discharged from the ED earlier today after being seen for similar symptoms. Had been put on psych hold for SI, then seen by telepsych and released. He is in ED very freqeutnly c/o SI. . Review of Systems Additional review of systems information: All systems were reviewed and are negative except as noted in HPI. Health Status Allergies: Allergic Reactions (All) NKA. Medications: Include Documented Meds (Selected) Documented Medications Documented Ambien: PO RisperDAL: PO SEROquel: PO ZyPREXA: . Past Medical/ Family/ Social History Medical history Psychiatric: attention deficit hyperactivity disorder. Medical history: All Problems Bipolar 1 disorder / [id number] / Confirmed. Surgical history: None ([id number]).. Social history: Alcohol use: Denies, Tobacco use: Denies, Family/social situation: Lives with parent(s). Physical Examination Vital Signs Vital-Signs 11/29/15 00:38 PST Oxygen Amount Room air SPO2 100 % Heart Rate 74 bpm NIBP Diastolic 85 mm Hg NIBP Systolic 134 mm Hg Resp Rate (Monitor) 18 Breaths/Min Temperature PO 35.7 deg C L Pain Intensity 10 Pain Scale Used Numeric Rating Scale 11/28/15 16:00 PST Oxygen Amount Room air SPO2 100 % Heart Rate 89 bpm NIBP Diastolic 68 mm Hg NIBP Systolic 118 mm Hg Resp Rate (Monitor) 19 Breaths/Min Temperature PO 36.8 deg C 11/28/15 08:07 PST Oxygen Amount Room air SPO2 100 % Heart Rate 100 bpm NIBP Diastolic 67 mm Hg NIBP Systolic 133 mm Hg Resp Rate (Monitor) 18 Breaths/Min Temperature PO 36.6 deg C . Measurements 11/29/15 00:38 PST Drug Calc Weight (kg) 90 kg BMI 28.73 Height 177 cm . Oxygen saturation: 100 %. SPO2 11/29/15 00:38 PST SPO2 100 % 11/28/15 16:00 PST SPO2 100 % 11/28/15 08:07 PST SPO2 100 % . Vitals and oxygen saturation were reviewed by me and are normal. O2 sat on RA is normal. General: Alert, no acute distress. Skin: Warm, dry, pink, nontender. Head: Normocephalic. Neck: Supple, trachea midline. Eye: Extraocular movements are intact, normal conjunctiva. Ears, nose, mouth and throat: Oral mucosa moist. Cardiovascular: Regular rate and rhythm, No murmur, Normal peripheral perfusion, No edema. Respiratory: Lungs are clear to auscultation, respirations are non-labored. Musculoskeletal: Normal ROM, normal strength, base of right thumb swollen and deformed, no redness or skin break. Chest wall Gastrointestinal: Soft, Nontender, Non distended, Normal bowel sounds, No organomegaly, Mass: Negative, Scars: Negative. Genitourinary Neurological: Alert and oriented to person, place, time, and situation, No focal neurological deficit observed. Psychiatric: Cooperative, coherent, approrpiate, not derpessed or delusional. Medical Decision Making Documents reviewed: Emergency department records (Last seen on 11/27/15 for Marijuana abuse and Suicidal ideations). Orders Launch Orders Admit/Transfer/Discharge: Discharge to (Order Processing): 11/29/15 06:03 PST, Now, Home or self care, Launch Orders Patient Care: Declan Wrap (Order Processing): 11/29/15 06:08 PST, done, launch Order Profile (Selected) Inpatient Orders Ordered Consult to Drywall Taper: English 5/325: 1 Tab, PO, x1 Sitter: Drywall Taper Consult: Suicidal Ideation/Suicidal Attempts: Suicide Precautions: ibuprofen: 600 mg, PO, x1 Ordered (Dispatched) Acetaminophen Level: Alcohol Level: Drug Abuse Screen Urine: Salicylate Level: Ordered (Exam Ordered) Hand XR Complete Rt: . Results review: Lab results : Laboratory 11/29/15 01:20 PST DrugScrn Interp 11/29/15 01:58 PST Acetaminophen Level <10 mcg/mL L Salicylate Level <4 mg/dL Ethanol <5 mg/dL 11/29/15 01:20 PST Amphetamines Ur Negative Barbiturate Ur Negative Benzodiazepine Ur Negative Cocaine Ur Negative UMethadone Scr Negative Opiates Ur Negative PCP Scrn, Ur Negative THC, Ur Negative Tricyclic Scr, Ur Negative DrgScrn Method Instrument , Interpretation Labs reviewed by me and there are no clinically significant abnormalities. Radiology results: Radiologist's interpretation Name: NORI ARSHAD Account: [id number] : 1985 Result Date: 11/29/15 01:19 Verified By: Colin Parker MD at 11/29/15 04:22 Report : XR Hand 3+ Views Rt IMPRESSION: 1. Subtle curvilinear lucency extending along the midshaft of the first metacarpal, only well seen on a single AP projection. Please correlate for pin point tenderness.2.Mild degenerative osseous changes. There is mild lateralsubluxation of the first metacarpal with respect to the carpalmetacarpal joint. Moderate osteoarthritis involving the firstcarpal metacarpal joint.Thank you for the opportunity to participate in the care of thispatient. If there are any questions about this report, pleasecall [phone]. 11/29/15 04:17 ++++++++++++++++++++++++++++++ +++++++++++++++++++++++++ . Notes: MEDICAL DECISION MAKING: Pt seen by MAT team Gabbie, she does not get sense that he is sucidial now, was cleared yesterday by telepsych, [facility] has seen him freqeuntly, [facility], has had outpt services set up many times, does not follow through. She is getting him appt at [facility]. He told me he banged hishand on trashcan yesterady, swellnig base of R thumb, I got xray it is subluxed, but seems possibly chronic. I went iwth lidocaine to try to numb it and reduce it, and then he said it has been like that for some time. I wrapped it in declan wrap, he was [place] intacat, and will put him on NSAIDS for it. Pt denies knowing what his current meds are, but says he had been on risperidone 6 mg QD before, and seroquel 500 mg qhs. Those doses are high, I vernon start on 4 mg risp, and 200 qhs seroquel for now. . Hand/finger x-ray findings: negative Reexamination/ Reevaluation Time: 11/29/15 05:55:00 . Notes: Discussed reduction of subluxation. Patient reports that his thumb has been as it appears for some time.. Impression and Plan Depression; Right hand pain Plan Condition: Improved. Disposition: Medically cleared, Discharged: Time 11/29/15 05:58:00, to home. Prescriptions: Launch RX Pharmacist Assistant Pharmacy: SEROquel 200 mg oral tablet (Prescribe): 1 Tab, PO, qHS, 30 Tab risperiDONE 4 mg oral tablet (Prescribe): 1 Tab, PO, Daily, 30 Tab, Launch RX Pharmacist Assistant Pharmacy: ibuprofen 600 mg oral tablet (Prescribe): 1 Tab, PO, QID, 20 Tab, PRN: for pain. Patient was given the following educational materials: Depression, Adult, Thumb Dislocation. Follow up with: Matt Dhillon Within 2 to 4 days; [facility] Please follow up at [facility] for your psychiatric care, and have someone check your medicines to see what you are really supposed to be on . I have written you these prescriptions, but you need to verify your medicines and doses. Take hte ibuprofen for your hand pain, and see the [facility] doctor, Dr Dhillon about your thumb. Notes: Transcribed by Emily Garner for Gabbie Steve MD Disclaimer: All medical record entries made by the scribe were at my direction. I have reviewed the chart and agree that the record accurately reflects my personal performance of the history, physical exam, medical decision making, and the emergency department course for this patient. I have also personally directed, reviewed, and agree with the discharge instructions and disposition. Physician Name: Dr. Gabbie Steve MD. Electronically Signed By: Gabbie Steve MD On 11/29/15 17:12 Co Signature By: Modify Signature By: Travis Garner On 11/29/15 01:04 11/29/2015 [facility] ED Physician Notes Patient: NORI ARSHAD (M) (M) Age: 30 years Sex: M : [birth year] Associated Diagnoses: None Author: Vanesa Siddiqui Basic Information Addendum: Time of addendum:: 11/28/15 10:12:00 , Assumed care from: Time 11/28/15 10:00:00, Pertinent history: Patient was placed on a 5150 due to suicidal ideation. He states that he plans on jumping into traffic and cutting himself. Marshal has been evaluated by MAT. Currently seeking placement at [facility]. Waiting for placement.. Medical Decision Making Documents reviewed: Emergency department records (11/27/15 for Marijuana abuse and Suicidal ideations). Orders Launch Order Profile (Selected) Inpatient Orders Ordered Discharge: . Notes: MDM: Patient presented to the ED yesterday for sucidal ideation. Patient was medically cleared, evaluated by MAT and then evaluated by Telepsych today. Dr. Gao states patient does not meet criteria for 5150 at this time and recommends discharging patient home with zyprexa. Mat gave patient dsicharge instructions with resources and numbers for [facility]. Patient stable, afebrile, non-toxic appearing. Patient cleared for outpatient management per Dr. Gao. Zyprexa prescribed. . Physical Examination General: Alert, no acute distress, Resting comfortably in bed. . Skin: Warm, dry, normal for ethnicity. Head: Normocephalic, atraumatic. Neck: Supple. Eye: Extraocular movements are intact. Ears, nose, mouth and throat: Oral mucosa moist. Cardiovascular: Regular rate and rhythm. Respiratory: Respirations are non-labored. Musculoskeletal: Normal ROM. Neurological: CN II-XII intact (grossly). Psychiatric: Cooperative. Reexamination/ Reevaluation Time: 11/28/15 10:12:00 . Vital signs results included from flowsheet : Vital-Signs 11/28/15 08:07 PST Temperature PO 36.6 deg C Heart Rate 100 bpm NIBP Systolic 133 mm Hg NIBP Diastolic 67 mm Hg Resp Rate (Monitor) 18 Breaths/Min SPO2 100 % Oxygen Amount Room air Notes: No complaints or acute needs at this time. . Impression and Plan Suicidal ideation, Resolved ([id number] R45.851, Discharge, Medical) Plan Condition: Stable. Disposition: Discharged: Time 11/28/15 18:42:00, to home. Prescriptions: [facility] Meds List (Selected) Prescriptions Prescribed ZyPREXA 15 mg oral tablet: 1 Tab, PO, qHS, 14 Tab. Patient was given the following educational materials: Suicidal Feelings, How to Help Yourself. Follow up with: Return to ED if symptoms worsen development of feeling like hurting yourself; Follow up with your usual provider. Counseled: Patient, Regarding diagnosis, Regarding diagnostic results, Regarding treatment plan, Regarding prescription, Patient indicated understanding of instructions. Notes: This document was transcribed by emily Guthrie Do for Vanesa Siddiqui PA-C. Disclaimer: All medical record entries made by the scribe were at my direction. I have reviewed the chart and agree that the record accurately reflects my personal performance of the history, physical exam, medical decision making, and the emergency department course for this patient. I have also personally directed, reviewed, and agree with the discharge instructions and disposition. Provider Name: Vanesa Siddiqui PA-C Supervising Physician: Earl Chang DO Any imaging studies were interpreted by a radiologist, or they were interpreted jointly by me and the supervising physician. Any EKG was inspected by me, but interpreted by the supervising physician. . Electronically Signed By: Vanesa Siddiqui On 12/02/15 19:03 Co Signature By: Earl Chang DO On 12/03/15 10:43 Modify Signature By: Jerri Rojas On 11/28/15 11:10 11/28/2015 [facility] risperiDONE 1 mg Tab 3 11/28/2015 [facility] OLANZapine 5 mg Tab 10 11/28/2015 [facility] ED Physician Notes Patient: NORI ARSHAD (M) (M) Age: 30 years Sex: M : 84 Associated Diagnoses: None Author: Abdullahi Tinoco PA-C Basic Information Time seen: Provider Initial Contact Time 11/27/2015 19:13 . History source: Patient. Arrival mode: Walking. History limitation: None. Additional information: Chief Complaint (ST) Chief Complaint ED: Suical Ideation. 'I will run into traffic or cut myself and bleed to ' as stated by pt. 11/27/15 18:51 , ED Triage Assessment: Calm and cooperative on this triage encounter. 11/27/15 18:51 . History of Present Illness The patient presents with psychiatric problem. Patient is a 30 year old male with history of bipolar disorder, presents to the ED with suicidal ideations, with thoughts of jumping into traffic and cutting himself. Patient has bee out of his medications for the last month, and that he is currently seeking placement into his [facility] psych [facility]. He denies any self harm today. The onset was gradual. The course/duration of symptoms is constant. Character of symptoms suicidal thoughts. Self injury: none. Review of Systems Constitutional symptoms: No fever, no chills, no sweats, no weakness, no fatigue. Skin symptoms: No rash, Eye symptoms: No pain, no discharge. ENMT symptoms: No sore throat, Respiratory symptoms: No shortness of breath, no cough. Cardiovascular symptoms: No chest pain, Gastrointestinal symptoms: No abdominal pain, no nausea, no vomiting, no diarrhea, no constipation. Genitourinary symptoms: No dysuria, no discharge. Musculoskeletal symptoms: No back pain, no Muscle pain, no Joint pain. Neurologic symptoms: No headache, no dizziness. Psychiatric symptoms: Suicidal. Hematologic/Lymphatic symptoms: Bleeding tendency negative, bruising tendency negative. Health Status Allergies: Allergic Reactions (Selected) NKA. Medications: Include Documented Meds (Selected) Documented Medications Documented Ambien: PO RisperDAL: PO SEROquel: PO ZyPREXA: . Past Medical/ Family/ Social History Medical history: All Problems Bipolar 1 disorder / [id number] / Confirmed. Surgical history: Negative. Social history: Alcohol use: Denies, Tobacco use: Denies, Drug use: Denies. Physical Examination Vital Signs Vital-Signs 11/27/15 18:51 PST Pain Intensity 0 Pain Scale Used Numeric Rating Scale Temperature Temporal Artery 37 deg C Heart Rate 86 bpm NIBP Systolic 138 mm Hg NIBP Diastolic 63 mm Hg Resp Rate (Monitor) 20 Breaths/Min SPO2 97 % . General: Alert, no acute distress. Skin: Warm, pink, moist Head: Normocephalic, atraumatic. Neck: Supple. Eye: Pupils are equal, round and reactive to light, extraocular movements are intact, normal conjunctiva. Ears, nose, mouth and throat: Tympanic membranes clear, oral mucosa moist, no pharyngeal erythema or exudate. Cardiovascular: Regular rate and rhythm, Normal peripheral perfusion. Respiratory: Lungs are clear to auscultation, respirations are non-labored, breath sounds are equal, Symmetrical chest wall expansion. Gastrointestinal: Soft, Nontender, Non distended. Back: Nontender, no step-offs, (-) CVA tenderness. Neurological: Alert and oriented to person, place, time, and situation, No focal neurological deficit observed, normal sensory observed, normal motor observed, normal speech observed. Psychiatric: Cooperative, appropriate mood and affect, normal judgment. Medical Decision Making Differential Diagnosis: Anxiety, depression, suicide risk, bipolar disorder, medication reaction. Documents reviewed: Emergency department records (10/29/15 for SI). Orders Launch Order Profile (Selected) Inpatient Orders Ordered Consult to Drywall Taper: RisperDAL: 3 mg, PO, x1 Sitter: Suicidal Ideation/Suicidal Attempts: Suicide Precautions: Urine Dipstick POC Testing: ZyPREXA: 10 mg, PO, x1 Completed Alcohol Level: BMP (Lytes, Glucose, Bun, Creat, and CA): CBC w/o Diff: Salicylate Level: Tylenol Level: UDS: . Results review: Lab results : Laboratory 11/27/15 19:29 PST DrugScrn Interp 11/27/15 19:40 PST WBC 8.3 K/uL RBC 3.99 million/uL L Hgb 12.7 gm/dL L Hct 38.6 % L MCV 96.9 fL MCH 31.8 pg MCHC 32.8 gm/dL RDW 13.3 % Plt 204 K/uL Sodium 136 mmol/L Potassium 3.8 mmol/L Chloride 96 mmol/L L CO2 28 mmol/L Anion Gap 16 mmol/L Glucose Level 79 mg/dL BUN 16 mg/dL Creatinine 1.15 mg/dL BUN/Library Consultant Ratio 14 eGFR Non- Am 74 mL/min/1.73m2 NA eGFR Afr/Amer 90 mL/min/1.73m2 NA Calcium 9.0 mg/dL Acetaminophen Level <10 mcg/mL L Salicylate Level <4 mg/dL Ethanol < 5 mg/dL 11/27/15 19:29 PST Amphetamines Ur Negative Barbiturate Ur Negative Benzodiazepine Ur Negative Cocaine Ur Negative UMethadone Scr Negative Opiates Ur Negative PCP Scrn, Ur Negative THC, Ur Positive Tricyclic Scr, Ur Negative DrgScrn Method Instrument . Reexamination/ Reevaluation Time: 11/27/15 22:26:00 . Notes: Patient is medically clear. Time: 11/28/15 01:32:00 . Notes: spoke with MAT team, patient will be placed on hold; patient has suicidal ideations and plans to kill himself. Impression and Plan Marijuana abuse (MQO25-YA F12.10, Discharge, Medical) Suicidal ideations (DZE22-CM R45.851, Discharge, Medical) Plan Disposition: Medically cleared, Patient care transitioned to: Earl Chang DO. Notes: This document was transcribed by emily Pablo for Abdullahi Tinoco PA-C Disclaimer: All medical record entries made by the scribe were at my direction. I have reviewed the chart and agree that the record accurately reflects my personal performance of the history, physical exam, medical decision making, and the emergency department course for this patient. I have also personally directed, reviewed, and agree with the discharge instructions and disposition. Provider Name: Abdullahi Tinoco PA-C Supervising Physician: Kelvin Ibarra MD Any imaging studies were interpreted by a radiologist, or they were interpreted jointly by me and the supervising physician. Any EKG was inspected by me, but interpreted by the supervising physician. Electronically Signed By: Abdullahi Tinoco PA-C On 12/23/15 01:44 Co Signature By: Kelvin Ibarra MD On 12/24/15 10:59 Natalie Pablo Modify Signature By: Natalie Pablo On 11/27/15 19:46 11/28/2015 [facility] QUEtiapine 100 mg Tab 100 11/15/2015 [facility] OLANZapine 5 mg Tab 10 11/15/2015 [facility] OLANZapine 10 mg/2 mL SW Inj 10 11/14/2015 [facility] ED Physician Notes Patient: NORI ARSHAD (M) (M) Age: 30 years Sex: M : [birth year] Associated Diagnoses: None Author: CHAN RUST MD Basic Information Time seen: Provider Initial Contact Time 11/10/2015 23:01. History source: Patient. Arrival mode: Walking. History limitation: None. Additional information: Chief Complaint (ST) Chief Complaint ED: suicidal thoughts x 11/10/15 22:27, ED Triage Assessment: since escalating today on seroquel, respirodol dailylives with mother nowwas in psych 11/10/15 22:27 . History of Present Illness The patient presents with suicidal thoughts. Patient is a 30 year old male, with a history of bipolar disorder on Seroquel, Risperdal, and Ambien, who presents to the emergency department with suicidal ideation with a plan of over dosing on pills. Patient states that he was recently seen in an ED in [place], [place] for psychiatric problems and is supposed to go back on November 12 for an appointment. Patient is requesting to 'be placed in a psych [facility] for the rest of my life'. States that he feels like killing himself 'a little bit' and states that he had a few beers today. Patient has a history of self harm by cutting his wrists and overdosing on medication. Denies any hallucinations or homicidal ideation. States that he has a place to live with his mother in [place] . The onset was chronic. The course/duration of symptoms is fluctuating in intensity. Character of symptoms suicidal thoughts. Self injury: none. Review of Systems Psychiatric symptoms: Suicidal. Additional review of systems information: All other systems reviewed and otherwise negative. Health Status Allergies: Allergic Reactions (All) NKA. Medications: Include Documented Meds (Selected) Documented Medications Documented Ambien: PO RisperDAL: PO SEROquel: PO ZyPREXA: . Past Medical/ Family/ Social History Medical history: All Problems Bipolar 1 disorder / [id number] / Confirmed. Surgical history: None (SNOMED CT [id number]).. Social history: Alcohol use: Regularly, Tobacco use: Regularly, Drug use: Denies. Physical Examination General: Alert, no acute distress. Vital-Signs 11/10/15 22:27 PST Pain Intensity 0 Pain Scale Used Numeric Rating Scale Temp Tympanic 36.8 deg C Heart Rate 93 bpm NIBP Systolic 158 mm Hg NIBP Diastolic 77 mm Hg Resp Rate (Monitor) 22 Breaths/Min H SPO2 96 % . O2 sat normal on room airSkin: Warm, dry, pink, no pallor, no rash Head: Normocephalic, atraumatic. Eye: Extraocular movements are intact, normal conjunctiva. Ears, nose, mouth and throat: Oral mucosa moist. Cardiovascular: Regular rate and rhythm, No murmur, Normal peripheral perfusion, No edema. Respiratory: Lungs are clear to auscultation, respirations are non-labored, breath sounds are equal, Symmetrical chest wall expansion. Musculoskeletal: Normal ROM, normal strength. Gastrointestinal: Soft, Nontender, Non distended. Neurological: Alert and oriented to person, place, time, and situation, No focal neurological deficit observed, CN II-XII intact, normal sensory observed, normal motor observed, normal speech observed, normal coordination observed. Psychiatric: Cooperative, appropriate mood + affect, normal judgment. Medical Decision Making Differential Diagnosis: Depression, suicide risk, alcohol intoxication, medication reaction, psychosis. Documents reviewed: Emergency department records (10/29/15 seen for Suicidal ideations). Orders Launch Order Profile (Selected) Inpatient Orders Ordered Consult to Drywall Taper: Nutrition Screen Alert: Patient at risk on Suicide/Self Harm Assessment: Reminder to document skin interventions: Sitter: Suicidal Ideation/Suicidal Attempts: Suicide Precautions: Ordered (Dispatched) Drug Abuse Screen Urine: Completed Alcohol Level: Aspirin Level: CBC w/o Diff: CMP (BMP + ALB, Tot Prot, Bili, CA, Alk Phos, ALT, AST): Tylenol Level: Urine Drug Screen: . Results review: Lab results : Laboratory 11/10/15 23:00 PST DrugScrn Interp 11/10/15 23:32 PST WBC 8.8 K/uL RBC 4.09 million/uL L Hgb 12.6 gm/dL L Hct 39.2 % L MCV 95.8 fL MCH 30.7 pg MCHC 32.0 gm/dL RDW 13.2 % Plt 237 K/uL Sodium 136 mmol/L Potassium 3.9 mmol/L Chloride 101 mmol/L CO2 27 mmol/L Anion Gap 12 mmol/L Glucose Level 83 mg/dL BUN 19 mg/dL Creatinine 1.17 mg/dL BUN/Library Consultant Ratio 16 eGFR Non- Am 73 mL/min/1.73m2 NA eGFR Afr/Amer 88 mL/min/1.73m2 NA Calcium 9.0 mg/dL Corrected Calcium 8.9 mg/dL Protein, Total 6.9 gm/dL Albumin 4.1 gm/dL Bili Total 1.5 mg/dL H ALT 39 IU/L AST 49 IU/L H Alkphos 67 IU/L Acetaminophen Level <10 mcg/mL L Salicylate Level <4 mg/dL Ethanol <5 mg/dL 11/10/15 23:00 PST Amphetamines Ur Negative Barbiturate Ur Negative Benzodiazepine Ur Negative Cocaine Ur Negative UMethadone Scr Negative Opiates Ur Negative PCP Scrn, Ur Negative THC, Ur Negative Tricyclic Scr, Ur Negative DrgScrn Method Instrument Color Urine Yellow Appearance Urine Clear Leukocytes Negative Nitrite Negative Urobilinogen Urine 1 mg/dl Protein Negative pH Urine 7 Blood Negative Specific Highland Urine 1.025 Ketones Urine Negative Bilirubin Negative Glucose Urine Negative . Reexamination/ Reevaluation Time: 11/10/15 23:45:00 . Notes: Patient is medically cleared at this time. Impression and Plan Plan Disposition: Medically cleared. Counseled: Patient, Regarding diagnosis, Regarding treatment plan, Patient indicated understanding of instructions. Notes: Transcribed by Emily Pa for Chan Rust MD Disclaimer: All medical record entries made by the scribe were at my direction. I have reviewed the chart and agree that the record accurately reflects my personal performance of the history, physical exam, medical decision making, and the emergency department course for this patient. I have also personally directed, reviewed, and agree with the discharge instructions and disposition. Physician Name: Chan Rust MD. Electronically Signed By: CHAN RUST MD On 11/21/15 17:11 Co Signature By: Modify Signature By: Oly Pa On 11/11/15 03:52 11/11/2015 [facility] ED Physician Notes Patient: NORI ARSHAD (M) (M) Age: 30 years Sex: M : [birth year] Associated Diagnoses: None Author: Gabbie Steve MD Basic Information Time seen: Provider Initial Contact Time 10/29/2015 14:54. History source: Patient. Arrival mode: Private vehicle. History limitation: None. Additional information: Chief Complaint (ST) Chief Complaint ED: C/O WANTS TO HURT HIMSELF AND OTHERS. PT REQUESTING TO BE SENT TO [facility] 10/29/15 14:44. History of Present Illness The patient presents with suicidal ideation. 30 year old male with history of depression presents to the ED for suicidal ideation.He has been out of his medication, including Risperidone, Seroquel, and Depakote, for about a month. He reports that he was thinking about hurting himself and another person, so he came to the ED to prevent his feelings from escalating. He reports he no longer feels homicidal. He denies any specific event today that started these feelings. No recent fever, cough, cold, chest pain, abdominal pain, nausea, vomiting or diarrhea. No PCP . Review of Systems Additional review of systems information: All systems were reviewed and are negative except as noted in HPI. Health Status Allergies: Allergic Reactions (All) NKA. Medications: Include Documented Meds (Selected) Documented Medications Documented RisperDAL: PO SEROquel: PO ZyPREXA: . Past Medical/ Family/ Social History Medical history: All Problems Bipolar 1 disorder / [id number] / Confirmed. Surgical history: None ([id number]).. Social history: Alcohol use: Regularly, Tobacco use: Denies, Drug use: Denies. Physical Examination Vital Signs Vital-Signs 10/29/15 14:44 PST SPO2 96 % Heart Rate 87 bpm NIBP Diastolic 63 mm Hg NIBP Systolic 120 mm Hg Resp Rate (Monitor) 18 Breaths/Min Tympanic Temp 36.7 deg C Pain Intensity 0 Pain Scale Used Numeric Rating Scale . Measurements 10/29/15 14:44 PST Drug Calc Weight (kg) 72.727 kg BMI 25.11 Height 170.18 cm . SPO2 10/29/15 14:44 PST SPO2 96 % . O2 sat is normal on room air. Vitals and oxygen saturation were reviewed by me and are normal. General: Alert, no acute distress. Skin: Warm, dry, pink, nontender. Head: Normocephalic. Neck: Supple, trachea midline, no tenderness. Eye: Extraocular movements are intact, normal conjunctiva. Ears, nose, mouth and throat: Oral mucosa moist. Cardiovascular: Regular rate and rhythm, No murmur, Normal peripheral perfusion, No edema. Respiratory: Lungs are clear to auscultation, respirations are non-labored. Back: Nontender, Normal range of motion. Musculoskeletal: Normal ROM, normal strength, no tenderness, no deformity. Chest wall Gastrointestinal: Soft, Nontender, Non distended, Normal bowel sounds, No organomegaly, Mass: Negative, Scars: Negative. Genitourinary Neurological: Alert and oriented to person, place, time, and situation, No focal neurological deficit observed. Psychiatric: Cooperative, oriented, cooperative, coherent. Medical Decision Making Differential Diagnosis: depression, psychosis, schizophrenia, bipolar disorder. Documents reviewed: Emergency department records (10-10-15 with complaint of psychiatric problem). Orders Launch Order Profile (Selected) Inpatient Orders Ordered Sitter: Suicide Precautions: Urine Dipstick POC Testing: Canceled Liver Function Panel: Completed Alcohol Level: Aspirin Level: Bilirubin Direct: Blood Count: CMP (BMP + ALB, Tot Prot, Bili, CA, Alk Phos, ALT, AST): Consult to Drywall Taper: Suicidal Ideation/Suicidal Attempts: Suicide Precautions: Tylenol Level: Urine Drug Screen: . Results review: Lab results : Laboratory 10/29/15 16:00 PST DrugScrn Interp 10/29/15 16:25 PST Color Urine Yellow Appearance Urine Clear Leukocytes Negative Nitrite Negative Urobilinogen Urine 0.2 mg/dl Protein Negative pH Urine 5.5 Blood Non-Hem. Trace Specific Highland Urine 1.025 Ketones Urine 5 mg/dL (Trace) Bilirubin 1+ (Small) Glucose Urine Negative 10/29/15 16:00 PST Amphetamines Ur Negative Barbiturate Ur Negative Benzodiazepine Ur Negative Cocaine Ur Negative UMethadone Scr Negative Opiates Ur Negative PCP Scrn, Ur Negative THC, Ur Negative Tricyclic Scr, Ur Negative DrgScrn Method Instrument 10/29/15 15:16 PST WBC 6.9 K/uL RBC 4.25 million/uL L Hgb 12.9 gm/dL L Hct 40.0 % L MCV 94.0 fL MCH 30.4 pg MCHC 32.3 gm/dL RDW 13.5 % Plt 224 K/uL Sodium 139 mmol/L Potassium 3.4 mmol/L L Chloride 104 mmol/L CO2 24 mmol/L Anion Gap 14 mmol/L Glucose Level 92 mg/dL BUN 12 mg/dL Creatinine 1.14 mg/dL BUN/Library Consultant Ratio 11 eGFR Non- Am 75 mL/min/1.73m2 NA eGFR Afr/Amer 91 mL/min/1.73m2 NA Calcium 8.9 mg/dL Corrected Calcium 8.7 mg/dL Protein, Total 7.0 gm/dL Albumin 4.2 gm/dL Bili Total 1.3 mg/dL H Bili Direct 0.2 mg/dL ALT 20 IU/L AST 24 IU/L Alkphos 78 IU/L Acetaminophen Level <10 mcg/mL L Salicylate Level <4 mg/dL Ethanol 53 mg/dL H , Interpretation Labs reviewed by me and there are no clinically significant abnormalities. Notes: MEDICAL DECISION MAKING: cleared for mat. SEen by MAT team at 9:pm, ptu on hold as cannot contract for ezequiel henson just at [facility] a couple of mos ago. Impression and Plan Suicidal ideations Plan Condition: Stable. Disposition: Medically cleared, Admit: for [facility] when bed availble. Counseled: Patient, Regarding treatment plan, Patient indicated understanding of instructions. Notes: This document was transcribed by emily Dunaway for Gabbie Steve MD Disclaimer: All medical record entries made by the scribe were at my direction. I have reviewed the chart and agree that the record and accurately reflects my person performance of the history, physical exam, medical decision making, and the emergency department course for this patient. I have also personally directed, reviewed, and agree with discharge instructions and disposition. Physician Name: Gabbie Steve MD. Electronically Signed By: Gabbie Steve MD On 10/30/15 07:55 Co Signature By: Modify Signature By: Fredi Dunaway On 10/29/15 15:29 10/29/2015 [facility] ED Physician Notes Patient: NORI ARSHAD (M) (M) Age: 30 years Sex: M : 84 Associated Diagnoses: None Author: Vanesa Siddiqui Basic Information Time seen: Provider Initial Contact Time 10/29/2015 14:54. History source: Patient. Arrival mode: Walking. History limitation: None. Additional information: Chief Complaint (ST) Chief Complaint ED: C/O WANTS TO HURT HIMSELF AND OTHERS. PT REQUESTING TO BE SENT TO [facility] 10/29/15 14:44. History of Present Illness The patient presents with suicidal ideation. 30 year old male with a history of bipolar disorder presents with suicidal ideation without plan for the past few days and is requesting psychiatric evaluation. Reports he has been experiencing increased stress but denies any homicidal ideation. States he is not currently anxious. Has been seen multiple times in the past for SI. Usually takes risperidone, but has run out. Reports regular alcohol and tobacco use. . The onset was a few days ago. The course/duration of symptoms is constant. Character of symptoms suicidal thoughts. Self injury: none. The exacerbating factor is increased stress. Risk factors consist of bipolar disorder, regular alcohol use and out of psychiatric medication. Prior episodes: multiple ED visits. Therapy today: none. Associated symptoms: none. Review of Systems Psychiatric symptoms: Suicidal, no anxiety, not homicidal. Health Status Allergies: Allergic Reactions (All) NKA. Medications: Include Documented Meds (Selected) Documented Medications Documented RisperDAL: PO SEROquel: PO ZyPREXA: . Past Medical/ Family/ Social History Medical history: All Problems Bipolar 1 disorder / [id number] / Confirmed. Surgical history: None ([id number]).. Social history: Alcohol use: Regularly, Tobacco use: Regularly, Drug use: Denies. Physical Examination Vital Signs Vital-Signs 10/29/15 14:44 PST Pain Intensity 0 Pain Scale Used Numeric Rating Scale Temp Tympanic 36.7 deg C Heart Rate 87 bpm NIBP Systolic 120 mm Hg NIBP Diastolic 63 mm Hg Resp Rate (Monitor) 18 Breaths/Min SPO2 96 % . oxygen saturation is normal on room air . Medical Decision Making Documents reviewed: Emergency department records (last seen in ED 10/10/15 for Psychiatric Problem). Orders Launch Order Profile (Selected) Inpatient Orders Ordered Consult to Drywall Taper: Sitter: Suicidal Ideation/Suicidal Attempts: Suicide Precautions: Suicide Precautions: Urine Dipstick POC Testing: Ordered (Dispatched) Alcohol Level: Aspirin Level: Blood Count: CMP (BMP + ALB, Tot Prot, Bili, CA, Alk Phos, ALT, AST): Liver Function Panel: Tylenol Level: Urine Drug Screen: . Impression and Plan Plan Counseled: Patient, Regarding treatment plan, Patient indicated understanding of instructions. Notes: This document was transcribed by emily Loera for Vanesa Siddiqui PA-C. This note represents documentation of an initial examination and treatment in the context of triage. This examination is not intended to be a comprehensive ED encounter. The patient was advised of this limitation, and counseled to remain in the ED until all preliminary tests and treatments are complete and they have been further evaluated by me or another ED physician, PA or ENGINEERING DOCUMENTATION SPECIALIST. For full documentation of the entire ED encounter, please see the downstream clinician's note. Provider Name: Vanesa Siddiqui PA-C. [place]: Savage Glez PA-C Supervising Physician: Cindy Lee MD Independent findings: patient alert, calm, suicidal ideation without plan, no homicidal ideation. Electronically Signed By: Vanesa Siddiqui On 11/01/15 17:40 Co Signature By: Cindy Lee MD On 01/17/16 21:41 Oly Loera Modify Signature By: Oly Loera On 10/29/15 15:04 10/29/2015 [facility] ED Physician Notes Patient: NORI ARSHAD (M) (M) Age: 30 years Sex: M : 84 Associated Diagnoses: None Author: Robert Rain PA-C Basic Information Time seen: Provider Initial Contact Time 10/10/2015 13:10. History source: Patient. Arrival mode: Walking. History limitation: None. Additional information: Chief Complaint (ST) Chief Complaint ED: SI 10/10/15 12:53. History of Present Illness The patient presents with psychiatric problem. Patient is a 30 year old male, with a history of SI, who presents to the ED with suicidal ideation. Patient denies having a current plan, but has attempted to cut his wrist in the past. He reports he is 'tired of his life'. The onset was just prior to arrival. Character of symptoms depressed suicidal thoughts. The degree of symptoms is minimal. Self injury: none. Risk factors consist of suicide risk. Associated symptoms: none. Review of Systems Constitutional symptoms: No fever, no chills. Skin symptoms: No rash, Eye symptoms: No recent vision problems, ENMT symptoms: No sore throat, Respiratory symptoms: No shortness of breath, no cough. Cardiovascular symptoms: No chest pain, Gastrointestinal symptoms: No abdominal pain, no nausea, no vomiting, no diarrhea. Genitourinary symptoms: No dysuria, no hematuria. Musculoskeletal symptoms: No back pain, Neurologic symptoms: No headache, Psychiatric symptoms: Depression, suicidal. Endocrine symptoms: No polyuria, Hematologic/Lymphatic symptoms: Bleeding tendency negative, Health Status Allergies: Allergic Reactions (Selected) NKA. Medications: Include Documented Meds (Selected) Documented Medications Documented RisperDAL: PO SEROquel: PO ZyPREXA: . Past Medical/ Family/ Social History Medical history: All Problems Bipolar 1 disorder / [id number] / Confirmed. Surgical history: Negative. Social history: Alcohol use: Regularly, Tobacco use: Regularly, Drug use: Denies. Physical Examination Vital Signs Vital-Signs 10/10/15 12:53 PST Oxygen Amount Room air SPO2 97 % Heart Rate 76 bpm NIBP Diastolic 87 mm Hg NIBP Systolic 129 mm Hg Resp Rate (Monitor) 18 Breaths/Min Temperature Temporal Artery 37.4 deg C Pain Intensity 0 Pain Scale Used Numeric Rating Scale . O2 saturation on room air is normal. General: Alert, no acute distress, smiling. Skin: Warm, dry, pink. Head: Normocephalic. Neck: Supple. Eye: Normal conjunctiva. Ears, nose, mouth and throat: Oral mucosa moist. Cardiovascular: Regular rate and rhythm, Normal peripheral perfusion. Respiratory: Lungs are clear to auscultation, respirations are non-labored. Gastrointestinal: Soft, Nontender. Back: Nontender. Musculoskeletal: Normal ROM. Neurological: Alert and oriented to person, place, time, and situation, normal motor observed, normal speech observed, normal coordination observed, Moving all extremities and answering all questions appropriately. Psychiatric: Cooperative, appropriate mood + affect. Medical Decision Making Differential Diagnosis: Anxiety, depression, suicide risk, schizophrenia, bipolar disorder. Documents reviewed: Emergency department records (08/29/15 for Suicidal ideations and Acute psychosis). Orders Launch Order Profile (Selected) Inpatient Orders Ordered Consult to Drywall Taper: Psychiatric Evaluation: Sitter: Suicidal Ideation/Suicidal Attempts: Suicide Precautions: Suicide Precautions: Ordered (Dispatched) Alcohol Level: BMP (Lytes, Glucose, Bun, Creat, + CA): Blood Count: Liver Function Panel: Salicylate Level: Tylenol Level: UA: UDS: . Results review: Lab results : Laboratory 10/10/15 13:41 PST WBC 5.4 K/uL RBC 4.57 million/uL Hgb 14.3 gm/dL Hct 43.2 % MCV 94.6 fL MCH 31.3 pg MCHC 33.1 gm/dL RDW 12.3 % Plt 236 K/uL Salicylate Level <4 mg/dL Ethanol 26 mg/dL H . Reexamination/ Reevaluation Time: 10/10/15 14:30:00 . Notes: No answer. Time: 10/10/15 14:52:00 . Notes: No answer. Impression and Plan Plan Disposition: Enocd (RN notified Police). Notes: MDM: This document was transcribed by emily Fairbanks for Robert Rain PA-C. Disclaimer: All medical record entries made by the scribe were at my direction. I have reviewed the chart and agree that the record and accurately reflects my person performance of the history, physical exam, medical decision making, and the emergency department course for this patient. I have also personally directed, reviewed, and agree with discharge instructions and disposition. Any imaging studies were interpreted by a radiologist, or they were interpreted jointly by me and the supervising physician. Any EKG was inspected by me, but interpreted by the supervising physician. The supervising physician was Ruel He D.O. Provider Name: Robert Rain PA-C.. Electronically Signed By: Robert Rain PA-C On 10/10/15 18:00 Co Signature By: Modify Signature By: Liza Fairbanks On 10/10/15 13:15 10/10/2015 [facility] ED Physician Notes Patient: NORI ARSHAD (M) (M) Age: 30 years Sex: M : 84 Associated Diagnoses: None Author: Dedrick Reyes MD Basic Information Addendum: Time of addendum:: 08/29/15 14:30:00 , Pertinent history: Patient awaiting transfer. Medical Decision Making Results review: Lab results : Laboratory 08/28/15 03:30 PDT DrugScrn Interp 08/28/15 03:48 PDT WBC 9.8 K/uL RBC 4.18 million/uL L Hgb 13.5 gm/dL Hct 40.8 % L MCV 97.7 fL MCH 32.4 pg MCHC 33.2 gm/dL RDW 12.5 % Plt 217 K/uL Sodium 142 mmol/L Potassium 3.8 mmol/L Chloride 103 mmol/L CO2 32 mmol/L Anion Gap 11 Glucose Level 84 mg/dL BUN 20 mg/dL Creatinine 1.24 mg/dL BUN/Library Consultant Ratio 16 eGFR Non- Am 68 mL/min/1.73m2 NA eGFR Afr/Amer 82 mL/min/1.73m2 NA Calcium 9.2 mg/dL Corrected Calcium 8.9 mg/dL Protein, Total 7.7 gm/dL Albumin 4.4 gm/dL Bili Total 1.5 mg/dL H ALT 26 IU/L AST 33 IU/L Alkphos 68 IU/L Acetaminophen Level <10 mcg/mL L Salicylate Level <4 mg/dL Ethanol <5 mg/dL 08/28/15 03:46 PDT Color Urine Yellow Appearance Urine Clear Leukocytes Negative Nitrite Negative Urobilinogen Urine 1 mg/dl Protein 30 mg/dL (1+) pH Urine 8.5 Blood Negative Specific [place] Urine 1.015 Ketones Urine Negative Bilirubin Negative Glucose Urine Negative 08/28/15 03:30 PDT Amphetamines Ur Negative Barbiturate Ur Negative Benzodiazepine Ur Negative Cocaine Ur Positive UMethadone Scr Negative Opiates Ur Negative PCP Scrn, Ur Negative THC, Ur Negative Tricyclic Scr, Ur Negative DrgScrn Method Instrument . Reexamination/ Reevaluation Time: 08/29/15 14:30:00 . Vital signs results included from flowsheet : Vital-Signs 08/29/15 12:50 PDT Temperature PO 36.3 deg C Heart Rate 59 bpm NIBP Systolic 101 mm Hg NIBP Diastolic 65 mm Hg Resp Rate (Monitor) 16 Breaths/Min SPO2 98 % Oxygen Amount Room air Course: improving. Interventions: PT PLACED ON 5150 HOLD BY MAT A DANGER TO SELF . PT HAS BEEN ACCEPTED IN TRANSF ER TO [facility]. MY ASSESSMENT NOW REVEALS THAT THE PT. REMAINS STABLE AND MEDICALLY CLEAR FOR PSYCHIATRIC CARE. . Impression and Plan Suicidal ideations (CDN00-NW R45.851, Admitting, Medical) Acute psychosis (ONX25-VU F29, Admitting, Medical) Plan Condition: Improved, Stable, Guarded. Disposition: Transfer to: Time 08/29/15 14:35:00, Facility name: [facility], Accepted by: DR ROBISON. Notes: THIS NOTE WAS COMPLETED BY ME ALONE WITHOUT HELP FROM A SCRIBE. Electronically Signed By: Dedrick Reyes MD On 08/29/15 14:34 Co Signature By: Modify Signature By: Dedrick Reyes MD On 08/29/15 14:34 08/29/2015 [facility] ED Physician Notes Patient: PAVITHRA, NORI L (M) (M) Age: 30 years Sex: M : 84 Associated Diagnoses: None Author: Gabbie Steve MD Basic Information Addendum: Time of addendum:: 08/28/15 11:25:00 , Pertinent history: 30 yo M palns for ending his life, seen by MAT Team, is on a hold. Impression and Plan Suicidality Plan Condition: Stable. Disposition: Admit: for psych when bed availble. Electronically Signed By: Gabbie Steve MD On 08/29/15 08:43 Co Signature By: Modify Signature By: 08/28/2015 [facility] ED Physician Notes Patient: NORI ARSHAD (M) (M) Age: 30 years Sex: M : 84 Associated Diagnoses: None Author: Earl Olivia MD Basic Information Time seen: Provider Initial Contact Time 08/28/2015 03:09. History source: Patient. Arrival mode: Walking. History limitation: None. Additional information: Chief Complaint (ST) Chief Complaint ED: FEELING SUICIDAL ALL NIGHT 08/28/15 02:52, ED Triage Assessment: NO RESPIRATORY DISTRESS. 08/28/15 02:52 . History of Present Illness The patient presents with suicidal ideations. 30 year old male, with a history of bipolar disorder, presents to the ED with suicidal ideations x 1 day. States he has some 'things' going on. No plan. No ingestion . The onset was 1 days ago. The course/duration of symptoms is constant. Character of symptoms suicidal thoughts. Self injury: not ingestion. Risk factors consist of suicide risk. Prior episodes: multiple ED visits. Review of Systems Constitutional symptoms: No fever, no chills, no weakness. Skin symptoms: No rash, Eye symptoms: No blurred vision, ENMT symptoms: No sore throat, Respiratory symptoms: No shortness of breath, no cough. Cardiovascular symptoms: No chest pain, no palpitations, no syncope. Gastrointestinal symptoms: No abdominal pain, no nausea, no vomiting. Genitourinary symptoms: No dysuria, Musculoskeletal symptoms: No back pain, no Joint pain. Neurologic symptoms: No numbness, no tingling, no weakness. Psychiatric symptoms: Suicidal. Additional review of systems information: All other systems reviewed and otherwise negative. Health Status Allergies: Allergic Reactions (Selected) NKA. Medications: Include Documented Meds (Selected) Documented Medications No known home medications.. Past Medical/ Family/ Social History Medical history: All Problems Bipolar 1 disorder / SNOMED CT [id number] / Confirmed. Surgical history: None ([id number]).. Family history: No family history items have been selected or recorded.. Social history: Family/social situation: Homeless. Physical Examination Vital Signs Vital-Signs 08/28/15 03:48 PDT Glucose Level 84 mg/dL 08/28/15 02:52 PDT Pain Intensity 7 Pain Scale Used Numeric Rating Scale Temperature Temporal Artery 36.5 deg C Heart Rate 78 bpm NIBP Systolic 130 mm Hg NIBP Diastolic 76 mm Hg Resp Rate (Monitor) 18 Breaths/Min SPO2 98 % Oxygen Amount Room air . oxygen saturation is normal on room air. General: Alert, no acute distress. Skin: Warm, dry, intact. Head: Normocephalic, atraumatic. Neck: Supple. Eye: Pupils are equal, round and reactive to light, extraocular movements are intact, normal conjunctiva. Cardiovascular: Regular rate and rhythm, No murmur, Normal peripheral perfusion, No edema. Respiratory: Lungs are clear to auscultation, breath sounds are equal. Chest wall: No tenderness. Gastrointestinal: Soft, Nontender, Non distended. Neurological: Alert and oriented to person, place, time, and situation, No focal neurological deficit observed, normal sensory observed, normal motor observed, normal speech observed. Medical Decision Making Differential Diagnosis: Depression, bipolar disorder, drug abuse, suicidal ideations. Rationale: 30 yo man p/w SI and depression. MEdically stable for MAT evaluation.. Documents reviewed: Emergency department records (Last seen on 08/21/15 for Suicidal ideations and Depression). Orders Launch Order Profile (Selected) Inpatient Orders Ordered Sitter: Suicidal Ideation/Suicidal Attempts: Suicide Precautions: Urine Dipstick POC Testing: Ordered (Collected) Alcohol Level: Aspirin Level: CBC w/o Diff: CMP (BMP + ALB, Tot Prot, Bili, CA, Alk Phos, ALT, AST): Tylenol Level: Ordered (In-Lab) Toxicology Drug Screen Urine: . Results review: Lab results : Laboratory 08/28/15 03:30 PDT DrugScrn Interp 08/28/15 03:48 PDT WBC 9.8 K/uL RBC 4.18 million/uL L Hgb 13.5 gm/dL Hct 40.8 % L MCV 97.7 fL MCH 32.4 pg MCHC 33.2 gm/dL RDW 12.5 % Plt 217 K/uL Sodium 142 mmol/L Potassium 3.8 mmol/L Chloride 103 mmol/L CO2 32 mmol/L Anion Gap 11 Glucose Level 84 mg/dL BUN 20 mg/dL Creatinine 1.24 mg/dL BUN/Library Consultant Ratio 16 eGFR Non- Am 68 mL/min/1.73m2 NA eGFR Afr/Amer 82 mL/min/1.73m2 NA Calcium 9.2 mg/dL Corrected Calcium 8.9 mg/dL Protein, Total 7.7 gm/dL Albumin 4.4 gm/dL Bili Total 1.5 mg/dL H ALT 26 IU/L AST 33 IU/L Alkphos 68 IU/L Acetaminophen Level <10 mcg/mL L Salicylate Level <4 mg/dL Ethanol <5 mg/dL 08/28/15 03:46 PDT Color Urine Yellow Appearance Urine Clear Leukocytes Negative Nitrite Negative Urobilinogen Urine 1 mg/dl Protein 30 mg/dL (1+) pH Urine 8.5 Blood Negative Specific [place] Urine 1.015 Ketones Urine Negative Bilirubin Negative Glucose Urine Negative 08/28/15 03:30 PDT Amphetamines Ur Negative Barbiturate Ur Negative Benzodiazepine Ur Negative Cocaine Ur Positive UMethadone Scr Negative Opiates Ur Negative PCP Scrn, Ur Negative THC, Ur Negative Tricyclic Scr, Ur Negative DrgScrn Method Instrument , Interpretation Labs unremarkable. Chest X-Ray: Impression and Plan Suicidal ideations ([id number] R45.851, Working, Medical) Plan Condition: Stable. Disposition: Medically cleared. Counseled: Patient, Regarding treatment plan, Patient indicated understanding of instructions. Notes: This document was transcribed by emily Travis for Earl Olivia MD Disclaimer: All medical record entries made by the scribe were at my direction. I have reviewed the chart and agree that the record and accurately reflects my person performance of the history, physical exam, medical decision making, and the emergency department course for this patient. I have also personally directed, reviewed, and agree with discharge instructions and disposition. Provider Name: Earl Olivia MD . Electronically Signed By: Earl Olivia MD On 08/29/15 00:03 Co Signature By: Modify Signature By: Karla Travis On 08/28/15 03:56 08/28/2015 [facility] ED Physician Notes Patient: NORI ARSHAD (M) (M) Age: 30 years Sex: M : 83 Associated Diagnoses: None Author: Satish Dominguez Basic Information Addendum: Time of addendum:: 08/21/15 15:19:00 . Medical Decision Making Notes: Saw patient at 1300 on 08/21/15. Patient is stable and cooperative. No acute distress. Vitals within normal limits. Patient has been placed on hold. Bed available at [facility]. Dr. Floyd is accepting physician for transfer of patient. Dr. Earl Chang filled out transfer paperwork.. Impression and Plan Suicidal ideations (WRO61-MA R45.851, Working, Medical) Depression (YKD32-MB F32.9, Working, Medical) Plan Condition: Stable. Disposition: Transfer to: Facility name: [facility], Accepted by: Dr. Floyd. Counseled: Patient, Regarding treatment plan, Patient indicated understanding of instructions. Notes: This document was transcribed by emily Garner for Satish Dominguez PA-C. Disclaimer: All medical record entries made by the scribe were at my direction. I have reviewed the chart and agree that the record accurately reflects my personal performance of the history, physical exam, medical decision making, and the emergency department course for this patient. I have also personally directed, reviewed, and agree with the discharge instructions and disposition. Provider Name: Satish Dominguez PA-C Any imaging studies were interpreted by a radiologist, or they were jointy by me and the supervising physician. Any EKG was inspected by me, but interpreted by the supervising physician. Supervising Physician: Daniel Florian MD. Electronically Signed By: Satish Dominguez On 08/21/15 16:49 Co Signature By: Daniel Florian MD On 08/24/15 06:02 Travis Garner Modify Signature By: 08/21/2015 [facility] ED Physician Notes Patient: NORI ARSHAD (M) (M) Age: 30 years Sex: M : 84 Associated Diagnoses: None Author: Kelvin Ibarra MD Basic Information Addendum: Time of addendum:: 08/20/15 22:33:00 , Pertinent history: Pt medically clear for psychosocial services evaluation. Impression and Plan Plan Disposition: Medically cleared. Electronically Signed By: Kelvin Ibarra MD On 08/20/15 22:34 Co Signature By: Modify Signature By: 08/21/2015 [facility] ED Physician Notes Patient: NORI ARSHAD (M) (M) Age: 30 years Sex: M : 84 Associated Diagnoses: None Author: Satish Dominguez Basic Information Time seen: Date + time 08/20/15 15:43:00. History source: Patient. Arrival mode: Private vehicle, walking. History limitation: None. History of Present Illness The patient presents with suicidal ideation. 30 year old male with history of suicidal ideation, bipolar and AIDS complains of suicidal ideation. Patient states that he 'fears for his life walking out on the streets.' Patient is currently homeless and says that he needs to find a program that works for him. Patient states that he has thought about 'blowing [his] brains out with a gun, if [he] can get [his] hands on one.' Patient has no physical complaints of pain. States he hear things, things knocking on doors . The course/duration of symptoms is constant. Character of symptoms depressed suicidal thoughts. Associated symptoms: none. Review of Systems Constitutional symptoms: No fever, no chills. Skin symptoms: No rash, Eye symptoms: No recent vision problems, ENMT symptoms: No sore throat, Respiratory symptoms: No shortness of breath, no cough. Cardiovascular symptoms: No chest pain, Gastrointestinal symptoms: No abdominal pain, no nausea, no vomiting, no diarrhea. Genitourinary symptoms: No dysuria, no hematuria. Neurologic symptoms: No headache, Psychiatric symptoms: Suicidal, No anxiety, Health Status Allergies: Allergic Reactions (Selected) NKA. Past Medical/ Family/ Social History Medical history: All Problems Bipolar 1 disorder / [id number] / Confirmed. Surgical history: None ([id number]).. Family history: No family history items have been selected or recorded.. Social history: Family/social situation: Homeless. Physical Examination Vital Signs Vital-Signs 08/20/15 15:34 PDT SPO2 97 % Heart Rate 85 bpm NIBP Diastolic 67 mm Hg NIBP Systolic 110 mm Hg Resp Rate (Monitor) 18 Breaths/Min Tympanic Temp 37.0 deg C Pain Intensity 0 Pain Scale Used Numeric Rating Scale . Measurements 08/20/15 15:34 PDT Drug Calc Weight (kg) 77 kg BMI 24.58 Height 177 cm . SPO2 08/20/15 15:34 PDT SPO2 97 % . O2 Saturation is Within Normal Limits on Room Air. General: Alert, no acute distress. Skin: Warm, dry. Head: Normocephalic. Neck: Supple. Eye: Normal conjunctiva. Ears, nose, mouth and throat: Oral mucosa moist. Cardiovascular: Normal peripheral perfusion. Respiratory: Respirations are non-labored. Gastrointestinal: Soft, Nontender. Back: Normal range of motion. Musculoskeletal: Normal ROM. Neurological: Alert and oriented to person, place, time, and situation, normal speech observed. Psychiatric: Cooperative, Abnormal / Psychotic thoughts: Suicidal, hallucinations auditory, not homicidal. Medical Decision Making Differential Diagnosis: Anxiety, depression, suicide risk, schizophrenia, AIDS. Orders Launch Order Profile (Selected) Inpatient Orders Ordered One to One Observation (Sitter): Suicidal Ideation/Suicidal Attempts: Suicide Precautions: Ordered (Dispatched) Acetaminophen Level: Alcohol Level: BMP: CBC w/o Diff: Drug Abuse Screen Urine: Salicylate Level: . Notes: Pt. with AIDS, homeless and previous suicidal ideation p/w thoughts of killing himself with gun. States out of medication for years. Is cooperative and wants to be placed on hold. In NAD. pending labs, Dr Ibarra to medically clear and page MAT when labs back. In stable condition. Impression and Plan Suicidal ideations (ETS11-RM R45.851, Working, Medical) Homelessness (XYI58-IT Z59.0, Working, Medical) Depression (INX29-FK F32.9, Working, Medical) Plan Condition: Stable. Disposition: Patient care transitioned to: Time: 08/20/15 16:23:00, Kelvin Ibarra MD. Counseled: Patient, Regarding treatment plan, Patient indicated understanding of instructions. Notes: This document was transcribed by emily Angelo for Satish Dominguez PA-C. Disclaimer: All medical record entries made by the scribe were at my direction. I have reviewed the chart and agree that the record and accurately reflects my person performance of the history, physical exam, medical decision making, and the emergency department course for this patient. I have also personally directed, reviewed, and agree with discharge instructions and disposition. Provider Name: Satish Dominguez PA-C Supervising Physician: Kelvin Ibarra MD. Any imaging studies were interpreted by a radiologist, or they were interpreted jointly by me and the supervising physician. Any EKG was inspected by me, but interpreted by the supervising physician.. Electronically Signed By: Satish Dominguez On 08/20/15 21:56 Co Signature By: Kelvin Ibarra MD On 08/20/15 23:43 Carson Angelo Modify Signature By: Carson Angelo On 08/20/15 15:49 08/20/2015 [facility] ED Physician Notes Patient: NORI ARSHAD (M) (M) Age: 30 years Sex: M : 84 Associated Diagnoses: None Author: Robert Rain PA-C Basic Information Time seen: Provider Initial Contact Time 07/22/2015 17:21. History source: Patient. Arrival mode: Walking. History limitation: None. Additional information: Chief Complaint (ST) Chief Complaint ED: 'I feel like I'm having a breakdown' 07/22/15 16:19. History of Present Illness The patient presents with suicidal ideation. Patient is a 30 year old male with a history of bipolar disorder, who presents to the ED with complaints of suicidal ideation. His plan is to walk through traffic and get hit by a car. Patient was seen on 06/23/2015 for suicidal ideation, and he was sent to [facility] . The onset was chronic. The course/duration of symptoms is constant. Character of symptoms depressed. Review of Systems Constitutional symptoms: No fever, no chills. Skin symptoms: No rash, Eye symptoms: No recent vision problems, ENMT symptoms: No sore throat, Respiratory symptoms: No shortness of breath, no cough. Cardiovascular symptoms: No chest pain, Gastrointestinal symptoms: No abdominal pain, no nausea, no vomiting, no diarrhea. Genitourinary symptoms: No dysuria, no hematuria. Musculoskeletal symptoms: No back pain, Neurologic symptoms: No headache, Psychiatric symptoms: Depression, suicidal. Endocrine symptoms: No polyuria, Hematologic/Lymphatic symptoms: Bleeding tendency negative, Health Status Allergies: Allergic Reactions (Selected) NKA. Past Medical/ Family/ Social History Medical history: All Problems Bipolar 1 disorder / [id number] / Confirmed. Surgical history: None ([id number]).. Social history: Alcohol use: Occasionally. Physical Examination Vital Signs Vital-Signs 07/22/15 16:19 PDT Pain Intensity 10 Pain Scale Used Numeric Rating Scale Temperature Temporal Artery 37.4 deg C Heart Rate 100 bpm NIBP Systolic 136 mm Hg NIBP Diastolic 77 mm Hg Resp Rate (Monitor) 18 Breaths/Min SPO2 96 % Oxygen Amount room air . Oxygen saturation: 96 %. O2 Saturation on room air is normal. General: Alert, no acute distress. Skin: Warm, dry, pink. Head: Normocephalic. Neck: Supple. Eye: Normal conjunctiva. Ears, nose, mouth and throat: Oral mucosa moist. Cardiovascular: Regular rate and rhythm, Normal peripheral perfusion. Respiratory: Lungs are clear to auscultation, respirations are non-labored. Gastrointestinal: Soft, Nontender. Back: Nontender. Musculoskeletal: Normal ROM. Neurological: Alert and oriented to person, place, time, and situation, normal motor observed, normal speech observed, normal coordination observed, Moving all extremities and answering all questions appropriately. Psychiatric: Cooperative, Mood and affect: Depressed. Medical Decision Making Differential Diagnosis: Anxiety, depression, suicide risk, bipolar disorder. Documents reviewed: Emergency department records (last seen in ED on 06/23/2015 for suicidal ideation). Orders Launch Order Profile (Selected) Inpatient Orders Ordered Psychiatric Evaluation: Sitter: Suicidal Ideation/Suicidal Attempts: Suicide Precautions: Suicide Precautions: Ordered (Dispatched) Alcohol Level: BMP (Lytes, Glucose, Bun, Creat, + CA): Blood Count: Liver Function Panel: Salicylate Level: Tylenol Level: UA: UDS: . Reexamination/ Reevaluation Time: 07/22/15 18:21:00 . Notes: Patient is medically cleared for evaluation. Impression and Plan Diagnosis Suicidal risk 300.9 (ICD9 300.9, Discharge, Emergency medicine, Medical) Plan Disposition: Medically cleared. Counseled: Patient, Regarding diagnosis, Regarding diagnostic results, Regarding treatment plan, Patient indicated understanding of instructions. Notes: MDM: This document was transcribed by emily Cardenas for STEVAN Gonzalez. Disclaimer: All medical record entries made by the scribe were at my direction. I have reviewed the chart and agree that the record accurately reflects my personal performance of the history, physical exam, medical decision making, and the emergency department course for this patient. I have also personally directed, reviewed, and agree with the discharge instructions and disposition. Provider Name: Robert Rain Any imaging studies were interpreted by a radiologist, or they were interpreted jointly by me and the supervising physician. Any EKG was inspected by me, but interpreted by the supervising physician. The supervising physician was Satish Apodaca MD.. Electronically Signed By: Robert Rain PA-C On 07/29/15 14:56 Co Signature By: Satish Apodaca MD On 07/29/15 16:03 Modify Signature By: Blanquita Cardenas On 07/22/15 17:25 07/23/2015 [facility] ED Physician Notes Patient: NORI ARSHAD (M) (M) Age: 30 years Sex: M : 84 Associated Diagnoses: None Author: Earl Chang DO Basic Information Time seen: Provider Initial Contact Time 06/23/2015 13:07. History source: Patient, EMS. Arrival mode: Walking, ambulance. History limitation: None. Additional information: Chief Complaint (ST) No results found. . History of Present Illness The patient presents with depression. Patient is a 30 year old male, with history of bipolar disorder, brought in by ambulance presenting to the ED with feeling depressed and suicidal today. He states that he does not have a plan but has a history of cutting his wrists. He reports that he was given six prescriptions in [place] about 3.5 months ago but has run out. He reports drinking one beer today. Patient also complains of dry and painful feet. Review of Systems Constitutional symptoms: No fever, no chills. Skin symptoms: No rash, Eye symptoms: No recent vision problems, ENMT symptoms: No sore throat, no nasal congestion. Respiratory symptoms: No shortness of breath, no cough. Cardiovascular symptoms: No chest pain, no syncope. Gastrointestinal symptoms: No abdominal pain, no nausea, no vomiting, no diarrhea. Genitourinary symptoms: No dysuria, no hematuria. Musculoskeletal symptoms: No back pain, Neurologic symptoms: No headache, no altered level of consciousness. Psychiatric symptoms: No anxiety, no substance abuse. Additional review of systems information: Review of systems done for 10 systems and were negative except as mentioned in the HPI. Health Status Allergies: No active allergies have been recorded.. Past Medical/ Family/ Social History Medical history: All Problems Bipolar 1 disorder / [id number] / Confirmed. Surgical history: None ([id number]).. Social history: Alcohol use: one beer today. Physical Examination Vital Signs Vital-Signs 06/23/15 13:12 PDT Pain Intensity 0 Pain Scale Used Numeric Rating Scale Temperature PO 36.7 deg C Heart Rate 78 bpm NIBP Systolic 114 mm Hg NIBP Diastolic 73 mm Hg Resp Rate (Monitor) 16 Breaths/Min SPO2 98 % Oxygen Amount Room air . Oxygen saturation on room air is normal. General: Alert, no acute distress. Skin: Warm, dry, dry skin on feet, no infection . Head: Normocephalic, atraumatic. Neck: Supple, no tenderness. Eye: Extraocular movements are intact, normal conjunctiva. Ears, nose, mouth and throat: Oral mucosa moist, no pharyngeal erythema or exudate. Cardiovascular: Regular rate and rhythm, No murmur. Respiratory: Lungs are clear to auscultation, respirations are non-labored. Chest wall: No tenderness. Back: Nontender. Musculoskeletal: Normal ROM. Gastrointestinal: Soft, Nontender. Neurological: Alert and oriented to person, place, time, and situation, No focal neurological deficit observed. Psychiatric: Cooperative. Medical Decision Making Differential Diagnosis: Anxiety, depression, suicide risk, bipolar disorder. Documents reviewed: Emergency medical system run report. Orders Launch Order Profile (Selected) Inpatient Orders Ordered Regular Diet: Sitter: Completed Acetaminophen Level: BMP: CBC w/Diff*: Drug Abuse Screen Urine: Ethanol Level: Hepatic Function Panel: Lipase Level: Salicylate Level: . Results review: Lab results : Laboratory 06/23/15 13:20 PDT DrugScrn Interp 06/23/15 13:30 PDT WBC 4.5 K/uL RBC 3.86 million/uL L Hgb 12.3 gm/dL L Hct 37.6 % L MCV 97.3 fL MCH 31.9 pg MCHC 32.8 gm/dL RDW 13.0 % Plt 182 K/uL Neuts 50 % Lymphs 36 % Monos. 8 % Eos. 6 % H Baso. 1 % ABS Neut 2.2 K/uL ABS Lymph 1.6 K/uL ABS [place] 0.3 K/uL ABS Eos 0.2 K/uL CBC Scan Auto Diff Sodium 139 mmol/L Potassium 3.7 mmol/L Chloride 106 mmol/L CO2 28 mmol/L Anion Gap 9 Glucose Level 96 mg/dL BUN 9 mg/dL Creatinine 0.84 mg/dL BUN/Library Consultant Ratio 11 eGFR Non- Am 107 mL/min/1.73m2 NA eGFR Afr/Amer 129 mL/min/1.73m2 NA Calcium 8.7 mg/dL Protein, Total 6.9 gm/dL Albumin 4.0 gm/dL Bili Total 0.9 mg/dL Bili Direct 0.1 mg/dL ALT 14 IU/L AST 19 IU/L Alkphos 76 IU/L Lipase 30 Units/L Acetaminophen Level <10 mcg/mL L Salicylate Level <4 mg/dL Ethanol 38 mg/dL H 06/23/15 13:20 PDT Amphetamines Ur Negative Barbiturate Ur Negative Benzodiazepine Ur Negative Cocaine Ur Negative UMethadone Scr Negative Opiates Ur Negative PCP Scrn, Ur Negative THC, Ur Negative Tricyclic Scr, Ur Negative DrgScrn Method Instrument . Notes: Pt with psych hx here with SI. Pt is a danger to self. ED work up non-concerning, he is medically cleared. Will have disposition per MAT team. Reexamination/ Reevaluation Time: 06/23/15 17:00:00 . Notes: Patient is medically cleared for MAT evaluation. Time: 06/23/15 19:26:00 . Notes: Per nurse, patient is being put on a psychiatric hold by the MAT nurse infection control, Chanel. Impression and Plan Suicidal ideation (ICD9 V62.84, Working, Medical) Calls-Consults Plan Condition: Stable. Disposition: Medically cleared, Time 06/23/15 19:26:00, Psychiatric hold. Counseled: Patient, Regarding diagnosis, Regarding diagnostic results, Regarding treatment plan, Patient indicated understanding of instructions. Notes: This document was transcribed by emily Schilling for Dr Earl Chang Disclaimer: All medical record entries made by the scribe were at my direction. I have reviewed the chart and agree that the record accurately reflects my personal performance of the history, physical exam, medical decision making, and the emergency department course for this patient. I have also personally directed, reviewed, and agree with the discharge instructions and disposition. Physician Name: Earl Chang DO. Electronically Signed By: Earl Chang DO On 06/27/15 14:42 Co Signature By: Modify Signature By: Larissa Schilling On 06/23/15 13:26 06/23/2015 [facility] Vital Signs Vital Sign Value Date Comments Source Heart Rate (bpm) 91 12/29/2015 [facility] Respiratory Rate 16 Breaths/Min 12/29/2015 [facility] Systolic (mm Hg) 130 12/29/2015 [facility] Diastolic (mm Hg) 73 12/29/2015 [facility] Temperature (c) 36.5 12/29/2015 [facility] Weight Method Stated (12/28/15 11:46 PM) 12/29/2015 [facility] BMI 25.88 12/29/2015 [facility] Drug Calc Weight (kg) 81.818 12/29/2015 [facility] Height (cm) 177.8 12/29/2015 [facility] [place] Pain Scale 10 (12/28/15 11:46 PM) 12/29/2015 [facility] [place] Pain Scale Numeric Rating Scale (12/28/15 11:46 PM) 12/29/2015 [facility] SPO2 96 12/29/2015 [facility] Oxygen Amount Room air (12/28/15 11:46 PM) 12/29/2015 [facility] Oxygen Amount Room air (12/21/15 8:21 PM) 12/22/2015 [facility] SPO2 97 12/22/2015 [facility] Systolic (mm Hg) 109 12/22/2015 [facility] Diastolic (mm Hg) 60 12/22/2015 [facility] Temperature (c) 36.9 12/22/2015 [facility] Heart Rate (bpm) 74 12/22/2015 [facility] Respiratory Rate 16 Breaths/Min 12/22/2015 [facility] SPO2 100 12/22/2015 [facility] Systolic (mm Hg) 106 12/22/2015 [facility] Diastolic (mm Hg) 72 12/22/2015 [facility] Temperature (c) 36.7 12/22/2015 [facility] Heart Rate (bpm) 67 12/22/2015 [facility] Respiratory Rate 18 Breaths/Min 12/22/2015 [facility] Oxygen Amount Room air (12/21/15 6:24 PM) 12/22/2015 [facility] Heart Rate (bpm) 78 12/21/2015 [facility] Respiratory Rate 18 Breaths/Min 12/21/2015 [facility] Oxygen Amount Room air (12/21/15 1:15 PM) 12/21/2015 [facility] Systolic (mm Hg) 130 12/21/2015 [facility] Diastolic (mm Hg) 88 12/21/2015 [facility] SPO2 99 12/21/2015 [facility] Temperature (c) 36.8 12/21/2015 [facility] Heart Rate (bpm) 68 12/21/2015 [facility] SPO2 99 12/21/2015 [facility] Systolic (mm Hg) 112 12/21/2015 [facility] Diastolic (mm Hg) 61 12/21/2015 [facility] Respiratory Rate 16 Breaths/Min 12/21/2015 [facility] Temperature (c) 37.1 12/21/2015 [facility] SPO2 99 12/21/2015 [facility] Respiratory Rate 18 Breaths/Min 12/21/2015 [facility] Systolic (mm Hg) 124 12/21/2015 [facility] Diastolic (mm Hg) 74 12/21/2015 [facility] Heart Rate (bpm) 70 12/21/2015 [facility] Temperature (c) 37.1 12/21/2015 [facility] Glucose Level (mg/dL) 94 12/21/2015 [facility] BMI 23.21 12/21/2015 [facility] Weight Method Stated (12/20/15 6:27 PM) 12/21/2015 [facility] Height (cm) 177 12/21/2015 [facility] Drug Calc Weight (kg) 72.7 12/21/2015 [facility] SPO2 99 12/21/2015 [facility] Respiratory Rate 20 Breaths/Min 12/21/2015 [facility] Pain Scale 0 (12/20/15 6:27 PM) 12/21/2015 [facility] Pain Scale Numeric Rating Scale (12/20/15 6:27 PM) 12/21/2015 [facility] Temperature (c) 37.1 12/21/2015 [facility] Systolic (mm Hg) 127 12/21/2015 [facility] Diastolic (mm Hg) 84 12/21/2015 [facility] Heart Rate (bpm) 80 12/21/2015 [facility] Temperature (c) 36.6 11/30/2015 [facility] SPO2 100 11/30/2015 [facility] Respiratory Rate 18 Breaths/Min 11/30/2015 [facility] Heart Rate (bpm) 89 11/30/2015 [facility] Pain Scale 0 (11/30/15 12:26 PM) 11/30/2015 [facility] Systolic (mm Hg) 131 11/30/2015 [facility] Diastolic (mm Hg) 86 11/30/2015 [facility] Glucose Level (mg/dL) 67 11/30/2015 [facility] BMI 28.73 11/30/2015 [facility] Weight Method Stated (11/30/15 10:45 AM) 11/30/2015 [facility] Pain Scale Numeric Rating Scale (11/30/15 10:45 AM) 11/30/2015 [facility] Drug Calc Weight (kg) 90 11/30/2015 [facility] Height (cm) 177 11/30/2015 [facility] Pain Scale 0 (11/30/15 10:45 AM) 11/30/2015 [facility] SPO2 97 11/30/2015 [facility] Heart Rate (bpm) 58 11/30/2015 [facility] Respiratory Rate 18 Breaths/Min 11/30/2015 [facility] Systolic (mm Hg) 114 11/30/2015 [facility] Diastolic (mm Hg) 72 11/30/2015 [facility] Temperature (c) 36.8 11/30/2015 [facility] Systolic (mm Hg) 117 11/29/2015 [facility] Diastolic (mm Hg) 68 11/29/2015 [facility] Heart Rate (bpm) 74 11/29/2015 [facility] SPO2 100 11/29/2015 [facility] Respiratory Rate 18 Breaths/Min 11/29/2015 [facility] Pain Scale Numeric Rating Scale (11/29/15 2:21 AM) 11/29/2015 [facility] Pain Scale 3 (11/29/15 2:21 AM) 11/29/2015 [facility] Pain Scale Numeric Rating Scale (11/29/15 1:51 AM) 11/29/2015 [facility] [place] Pain Scale 10 (11/29/15 1:51 AM) 11/29/2015 [facility] Drug Calc Weight (kg) 90 11/29/2015 [facility] Height (cm) 177 11/29/2015 [facility] [place] Pain Scale Numeric Rating Scale (11/29/15 12:38 AM) 11/29/2015 [facility] [place] Pain Scale 10 (11/29/15 12:38 AM) 11/29/2015 [facility] Oxygen Amount Room air (11/29/15 12:38 AM) 11/29/2015 [facility] SPO2 100 11/29/2015 [facility] Respiratory Rate 18 Breaths/Min 11/29/2015 [facility] Weight Method Stated (11/29/15 12:38 AM) 11/29/2015 [facility] BMI 28.73 11/29/2015 [facility] Systolic (mm Hg) 134 11/29/2015 [facility] Diastolic (mm Hg) 85 11/29/2015 [facility] Temperature (c) 35.7 11/29/2015 [facility] Heart Rate (bpm) 74 11/29/2015 [facility] SPO2 100 11/29/2015 [facility] Systolic (mm Hg) 118 11/29/2015 [facility] Diastolic (mm Hg) 68 11/29/2015 [facility] Heart Rate (bpm) 89 11/29/2015 [facility] Respiratory Rate 19 Breaths/Min 11/29/2015 [facility] Oxygen Amount Room air (11/28/15 4:00 PM) 11/29/2015 [facility] Temperature (c) 36.8 11/29/2015 [facility] Oxygen Amount Room air (11/28/15 8:07 AM) 11/28/2015 [facility] Temperature (c) 36.6 11/28/2015 [facility] Respiratory Rate 18 Breaths/Min 11/28/2015 [facility] Heart Rate (bpm) 100 11/28/2015 [facility] Systolic (mm Hg) 133 11/28/2015 [facility] Diastolic (mm Hg) 67 11/28/2015 [facility] SPO2 100 11/28/2015 [facility] Glucose Level (mg/dL) 79 11/28/2015 [facility] Weight Method Stated (11/27/15 6:51 PM) 11/28/2015 [facility] [place] Pain Scale 0 (11/27/15 6:51 PM) 11/28/2015 [facility] Pain Scale Numeric Rating Scale (11/27/15 6:51 PM) 11/28/2015 [facility] [place] SPO2 97 11/28/2015 [facility] Respiratory Rate 20 Breaths/Min 11/28/2015 [facility] Heart Rate (bpm) 86 11/28/2015 [facility] Temperature (c) 37 11/28/2015 [facility] Systolic (mm Hg) 138 11/28/2015 [facility] Diastolic (mm Hg) 63 11/28/2015 [facility] BMI 28.76 11/28/2015 [facility] Height (cm) 177.8 11/28/2015 [facility] Drug Calc Weight (kg) 90.909 11/28/2015 [facility] Systolic (mm Hg) 108 11/15/2015 [facility] Diastolic (mm Hg) 63 11/15/2015 [facility] Pain Scale 0 (11/15/15 8:08 AM) 11/15/2015 [facility] SPO2 100 11/15/2015 [facility] Heart Rate (bpm) 70 11/15/2015 [facility] Temperature (c) 36.8 11/15/2015 [facility] Systolic (mm Hg) 108 11/15/2015 [facility] Diastolic (mm Hg) 63 11/15/2015 [facility] Pain Scale 0 (11/15/15 6:33 AM) 11/15/2015 [facility] Pain Scale Numeric Rating Scale (11/15/15 6:33 AM) 11/15/2015 [facility] [place] Oxygen Amount Room air (11/15/15 6:33 AM) 11/15/2015 [facility] [place] SPO2 100 11/15/2015 [facility] Respiratory Rate 20 Breaths/Min 11/15/2015 [facility] Heart Rate (bpm) 69 11/15/2015 [facility] Temperature (c) 36.8 11/15/2015 [facility] Systolic (mm Hg) 109 11/15/2015 [facility] Diastolic (mm Hg) 53 11/15/2015 [facility] SPO2 96 11/15/2015 [facility] Oxygen Amount Room air (11/14/15 9:00 PM) 11/15/2015 [facility] Respiratory Rate 20 Breaths/Min 11/15/2015 [facility] Heart Rate (bpm) 75 11/15/2015 [facility] Systolic (mm Hg) 121 11/14/2015 [facility] Respiratory Rate 16 Breaths/Min 11/14/2015 [facility] SPO2 99 11/14/2015 [facility] Oxygen Amount Room air (11/14/15 8:48 AM) 11/14/2015 [facility] Heart Rate (bpm) 61 11/14/2015 [facility] NIBP Mean 65 11/14/2015 [facility] Diastolic (mm Hg) 65 11/14/2015 [facility] SPO2 99 11/14/2015 [facility] Pain Scale Numeric Rating Scale (11/14/15 4:00 AM) 11/14/2015 [facility] [place] Heart Rate (bpm) 72 11/14/2015 [facility] Pain Scale 0 (11/14/15 4:00 AM) 11/14/2015 [facility] Oxygen Amount Room air (11/14/15 4:00 AM) 11/14/2015 [facility] [place] Respiratory Rate 16 Breaths/Min 11/14/2015 [facility] Systolic (mm Hg) 107 11/14/2015 [facility] Diastolic (mm Hg) 60 11/14/2015 [facility] Respiratory Rate 17 Breaths/Min 11/14/2015 [facility] SPO2 99 11/14/2015 [facility] Oxygen Amount Room air (11/13/15 8:00 PM) 11/14/2015 [facility] Heart Rate (bpm) 58 11/14/2015 [facility] Systolic (mm Hg) 103 11/14/2015 [facility] Diastolic (mm Hg) 61 11/14/2015 [facility] Temperature (c) 36.0 11/14/2015 [facility] Systolic (mm Hg) 99 11/13/2015 [facility] Diastolic (mm Hg) 50 11/13/2015 [facility] Heart Rate (bpm) 66 11/13/2015 [facility] Temperature (c) 36.7 11/13/2015 [facility] Oxygen Amount Room air (11/13/15 8:00 AM) 11/13/2015 [facility] Respiratory Rate 16 Breaths/Min 11/13/2015 [facility] SPO2 100 11/13/2015 [facility] Respiratory Rate 18 Breaths/Min 11/13/2015 [facility] Temperature (c) 36.6 11/13/2015 [facility] Heart Rate (bpm) 70 11/13/2015 [facility] Systolic (mm Hg) 130 11/13/2015 [facility] Diastolic (mm Hg) 62 11/13/2015 [facility] SPO2 99 11/13/2015 [facility] Temperature (c) 36.0 11/12/2015 [facility] Heart Rate (bpm) 64 11/12/2015 [facility] Systolic (mm Hg) 119 11/12/2015 [facility] Diastolic (mm Hg) 63 11/12/2015 [facility] FIO2 - pt care 98 11/12/2015 [facility] Oxygen Amount Room air (11/12/15 10:43 AM) 11/12/2015 [facility] Respiratory Rate 16 Breaths/Min 11/12/2015 [facility] FIO2 - pt care 98 11/12/2015 [facility] Systolic (mm Hg) 131 11/12/2015 [facility] Diastolic (mm Hg) 58 11/12/2015 [facility] Respiratory Rate 18 Breaths/Min 11/12/2015 [facility] Heart Rate (bpm) 74 11/12/2015 [facility] Temperature (c) 36.2 11/12/2015 [facility] Oxygen Amount Room air (11/11/15 4:00 PM) 11/12/2015 [facility] Respiratory Rate 14 Breaths/Min 11/12/2015 [facility] Temperature (c) 35.8 11/12/2015 [facility] Oxygen Amount Room air (11/11/15 9:00 AM) 11/11/2015 [facility] Temperature (c) 35.5 11/11/2015 [facility] SPO2 97 11/11/2015 [facility] Temperature (c) 37 11/11/2015 [facility] Glucose Level (mg/dL) 83 11/11/2015 [facility] Weight Method Stated (11/10/15 10:27 PM) 11/11/2015 [facility] BMI 25.16 11/11/2015 [facility] Drug Calc Weight (kg) 72.7 11/11/2015 [facility] Height (cm) 170 11/11/2015 [facility] Pain Scale Numeric Rating Scale (11/10/15 10:27 PM) 11/11/2015 [facility] [place] Pain Scale 0 (11/10/15 10:27 PM) 11/11/2015 [facility] SPO2 96 11/11/2015 [facility] Tympanic Temp 36.8 11/11/2015 [facility] Encounters Location Location Details Encounter Type Encounter Number Reason For Visit Attending Provider ADM Date DC Date Status Source [facility] Emergency [id number] CHAN RUST 11/11 [facility] Emergency [id number] Kelvin Ibarra 11/28 [facility] Emergency [id number] Gabbie Power 11/29 [facility] Emergency [id number] Satish Constanza 11/30 [facility] Emergency [id number] Kelvin Ibarra 12/21 [facility] Emergency [id number] Macy Mckeon 12/29 [facility] Procedures Procedure Code Date Perfomer Comments Source None (qualifier value) [id number] [facility] Social History Social History Date Source Social History TypeResponse Tobacco Daily 10+ cigarettes, Cigarettes, Chewing tobacco Smoking Status Current every day smoker 01/26/2016 [facility] Social History TypeResponse Tobacco Daily 10+ cigarettes, Cigarettes, Chewing tobacco Smoking Status Current every day smoker 01/26/2016 [facility] Assessment and Plan Result Assessment and Plan Date Source Assessment and Plan No data available fo r this section 11/30/2015 [facility] Assessment and Plan No data available fo r this section 11/15/2015 [facility]
--- OUTSIDE RECORDS SUMMARY | 2023-06-21 09:41 | XMS_ITS | Continuity of Care Document ---
Author Name Unknown Organization [facility] Address [address] [place] [address] Phone Care Team Providers Care Lapel Padder Blindstitch Name Role Phone Services, Enabling Unavailable Unavailable Helena Leahy Unavailable Unavailable Procedures Procedure Date DISCHARGED OTHER NONE FACE TO FACE CASE MANAGEMENT FACE TO FACE HOUSING NONE FACE TO FACE CASE MANAGEMENT NONE FACE TO FACE CASE MANAGEMENT NONE FACE TO FACE CASE MANAGEMENT FACE TO FACE HOUSING FACE TO FACE CM MENTAL HEALTH 6 FACE TO FACE LEGAL NONE FACE TO FACE CASE MANAGEMENT NONE FACE TO FACE CASE MANAGEMENT FACE TO FACE CASE MANAGEMENT FACE TO FACE HOUSING FACE TO FACE CM SSI INCOME FACE TO FACE REG TRANSIT FACE TO FACE BUS PASS OTHER FACE TO FACE CM SSI INCOME FACE TO FACE CASE MANAGEMENT FACE TO FACE HOUSING FACE TO FACE REG TRANSIT NONE FACE TO FACE CASE MANAGEMENT FACE TO FACE CASE MANAGEMENT FACE TO FACE CM PCP FACE TO FACE CM MENTAL HEALTH 6 NONE FACE TO FACE CASE MANAGEMENT FACE TO FACE CASE MANAGEMENT FACE TO FACE CM FOOD BANK FACE TO FACE HOUSING NONE FACE TO FACE TRANSPORTATION 2015 FACE TO FACE TRANSPORTATION NONE FACE TO FACE CASE MANAGEMENT FACE TO FACE CASE MANAGEMENT LINKED CONNECTED TO TRANSITIONAL HOUSING NONE FACE TO FACE CASE MANAGEMENT NONE FACE TO FACE CASE MANAGEMENT NONE FACE TO FACE CASE MANAGEMENT NONE FACE TO FACE CASE MANAGEMENT NONE FACE TO FACE CASE MANAGEMENT FACE TO FACE CASE MANAGEMENT NONE FACE TO FACE CASE MANAGEMENT FACE TO FACE TRANSPORTATION HOUSING LINKED CONNECTED TO TRANSITIONAL HOUSING FACE TO FACE BUS PASS OTHER FACE TO FACE BUS PASS OTHER NONE FACE TO FACE CASE MANAGEMENT NONE FACE TO FACE CASE MANAGEMENT FACE TO FACE CASE MANAGEMENT FACE TO FACE HOUSING NONE FACE TO FACE TRANSPORTATION 2015 NONE FACE TO FACE CASE MANAGEMENT FACE TO FACE CASE MANAGEMENT INTAKE FACE TO FACE CASE MANAGEMENT FACE TO FACE CM PCP FACE TO FACE CM MENTAL HEALTH 6 FACE TO FACE CM FOOD BANK FACE TO FACE CRISIS RESPITE Advance Directives Directive Yes / No Effective Date File Name No Information Encounters Encounter Description Practice Location Reason(s) For Visit Diagnoses Date Provider Providers Copied on Encounter [facility], [address] [place] [address], [id number], tel:[phone] [facility] Case Management No Information 6 Services Enabling. [address] [place] [address], [id number] , . tel: [phone] Consulting Provider: Helena rucker, [address] [place] [address], [address]. tel:[phone] [facility], [address] [place] [address], [id number], tel:[phone] [facility] Case Management No Information 6 Services Enabling. [address] [place] [address], [id number] , . tel: [phone] Consulting Provider: Helena rucker, [address] [place] [address], [address]. tel: [phone] [facility], [facility] [place], [place], [id number], [place] tel: [phone] [facility] Case Management No Information Apr-2 2-201 6 Services Enabling. [address] [place] [address], [id number] , [place]. tel: [phone] Consulting Provider: Helena rucker, [address] [place] [address], [address]. tel: [phone] [facility], [address] [place] [address], [id number], [place] tel: [phone] [facility] Case Management No Information Feb-1 8-201 6 Services Enabling. [address] [place] [address], [id number] , [place]. tel: [phone] Consulting Provider: Helena rucker, [address] [place] [address], 238[address]. tel: [phone] [facility], [address] [place] [address], [id number], [place] tel: [phone] [facility] Case Management No Information Apr-0 5-201 6 Services Enabling. [address] [place] [address], [id number] , [place]. tel: [phone] Consulting Provider: Helena rucker, [address] [place] [address], [address]147. tel: [phone] [facility], [address] [place] [address], [id number], [place] tel: [phone] [facility] Case Management No Information Apr-0 4-201 6 Services Enabling. [address] [place] [address], [id number] , [place]. tel: [phone] Consulting Provider: Helena Mcmillan [place], [address] [place] [address], [address]. tel: [phone] [facility], [address] [place] [address], [id number], [place] tel: [phone] [facility] Case Management No Information Jan-3 1-201 6 Services Enabling. [facility] [place], [place], [id number] , [place]. tel: [phone] Consulting Provider: Helena rucker, [address] [place] [address], [address]. tel: [phone] [facility], [address] [place] [address], [id number], tel: [phone] [facility] Case Management No Information Jan-3 0-201 6 Services Enabling. [address] [place] [address], [id number] , [place]. tel: [phone] Consulting Provider: Helena rucker, [address] [place] [address], [address]. tel: [phone] [facility], [address] [place] [address], [id number], tel: [phone] [facility] Case Management No Information Jan-2 9201 6 Services Enabling. [address] [place] [address], [id number] , [place]. tel: [phone] Consulting Provider: Helena rucker, [address] [place] [address], [address]. tel: [phone] [facility], [address] [place] [address], [id number], tel: [phone] [facility] Case Management No Information Jan-2 8201 6 Services Enabling. [address] [place] [address], [id number] , [place]. tel: [phone] Consulting Provider: Helena rucker, [address] [place] [address], [address]. tel: [phone] [facility], [address] [place] [address], [id number], [place] tel: [phone] [facility] Case Management No Information Jan-2 5-201 6 Services Enabling. [address] [place] [address], [id number] , [place]. tel: [phone] Consulting Provider: Helena rucker, [address] [place], [address]. tel: [phone] [facility], [facility] [place], [place], [id number], tel: [phone] [facility] Case Management No Information 4-201 6 Services Enabling. [address] [place] [address], [id number] , [place]. tel: [phone] Consulting Provider: Helena rucker, [address] [place] [address], [address]. tel: [phone] [facility], [address] [place] [address], [id number], tel: [phone] [facility] Case Management No Information 3-201 6 Services Enabling. [address] [place] [address], [id number] , [place]. tel: [phone] Consulting Provider: Helena rucker, [address] [place] [address], [address]. tel: [phone] [facility], [address] [place] [address], [id number], [place] tel: [phone] [facility] Case Management No Information 2-201 6 Services Enabling. [address] [place] [address], [id number] , [place]. tel: [phone] Consulting Provider: Helena rucker, [address] [place] [address], [address]. tel: [phone] [facility], [address] [place] [address], [id number], [place] tel: [phone] [facility] Case Management No Information 1 6 Services Enabling. [address] [place] [address], [id number] , . tel: [phone] Consulting Provider: Helena rucker, [address] [place] [address], [address]. tel: [phone] [facility], [address] [place] [address], [id number], tel: [phone] [facility] Case Management No Information 7-201 6 Services Enabling. [address] [place] [address], [id number] , [place]. tel: [phone] Consulting Provider: Helena rucker, [address] [place] [address], [address]. tel: [phone] [facility], [address] [place] [address], [id number], tel: [phone] [facility] Case Management No Information 6-201 6 Services Enabling. [address] [place] [address], [id number] , [place]. tel: [phone] Consulting Provider: Helena rucker, [address] [place] [address], [address]. tel: [phone] [facility], [address] [place] [address], [id number], tel: [phone] [facility] Case Management No Information 0-201 6 Services Enabling. [address] [place] [address], [id number] , [place]. tel: [phone] Consulting Provider: Helena rucker, [address] [place] [address], [address]. tel: [phone] [facility], [address] [place] [address], [id number], tel: [phone] [facility] Case Management No Information 0 8-201 6 Services Enabling. [address] [place] [address], [id number] , [place]. tel: [phone] Consulting Provider: Helena rucker, [address] [place] [address], [address]674. tel: [phone] [facility], [address] [place] [address], [id number], tel: [phone] [facility] Case Management No Information 0 7-201 6 Services Enabling. [address] [place] [address], [id number] , . tel: [phone] Consulting Provider: Helena rucker, [address] [place] [address], 7[address]. tel: [phone] [facility], [address] [place] [address], [id number], tel: [phone] [facility] Case Management No Information Mar-0 4-201 6 Services Enabling. [address] [place] [address], [address] [place] [address] , . tel: [phone] Consulting Provider: Helena rucker, [address] [place] [address], [address]. tel: [phone] [facility], [address] [place] [address], [id number], tel: [phone] [facility] Case Management No Information Mar-0 3-201 6 Services Enabling. [address] [place] [address], [address] [place] [address] , . tel: [phone] Consulting Provider: Helena rucker, [address] [place] [address], [address]. tel: [phone] [facility], [address] [place] [address], [id number], tel: [phone] [facility] Case Management No Information Mar-0 2-201 6 Services Enabling. [address] [place] [address], [id number] , . tel: [phone] Consulting Provider: Helena rucker, [address] [place] [address], 15441. tel: [phone] [facility], [address] [place] [address], [id number], tel: [phone] [facility] Case Management No Information Mar-0 1-201 6 Services Enabling. [address] [place] [address], [id number] , . tel: [phone] Consulting Provider: Helena rucker, [address] [place] [address], [address]. tel:[phone] [facility], [address] [place] [address], [id number], tel:[phone] [facility] Case Management No Information Services Enabling. [address] [place] [address], [id number] , . tel: [phone] Consulting Provider: Helena rucker, [address] [place] [address], [address]. tel:[phone] [facility], [address] [place] [address], [id number], tel:[phone] [facility] Case Management No Information Services Enabling. [address] [place] [address], [id number] , . tel: [phone] Consulting Provider: Helena rucker, [address] [place] [address], [address]39. tel:[phone] Family History Family Member Type Diagnosis Age At Onset No Information Payers Payer name Insurance type Covered alliance party ID Authorrebekaha wes(s) T3 [facility] 11 [id number] Social History Type Description Quantity Date Captured Comments Sex Male Smoking Status No Information Chief Complaint And Reason For Visit No Information Reason For Referral Reason For Referral No Information History Of Present Illness Encounter Date Complaint History Of Prese nt Illness No Information Functional Status Date Functional Assessmen t No Information Instructions Date Instruction Additional Infor mation No Information Assessments Type Assessment Date No Information Patient Care Teams Name Effective Dates (start - stop) Status Members No Information
--- NOTE | 2023-06-21 09:45 | DI.RAD_ITS ---
Exam(s) XR PORTABLE CHEST AP EXAM: XR PORTABLE CHEST AP CLINICAL HISTORY: sob TECHNIQUE: 2D digital imaging was performed of the chest. One image was obtained. An AP view was ob tained. COMPARISON: CR XR CHEST 2V PA LATERAL from 06/11/2023 FINDINGS: MEDIASTINUM: Normal. HEART: Normal. PULMONARY VASCULATURE: Normal. LUNGS: Clear. PLEURAL SPACE: No pleural effusion or pneumothorax. BONE:Within normal limits for the patient's age. OTHER FINDINGS:Normal. IMPRESSION: No acute pulmonary findings. DATA REPOSITORY: RADIATION DOSE DELIVERED:
--- NOTE | 2023-06-21 09:54 | ED.GENADUL_ITS ---
Discharge Plan Disposition Patient Disposition: Psychiatric Hospital/Unit Specific Psychiatric Facility: [facility] Condition: Good Discharge Details Chief Complaint: PsychEval Clinical Impression: Depression Primary Care Provider: None,None ED Provider: Von Beck Home Meds and New Rx's Prescriptions: No Action No Known Home Meds Medical Decision Making 38-year-old -[place] male with past medical history of depression, prior suicidality, who is currently homeless, presents today for evaluation of dep ression and mild shortness of breath. Patient states that he smokes regularly, and stop smoking today and that made him feel short of breath. He has asthma but does not use inhalers. Nurse to his depression he states it has been going on for the last year. He states that he would kill himself by taking anything or everything. He denies any auditory visual hallucinations. No other complaints at this time. He states that he does use drugs regularly, the last that was used was ice and it was use last night. No other complaints at this time. No other modifying factors. Exam demonstrates well-appearing male no acute distress. Lungs are clear. Vital signs stable. Blood clot and cardiac etiology unlikely, however we will medically clear at this for the patient. Will evaluate for mental health, monitor closely and reassess. 5:58 PM Patient has been medically cleared. The patient is able to speak clearly. There is no demonstration of any slurring of speech. There is evidence of clear decision making capacity. Patient is able to ambulate well without any difficulty. There are no signs of ataxia or stumbling motions. Laboratory workup benign. Mental health is seen and evaluated the patient and agrees with the need for voluntary placement. We did contact [facility] and I spoke with Dr. [place]. This was discussed. She agrees with plan. Patient will be transferred to [facility] for further management for inpatient psychiatric help. I have extensively reviewed the treatment plan with the patient. I have addressed all patient concerns at this time. I have also discussed the plan with the admitting physician and they agree with the current assessment and plan and have agreed to assume responsibility for the patient. All parties demonstrate verbal understanding and agreement with our assessment and plan at this time. The documentation in this chart was dictated using [employer] dictation software. Please excuse any dictation errors. At time of transfer the patient was reassessed and continued to demonstrate No signs of acute respiratory distress requiring intubation, hemodynamic instability requiring pressor support, or rapidly declining mental status. HPI General Date/Time Provider Initiated Documentation: 06/21/23 09:35 . HPI Narrative: 38-year-old -[place] male with past medical history of depression, prior suicidality, who is currently homeless, presents today for evaluation of depression and mild shortness of breath. Patient states that he smokes regularly, and stop smoking today and that made him feel short of breath. He has asthma but does not use inhalers. Nurse to his depression he states it has been going on for the last year. He states that he would kill himself by taking anything or everything. He denies any auditory visual hallucinations. No other complaints at this time. He states that he does use drugs regularly, the last that was used was ice and it was use last night. No other complaints at this time. No other modifying factors. Related Data Home Medications Medication Instructions Recorded Confirmed Unknown [No Known Home Meds] 06/11/23 06/11/23 Allergies Allergy/AdvReac Type Severity Reaction Status Date / Time tomato Allergy Intermediate Hives Unverified 06/21/23 09:40 General Stated Complaint: PsychEval MIRI: 2 Review of Systems All systems reviewed & are unremarkable except as noted in HPI and below PFSH All Active Problems (Updated 06/21/23 @ 17:59 by Von Beck DO) Depression (Chronic) Social History Smoking/Tobacco Use Status: Current every day Tobacco Type: smokeless tobacco Smoking risk assessment performed?: Yes Alcohol Intake: current Alcohol Intake frequency: 3 or more drinks per day Alcohol type: beer Drug use: Daily Substance use type: marijuana, crack/cocaine, heroin and amphetamines Details: does whatever he can get his hands on Housing: homeless Exam Narrative Exam Narrative: 1.Const: Well-nourished, Well-developed, appearing stated age 2.Eyes: PERRL, no conjunctival injection, and symmetrical lids. 3.ENT: Atraumatic external nose and ears. Moist MM. Neck: Symmetric, trachea midline, No thyromegaly. 4.CVS: +S1/S2, No murmurs or gallops. Peripheral pulses 2+ and equal in all extremities. Brisk capillary refill in all extremities. 5.RESP: Unlabored respiratory effort. Clear to auscultation bilaterally. No wheezes rales or rhonchi 6.GI: Soft, Nontender/Nondistended, No hepatosplenomegaly. No guarding or rebound. 7.MSK: Normocephalic/Atraumatic, Extremities w/o deformity or ttp No cyanosis or clubbing, Normal movement of all extremities 8.Skin: Warm, Dry. No rashes or lesions. 9.Neuro: special officer II-XII grossly intact. Sensation grossly intact, no focal neurologic deficits. 10.Psych: (AAO) x3. Appropriate mood and affect Course Vital Signs Vital signs: Vital Signs Temperature 36.9 C 06/21/23 09:37 Pulse 81 06/21/23 09:37 Respiratory Rate 16 06/21/23 09:37 Blood Pressure 125/76 06/21/23 09:37 Pulse Oximetry 98 06/21/23 09:37 Temperature 36.9 C 06/21/23 09:37 Temperature Source Temporal Artery Scan 06/21/23 09:37 Pulse 81 06/21/23 09:37 Respiratory Rate 16 06/21/23 09:37 Respiratory Effort Short of Breath 06/21/23 09:40 Blood Pressure 125/76 06/21/23 09:37 Blood Pressure Position Sitting 06/21/23 09:37 Pulse Oximetry 98 06/21/23 09:37 Oxygen Delivery Method Room Air 06/21/23 09:37 Oxygen Flow Rate 0 06/21/23 09:37 PAWSS Have you Been Recently Intoxicated or Drunk Within the Last 30 days?: Yes Have you Ever Experienced Previous Episodes of Alcohol Withdrawal?: Yes Have you ever Experienced Withdrawal Seizures?: No Have you ever Experienced Delirium Tremens(DT)s?: No Have you ever undergone Alcohol Rehabilitation Treatment (i.e, inpt ot outpatient treatment programs)?: No Have you ever Experienced Blackouts?: Yes Have you ever Combined Alcohol with other Downers within the last 90 days?: No Have you ever Combined Alcohol with any other Substance of Abuse during the last 90 days?: Yes Positive Blood Alcohol level on Presentation? [PCS.BAL]: Yes Evidence of Increased Autonomic Activity (i.e. HR>120, tremor, sweating, agitation, nausea)?: No Result: 6
[2023-06-21 10:17] LABS: Abs Immature Grans 0.04 10^3/uL (0.0-0.06); Absolute Basophil Count 0.05 10^3/uL (0.0-0.2); Absolute Eosinophil Count 0.02 10^3/uL (0.0-0.7); Absolute Lymphocyte Count 1.34 10^3/uL (1.2-3.4); Absolute Monocyte Count 0.54 10^3/uL (0.1-0.8); Absolute Neutrophil Count 4.31 10^3/uL (1.2-6.7); Basophils % 0.8; Eosinophils % 0.3; HCT 40.9 % (40.0-50.0); HGB 13.6 g/dL (13.5-17.5); Immature Grans % 0.6; Lymphocytes % 21.3; MCH 32.4 pg (27.0-33.0); MCHC 33.3 % (32.0-36.0); MCV 97 fL (80-95); Monocytes % 8.6; Neutrophils % 68.4; Platelet Count 247 10^3/uL (130-400); RDW 11.9 % (11.8-14.1); RDW-SD 42.5 fL
[2023-06-21 10:33] LABS: Salicylate 4.2 mg/dL (<2.8)
[2023-06-21 10:36] LABS: Acetaminophen < 2 ug/mL (10-30)
[2023-06-21 10:43] LABS: Troponin I < 50 ng/L (<or=60)
[2023-06-21 11:03] LABS: D-Dimer 120 ng/mlFEU (<500)
[2023-06-21 11:24] LABS: ALT 32 U/L (16-63); AST 35 U/L (15-37); Albumin 3.9 g/dL (3.4-5.0); Alkaline Phosphatase 72 U/L (46-116); Anion Gap 10.9 mmol/L (3-11); BUN 12 mg/dL (7-18); Bilirubin, Total 0.6 mg/dL (0.2-1.0); CO2 25.1 mmol/L (21.0-32.0); CREATININE 0.9 mg/dL (0.70-1.30); Chloride 103 mmol/L (98-107); ETHANOL BLOOD 67.2 mg/dL (<10); Estimated GFR 111.42 (mL/min/1.73m2); Glucose 87 mg/dL (74-106); Potassium 3.8 mmol/L (3.5-5.1); Sodium 139 mmol/L (136-145); TSH (W/Ref FT4) 0.92 uIU/mL (0.36-3.74); Total Protein 7.6 g/dL (6.4-8.2)
--- NOTE | 2023-06-21 12:56 | CMSP_ITS ---
Date of service: 06/21/23 Time of Service: 12:57 Care Management Safety Plan Status Status: Voluntary Reason for Wait Reason for Wait: Inpatient Admission Safety Plan Safety Plan: CHIEF COMPLAINT: Yon presents in the ED seeking a voluntary psychiatric hospitalization for suicidal ideation. He is homeless and has a history of depression and substance use. He reports being psychiatrically hospitalized in [place] a while ago but does not offer any other details about the hospitalization. Yon is originally from [place], [place]. He took a [employer] bus to [place] for reasons that are unclear to CM. Yon was assessed by Adilia [facility] Crisis Screener, and found to meet criteria for a voluntary placement. Referrals are faxed to [facility], [facility], [facility], and [facility] for review. Yon will remain at [facility] and will be reassessed daily by [facility] until a bed is secured for him. CM will continue to follow. VOLUNTARY FOR INPATIENT PSYCHIATRIC STABILIZATION.? Patient is appropriate in all interactions since arriving at [facility]; Pt has demonstrated appropriate coping and communication skills, has articulated his or her needs and concerns and is fully engaged during staff interactions. Safety plan has been established with patient, and care team, to adhere to patient goals, identify restrictions based on behavioral status, address nutrition, and determine allowed personal belongings, tools for hygiene and personal care. Determine level of activity including ambulation, level of supervision, visitors, and determine privileges based on behaviors and level of engagement by pt. SAFETY PLAN: 1. Will remain on suicide precautions. In Paper Clothes 2. Will remain in room under direct supervision of one-on-one staff at all times provided by [employer], COOKER SYRUP, CORRUGATOR SUPERVISOR community outreach director. 3. May have paper cups, plates, finger foods as well as a cardboard spoon with which to eat meals. 4. Follow [facility] Management of the Admitted Behavioral Health Patient policy. 5. Comfort bath system only, shower permitted with escort at RN discretion. 6. No personal belongings-soft items permitted at RN discretion. 7. Visitors-none at this time. 8. Activities: soft cart items, television and other activities at RN discretion. 9.? Bathroom privileges with escort in the ED, available in room without limitation on M/S. 10. Phone: May use indico phone at RN discretion. 11. Due to VOLUNTARY status, if patient wishes to leave [facility], staff will contact [facility] Crisis Screener ([phone]) and On-Call Preconstruction Manager ([phone]) as soon as possible. In the event of elopement, notify [facility] Police ([phone]). Patient is currently voluntarily at [facility] and seeking inpatient admission when a bed becomes available. [facility] Frontline Malt Specifications Control Assistant will continue seeking placement. Please contact the Selenium Plant Operator Preconstruction Manager ([phone]) and [facility] Malt Specifications Control Assistant ([phone]) for any needed changes in the Safety Plan. Safety plan has been provided to interdepartmental care team.
--- NOTE | 2023-06-21 12:56 | PDOC.CMSAFE ---
Date of service: 06/21/23 Time of Service: 12:57 Care Management Safety Plan Status Status: Voluntary Reason for Wait Reason for Wait: Inpatient Admission Safety Plan Safety Plan: CHIEF COMPLAINT: Yon presents in the ED seeking a voluntary psychiatric hospitalization for suicidal ideation. He is homeless and has a history of depression and substance use. He reports being psychiatrically hospitalized in [place] a while ago but does not offer any other details about the hospitalization. Yon is originally from [place], [place]. He took a [employer] bus to [place] for reasons that are unclear to CM. Yon was assessed by Adilia [facility] Crisis Screener, and found to meet criteria for a voluntary placement. Referrals are faxed to [facility], [facility], [facility], and [facility] for review. Yon will remain at [facility] and will be reassessed daily by [facility] until a bed is secured for him. CM will continue to follow. VOLUNTARY FOR INPATIENT PSYCHIATRIC STABILIZATION.? Patient is appropriate in all interactions since arriving at [facility]; Pt has demonstrated appropriate coping and communication skills, has articulated his or her needs and concerns and is fully engaged during staff interactions. Safety plan has been established with patient, and care team, to adhere to patient goals, identify restrictions based on behavioral status, address nutrition, and determine allowed personal belongings, tools for hygiene and personal care. Determine level of activity including ambulation, level of supervision, visitors, and determine privileges based on behaviors and level of engagement by pt. SAFETY PLAN: 1. Will remain on suicide precautions. In Paper Clothes 2. Will remain in room under direct supervision of one-on-one staff at all times provided by [employer], RIVETER AUTOMOBILE BRAKES, TICKETER research program coordinator. 3. May have paper cups, plates, finger foods as well as a cardboard spoon with which to eat meals. 4. Follow [facility] Management of the Admitted Behavioral Health Patient policy. 5. Comfort bath system only, shower permitted with escort at RN discretion. 6. No personal belongings-soft items permitted at RN discretion. 7. Visitors-none at this time. 8. Activities: soft cart items, television and other activities at RN discretion. 9.? Bathroom privileges with escort in the ED, available in room without limitation on M/S. 10. Phone: May use [employer] phone at RN discretion. 11. Due to VOLUNTARY status, if patient wishes to leave [facility], staff will contact [facility] Crisis Screener ([phone]) and On-Call Technical Support Internship ([phone]) as soon as possible. In the event of elopement, notify [facility] Police ([phone]). Patient is currently voluntarily at [facility] and seeking inpatient admission when a bed becomes available. [facility] Frontline Global Manager will continue seeking placement. Please contact the Iv Rn Technical Support Internship ([phone]) and [facility] Global Manager ([phone]) for any needed changes in the Safety Plan. Safety plan has been provided to interdepartmental care team.
[2023-06-21 12:59] LABS: Bilirubin Negative (Negative); Blood Negative (Negative); Clarity Clear (Clear); Glucose Negative (Negative); Ketones Negative (Negative); Leukocyte Esterase Negative (Negative); Nitrite Negative (Negative); Specific Gravity 1.025 (1.005-1.025); Urobilinogen 0.2 mg/dL (Up to 0.2); pH 5.5 (5-8)
--- NOTE | 2023-06-21 13:16 | NUR.NOTE ---
Patient does not know what medications he is on. He states he gets them from the [facility] [place]. Nursing Note:
[2023-06-21 13:21] LABS: *AMPHETAMINES SCREEN URINE Negative (Negative); *BENZODIAZEPINES SCREEN URINE Negative (Negative); Cannabinoids THC Negative (Negative); Cocaine Screen,Urine Negative (Negative); METHADONE URINE SCREEN Negative (Negative); OPIATES URINE SCREEN Negative (Negative)
[2023-06-21 13:22] LABS: *BARBITURATES SCREEN URINE Negative (Negative); Tricyclic Antidepressants Negative (Negative)
--- NOTE | 2023-06-21 16:07 | PDOC.MHCN_ITS ---
Date of service: 06/21/23 Time of Service: 16:07 PHQ-9 Over the last 2 weeks, how often have you been bothered by any of the following problems? 1. Little interest or pleasure in doing things: nearly every day 2. Feeling down, depressed, or hopeless: nearly every day 3. Trouble falling or staying asleep, or sleeping too much: more than half the days 4. Feeling tired or having little energy: nearly every day 5. Poor appetite or overeating: nearly every day 6. Feeling bad about yourself - or that you are a failure or have let yourself and your family down: nearly every day 7. Trouble concentrating on things, such as reading the newspaper or watching television: several days 8. Moving or speaking so slowly that other people could have noticed? - Or the opposite - being so fidgety or restless that you have been moving around a lot more than usual: nearly every day 9. Thoughts that you would be better off or of hurting yourself in some way: nearly every day Total score: 24 If you checked off any problems, how difficult have these problems made it for you to do your work, take care of things at home, or get along with other people?: extremely difficult PHQ-9 Results: Positive Source: Developed by Drs. Daniel Farfan, Kandice Silva, Den Hernandez and colleagues, with an educational alida from [employer]. Suicide Severity Rate CSSRS Have you wished you were or wished you could go to sleep and not wake up?: Yes Have you actually had any thoughts of killing yourself?: Yes CSSRS2 Have you been thinking about how you might do this?: Yes Have you had these thoughts and had some intention of acting on them?: Yes Have you started to work out or worked out the details of how to kill yourself? Do you intend to carry out this plan?: Yes CSSRS3 Have you ever done anything, started to do anything or prepared to do anything to end your life?: Yes CSSRS4 Was this within the past three months?: Yes Screening Score Total Score: 8 Screening: Positive Mental Health Emergency Note Release [facility] release signed:: Yes Reason for Visit The client arrived on 06.21.23 to seek voluntary inpatient treatment due to reported suicidal thoughts. In the last 2 weeks has the pt presented for ES prior to today?: Yes, presented at [facility] ED Client Information Client is: New Well Housed: No,status: Homeless Non Suicidal Self Injury Current: Yes, cutting wrist and thumb per jose ramon report History: yes, same Safety Risk/Harm to Self or Others Current Ideation to Harm Self or Others: No Risk: Does risk to harm exist?: yes. Access to means: Yes. Types of Means: Other weapons. Details: razors . Counseling provided: Yes Risk: Moderate Risk Duty to warn indicated: No Asssessment/Mental Status Appearance: Other (Unable to assess as he was covered in blankets head to toe and partly over his mouth. ) Attitude: Cooperative and Guarded Behavior: Unremarkable Speech: Soft Affect: Flat Mood: Depressed Thought process: Poverty of content Hallucinations: No Delusions: No Attention: Unremarkable Perception: Not impaired Orientation: Fully orientated Memory: Intact Insight: Fair Judgement: Poor Neurovegetative Symptoms Sleep: Decrease Appetitie: Decrease Interests: Decrease Energy: Decrease Libido: Not applicable Substance Use: Drug Issues: Dependence Do you use nicotine?: Yes Have you used substances in the last 7 days?: yes, ICE per his report to Dr. Beck and last night. Additional Issues: Assaultive/Threatening Behavior: No Medical Concerns: No Client engaged in active self harm w/weapon: No Threatening to run away: No Child reported abuse/neglect: No Voluntarily presenting for services: Yes Domestic violence is a concern: No Extreme Psychosis or extreme behavior is present: Yes Impression The client is a 38 year old, black male, who is homeless and had been staying in a senior care in [facility] but has come to [facility] twice in less than a week. He reported that he is coming her because he can't get the help he needs at [facility]. The client is reporting that he is suicidal and has a plan and a 10/10 level of risk if he were to leave the hospital. He also stated that he is suicidal because he can't get back home to where he was and when asked where that was he said with his brother but I don't know where that is. The client stated that his children are his deterrents and when asked how old they were he reported again I don't know. It seems that the client is skillful in knowing what to say to stay at the hospital and get into treatment. He reported to [facility] last week that he was there to stay in the new unit. It was explained to him that it is not a treatment bed there nor is is open. According to a conversation with [facility] Head Waiter/Waitress Banquet, Priti Reynolds the client is from [address] [facility] in [place] [place] [facility] [place]. His father at the age on 67 on 09.14.2022. He has a brother, Oscar Winn also of [facility] and his father's Keira Cobos also from [place]. It is unsure if Keira is his biological mother or a step mother as all have different last names. Priti is going to try and locate numbers for these family members to connect with.? Resources Reosurces reviewed and given:: [id number] Plan/Disposition Recommended Disposition: Hospitalization facilities contacted. Plan: The client will remain at [facility] pending acceptance to a psychiatric hospital. He will be reevaluated daily by [facility] for placement.? Person reported agreement to plan: Yes Facilities contacted if Applicable [facility] Not accepted, Other (Reviewing ) [facility] Not accepted, No bed available [facility] Not accepted, Other (Reviewing )[facility] Not accepted, No bed available Reports/communication Outcome discussed with: ED/Personnel
--- NOTE | 2023-06-21 19:02 | NUR.NOTE ---
This RN received report by Nereida YUSUF, assumed care at this time, pt resting with eyes closed, even and unlabored respirations.
--- NOTE | 2023-06-21 20:09 | NUR.NOTE ---
Repot given to Rowdy to Nereida YUSUF
[2023-06-21] MEDS: Nicotine 21 MG/24 HR PATCH (20:10)
--- NOTE | 2023-06-21 20:21 | ED.PROG_ITS ---
Date of service: 06/21/23 Time of Service: 20:00 Medical Decision Making Assumed care of patient at 1999. Awaiting transportation to [facility]. Has already been accepted. Doc to Doc report has been given by Dr Farfan. Please see his note for full details. Sign Out Sign Out Data: Sign Out Comment: Patient has been accepted at [facility] for depression and suicidal ideations.. Pending nurse to nurse and transport. Last updated by Von Beck DO at 06/21/23 19:30 Discharge Plan Disposition Patient Disposition: Psychiatric Hospital/Unit Specific Psychiatric Facility: [facility] Condition: Good Discharge Details Clinical Impression: Depression Primary Care Provider: None,None ED Provider: Valerie Caballero Home Meds and New Rx's Prescriptions: No Action No Known Home Meds
[2023-06-21 20:55] VITALS: BP 122/68; PULSE 79; RESP 15; O2SAT 99
== END 2023-06-21 21:20 ==
PROVIDERS: Student in an Organized Health Care Education/Training Program; Emergency Provider Emergency Medicine Emergency Medical Services
DX: R45.851 Suicidal ideations (principal); Z79.899 Other long term (current) drug therapy
CPT/HCPCS: 80053; 80307; 93005; 99284; 71045; 80320; 80329; 81003; 84443; 84484; 85025; 85379; 93010